=== PATIENT | female | born 1955 | race African-American/Black ===

== ENCOUNTER 2017-03-23 15:38 | Inpatient (IN) ==
[~2017-03-23 15:38] MED LIST: SODIUM CHLORIDE 0.9% 1,000 ML IV SCH
[2017-03-23] MEDS ORDERED: SODIUM CHLORIDE 0.9% 500 ML IV STA (16:34)
--- NOTE | 2017-03-23 16:43 | Emergency Department Note ---
IMartinez Brittany, am scribing for, and in the presence of, Alejandra Heath DO 16: 41. IKumar Debra, DO, personally performed the services described in this documentation, ascribed by Elizabeth Henriquez in my presence, and it is both accurate and complete [id number] . Arrival - Arrival Chief Complaint: Blood Pressure Stated Complaint: Hypotension ED Nursing Triage Note: Patient brought in per EMS with a complaint of weakness and diaphoresis. Started prior to lunch. Patient is a MWF dialysis patient. Went to dialysis yesterday. States that she got nauseated today. History of polycystic kidney disease. Mode of Arrival: Stretcher Limitations: No Limitations Source: Patient, Family Time Seen by Provider: 03/23/17 16:19 - History of Present Illness HPI Narrative: This is a 61 y/o black female,who presents to the ED with c/o decreased BP which started 1 hour [employer]LE [employer]. She states she had diarrhea yesterday. She reports 2 episodes of diarrhea. She denies any vomiting, fever, or chills, but notes nausea. She is a current dialysis pt, Dr. Contreras follows her. She reports her last dialysis Tx was yesterday and she felt normal after it. Pt has no other complaints/pain in the ED at this time. Pt has a PMHx of A-fib, SVT, thyroid disorder, Dialysis M-W-F, renal failure, polycystic kidney disease, diverticulosis, pancreatitis, arthritis, and sickle cell disease. Pt has had a bilateral nephrectomy, abdominal surgery, gastric bypass surgery, thyroid surgery, cholecystectomy, hysterectomy, and gynecological surgery. PT has a family medical Hx of HTN, diabetes, and heart disease. Pt denies a social Hx. Onset (ago): hour(s) (1 Hour [employer]) Consistency: constant Severity: moderate Date of Last Menstrual Period: Hysterectomy Allergies/Adverse Reactions: Allergies Allergy/AdvReac Type Severity Reaction Status Date / Time Penicillins Allergy Intermediate ANAPHYLAXIS Verified 12/27/15 19:40 Sulfa (Sulfonamide Allergy Intermediate ITCHING Verified 12/27/15 19:40 Antibiotics) codeine AdvReac Intermediate Abdominal Verified 12/27/15 19:40 Pain phenytoin [From Dilantin] AdvReac Intermediate Migraine Verified 12/27/15 19:40 propoxyphene [From Darvon] AdvReac Intermediate Migraine Verified 12/27/15 19:40 Home Medications: Home Medications Medication Instructions Recorded Confirmed Type Promethazine HCl 25 mg PO Q6H 02/18/15 03/23/17 History Midodrine HCl 10 mg PO TID 02/20/16 03/23/17 History Cyanocobalamin (Vitamin B-12) 2,000 mcg PO DAILY 07/20/16 03/23/17 History [Vitamin B-12] Docusate Sodium Cap [Colace Cap] 100 mg PO BID 07/20/16 03/23/17 History Pantoprazole Sodium [Protonix] 40 mg PO QAM 07/20/16 03/23/17 History Aspirin EC Tab 81 mg PO DAILY 11/28/16 03/23/17 History Hydrocodone/Acetaminophen 1 tablet PO TID PRN 11/28/16 03/23/17 History [Hydrocodon-Acetaminophn 10-325] Omeprazole [Prilosec] 20 mg PO BID 12/14/16 03/23/17 History Calcium Acetate [Phoslo] 667 mg PO TID 03/23/17 03/23/17 History Review of System - Review of System 12 point system: reviewed and no additional remarkable complaints except as stated - Review of System Constitutional: Absent: chills, fever Gastrointestinal: Present: nausea, diarrhea. Absent: vomiting Endocrine: Present: other (Decreased BP) Medical,Surgical,& Family Hx - Medical History Cardio: History of: Cardiac Dysrhythmia (afib and SVT ), Valvular Heart Disease , Cardiovascular Problems No history of: Hypertension Neurology: History of: Migraine No history of: Seizures, TIA HEENT: History of: Eye Problem (GLASSES), HEENT Problems (allergies) Endocrine: History of: Thyroid Disorder (ELEVATED CALCIUM) Renal: History of: Dialysis (m-w-f), Renal Failure, Renal Problems (polycystic kidney disease) Gastrointestinal: History of: Diverticulitis/ Diverticulosis, Liver Problems ( polycystic disease), Pancreatitis, GI Problems Musculoskeletal: History of: Musculoskeletal Problems (arthritis) Hematology: History of: Anemia (Anemia of chronic disease), Sickle Cell Disease (Sickle cell trait) No history of: Blood Transfusion Reaction Reproductive: History of: Abnormal Pap Smear, Ovarian Cysts Other: No history of: Anesthesia Reactions - Surgical History Cardiac Surgeries: Patient Denies: Cardiac Catheterization (hx. ablation for svt.) Thoracic Surgeries: Surgical HX of;: Kidney (Renal Surgery) (Bilateral nephrectomy), Nephrectomy (Bilateral nephrectomy) Patient denies;: Organ Transplant, Lobectomy Neurologic Surgeries: Patient denies: Neurologic Surgery HEENT Surgeries: Surgical HX of: Thyroid Surgery (07/12/15, parathyroid removal) Patient denies: Eye Surgery, Tonsilectomy & Adenoidectomy Abdominal Surgeries: Surgical HX of: Abdominal Surgery, Cholecystectomy, Gastric Bypass Surgery Reproductive Surgeries: Surgical HX of;: Gynecologic Surgery, Hysterectomy ( With oophorectomy) - Family History Family History: Reports;: Family Diabetes, Family Heart Disease (PARENTS 2 BROTHERS), Family Hypertension (PARENTS SIBLINGS) - Social History Smoking Status: Never smoker Exam Vital Signs: Vital Signs Temperature 97.4 F L 03/23/17 15:47 Pulse Rate 74 03/23/17 15:52 Respiratory Rate 22 03/23/17 15:52 Blood Pressure 70/36 03/23/17 15:52 - General General appearance: alert, in no apparent distress - Head Head exam: Present: atraumatic, normocephalic, normal inspection - Eye Eye exam: Present: normal appearance, PERRL, EOMI. Absent: nystagmus, miosis, mydriasis - ENT ENT exam: Present: mucous membranes dry, TM's normal bilaterally, normal external ear exam - Neck Neck exam: Present: normal inspection, full ROM, trachea midline. Absent: tenderness, meningismus, lymphadenopathy, thyromegaly - Chest Chest inspection: Present: normal inspection, symmetric chest wall rise. Absent : tenderness, rash, abscess - Respiratory Respiratory exam: Present: normal lung sounds bilaterally. Absent: prolonged expiratory phase, rales, respiratory distress, rhonchi, stridor, wheezes - Cardiovascular Cardiovascular exam: Present: regular rate, normal rhythm, normal heart sounds. Absent: murmur, rubs, gallop, clicks, JVD - Abdominal Exam Abdominal exam: Present: soft, tenderness (Mild Diffuse Abdominial tenderness), normal bowel sounds. Absent: distention, guarding, rebound, rigidity - Rectal Exam Rectal exam: Present: deferred - Extremities Exam Extremities exam: Present: normal inspection, full ROM, normal capillary refill. Absent: tenderness, pedal edema, joint swelling, calf tenderness - Back Exam Back exam: Present: normal inspection, full ROM. Absent: tenderness, muscle spasm, rashes - Neurological Exam Neurological exam: Present: alert, oriented X3, CN II-XII intact. Absent: motor sensory deficit - Psychiatric Psychiatric exam: Present: normal affect, normal mood. Absent: depressed, agitated, anxious, manic - Skin Skin exam: Present: warm, dry, intact, normal color. Absent: rash, cyanosis, diaphoresis, erythema, pallor, mottled Course Course Narrative: spoke with hospitalist who will admit pt for hypotension. Results - Labs CBC & BMP: 03/23/17 17:12 03/23/17 17:12 Lab Results: I have reviewed the patients labs Labs: Laboratory Tests 07/20/16 07/20/16 03/23/17 05:58 05:58 17:12 WBC 7.9 RBC 3.28 L 3.51 L Hgb 10.4 L 10.6 L Hct 31.7 L 31.5 L MCV 89.7 MCH 30 MCHC 33.7 RDW 15.0 Plt Count 128 L MPV 11.7 Neut % (Auto) 80.4 H 67.4 Lymph % (Auto) 6.5 L 16.4 L Tripp % (Auto) 9.2 Eos % (Auto) 6.6 Baso % (Auto) 0.3 Neut # (Auto) 5.3 Lymph # (Auto) 0.6 L 1.3 L Tripp # (Auto) 0.9 H 0.7 Eos # (Auto) 0.5 Baso # (Auto) 0.0 Immature Gran % 0.1 Nucleated RBC % 0.0 Immature Gran # 0.01 Lymphocytes 9 L Nucleated RBCs # 0.00 Sodium Potassium 5.2 H Chloride Carbon Dioxide Anion Gap 17.2 H BUN 54 H Creatinine 10.80 H GFR Calculation BUN/Creatinine Ratio 5.00 L Glucose 115 H Calculated Osmolality Calcium Total Bilirubin AST ALT Alkaline Phosphatase Total Creatine Kinase Total Protein Albumin Globulin Albumin/Globulin Ratio 03/23/17 03/23/17 17:12 17:12 WBC RBC Hgb Hct MCV MCH MCHC RDW Plt Count MPV Neut % (Auto) Lymph % (Auto) Tripp % (Auto) Eos % (Auto) Baso % (Auto) Neut # (Auto) Lymph # (Auto) Tripp # (Auto) Eos # (Auto) Baso # (Auto) Immature Gran % Nucleated RBC % Immature Gran # Lymphocytes Nucleated RBCs # Sodium 138 Potassium 5.6 H Chloride 99 Carbon Dioxide 31 Anion Gap 13.6 BUN 60 H Creatinine 8.80 H GFR Calculation 6 BUN/Creatinine Ratio 6.00 Glucose 98 Calculated Osmolality 291.7 Calcium 8.2 L Total Bilirubin < 0.39 AST 16 ALT 14 Alkaline Phosphatase 124 H Total Creatine Kinase 148 Total Protein 6.4 Albumin 3.4 Globulin 3.0 Albumin/Globulin Ratio 1.1 - Diagnostic Findings Procedure: Chest x-ray: report reviewed by me (Chronic lung changes with bibasilar atelectasis and pulmonary hypoinflation, stable since December. No aute cardiopulmonary disease evident.) Disposition Clinical Impression: Hypotension Case discussed with: patient, patient's family Disposition: Still a Patient Time of Disposition: 18:49
--- NOTE | 2017-03-23 17:09 | XRay Report ---
XR chest 1V portable Indication: Abnormal breath sounds. Abnormal blood pressure. Chest one view: Comparison 12/14/2016. Innominate vein stent is again shown. Heart size remains normal. Coarsened interstitial markings of the lungs, pulmonary hypoinflation and bibasilar atelectasis versus scarring also stable. No new infiltrates. No significant pulmonary edema. Impression: Chronic lung changes with bibasilar atelectasis and pulmonary hypoinflation, stable since December. No acute cardiopulmonary disease evident. PROCEDURE INTERPRETED AT [facility] DEPARTMENT OF RADIOLOGY Final Report Signed by: Jaden Liu M.D.
[2017-03-23 17:26] LABS: Basophils % 0.3 % (0.0-0.8); Eosinophils # 0.5 10*3/uL (0.0-0.87); Eosinophils % 6.6 % (0.00-10.9); Hematocrit 31.5 VOL% (35.7-47.0); Hemoglobin 10.6 GM/DL (12.0-16.0); Immature Granulocytes % 0.1 %; Immature Granulocytes Absolute 0.01 #; Lymphocytes # 1.3 10*3/uL (1.4-4.0); Lymphocytes % 16.4 % (21.3-54.2); Mean Corpuscular HGB Conc 33.7 GM/DL (32-36); Mean Corpuscular Hemoglobin 30 PG (27-34); Mean Corpuscular Volume 89.7 FL (87-102); Mean Platelet Volume 11.7 FL (9.6-12.0); Monocytes # 0.7 10*3/uL (0.11-0.8); Monocytes % 9.2 % (1.7-12.7); Neutrophils # 5.3 10*3/uL (1.4-7.4); Neutrophils % 67.4 % (38.7-73.9); Platelet Count 128 T/CUMM (130-400); Red Blood Count 3.51 MC/CUMM (3.8-5.5); White Blood Count 7.9 T/CUMM (4-12)
[2017-03-23 17:41] LABS: Alanine Aminotransferase 14 U/L (13-56); Albumin 3.4 G/DL (3.4-5.0); Alkaline Phosphatase 124 U/L (45-117); Aspartate Amino Transferase 16 U/L (0-37); Bilirubin,Total < 0.39 MG/DL (0.2-1.0); Blood Urea Nitrogen 60 MG/DL (7-18); Calcium 8.2 MG/DL (8.5-10.1); Glucose 98 MG/DL (74-106); Osmolality,Calculated 291.7 MOS/KG (273-304); Potassium 5.6 MMOL/L (3.5-5.1); Sodium 138 MMOL/L (136-145); Total Protein 6.4 G/DL (6.4-8.3)
[2017-03-23 17:44] LABS: Troponin I Only < 0.015 NG/ML (0.00-0.045)
--- NOTE | 2017-03-23 19:03 | CT Report ---
CT abdomen pelvis wo con Indication: Abdominal pain. CT ABDOMEN AND PELVIS WITHOUT CONTRAST DLP: 394 mGy*cm. One or more of the following dose reduction techniques was used: Automated exposure control, adjustment of the mA and/or kV according the patient size, or use of iterative reconstruction techniques. Comparison: 07/20/2016. Technique: Axial noncontrast CT images of the abdomen and pelvis were obtained. Abdomen: Heart size remains normal. Scarring lung bases again shown, overall improved from the previous exam. 2 numerous to count liver cysts are stable overall. Kidneys are surgically absent. Spleen, pancreas and adrenal glands are within normal limits absent contrast. 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 No bowel obstruction. Calcified atheromatous disease is noted. Pelvis: Urinary bladder is completely contracted. Rectosigmoid colon is unremarkable. Uterus and adnexal structures are absent. Phleboliths distributed throughout the pelvis. Normal appendix without inflammation. No free fluid, free air or lymphadenopathy. No new bone lesions. Impression: 1. No acute intra-abdominal or pelvic pathology. 2. Multiple chronic findings are similar to numerous previous examinations, including liver cysts, bibasilar interstitial scarring of the lungs and surgical absence the kidneys. 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 PROCEDURE INTERPRETED AT [facility] DEPARTMENT OF RADIOLOGY Final Report Signed by: Jaden Liu M.D.
[2017-03-23] MEDS ORDERED: NOREPINEPHRINE 4 MG/4 ML VIAL IV ONE (19:12)
[2017-03-23] MEDS ORDERED: NOREPINEPHRINE 8 MG in SODIUM CHLORIDE 0.9% 242 ML IV SCH (20:00)
--- NOTE | 2017-03-23 20:04 | Hospitalist History & Physical ---
Assessment and Plan - Time spent with patient Time spent with patient: Greater than 30 minutes (1) Hypotension Status: Chronic Assessment and plan: I am uncertain exactly what etiology is whether is cardiogenic or secondary to infectious process. Start the patient on GI tailored antibiotics. Obtain stool studies. We will admit to the CCU. Will administer fluids as necessary. Will hold Levophed for now. Obtain serial troponins. We will also obtain an EKG if the patient developed chest pain. Current Visit: No (2) Chest pain Status: Acute Assessment and plan: Serial troponins. Consult cardiology. Obtain echocardiogram. Current Visit: No (3) Abdominal pain Problem details: Per surgery . Status: Acute Assessment and plan: CT the abdomen appears to show no acute process. Amylase lipase do not represents pancreatitis. CT shows numerous cysts in the liver which may be the cause of the patient's pain. Will obtain a right upper quadrant ultrasound. Current Visit: No Qualifiers: Abdominal location: right lower quadrant Qualified Code(s): R10.31 - Right lower quadrant pain (4) Hyperkalemia Status: Acute Assessment and plan: Administer kayexalate now. Will reevaluate tomorrow. Current Visit: No (5) End stage renal disease on dialysis Problem details: No acute indication for dialysis at this time. Status: Chronic Assessment and plan: Consult nephrology. Current Visit: No History of Present Illness Chief complaint: Weakness and diaphoresis History of present illness: Ms. Juanjose Scott is a 61 year old female with coronary artery disease, end-stage renal disease on hemodialysis Saturday, history of A. fib presents with weakness and diaphoresis. Patient states day prior to admission she developed sudden onset weakness while sitting and watching television. Around this time she had diarrhea and developed right upper quadrant pain. She also had low-grade nausea with no vomiting fever or chills. She denies any chest pain or shortness of breath. Denies any melena bright blood per rectum hematochezia or hematemesis. Patient denies any headache, syncope, neck pain, lower extremity pain. While in the ED patient's blood pressure was noted to be low at 60 systolics. She was initiated on Levophed and developed chest pain and the sensation of impending doom. EKG was obtained which was sinus and revealed no evidence of acute coronary syndrome. Levophed was discontinued. In the ER patient had a chest x-ray, CT of the abdomen which revealed no acute abnormal findings, basic blood work and a troponin which was negative. Home Medications Medication Instructions Recorded Confirmed Type Promethazine HCl 25 mg PO Q6H 02/18/15 03/23/17 History Midodrine HCl 10 mg PO TID 02/20/16 03/23/17 History Cyanocobalamin (Vitamin B-12) 2,000 mcg PO DAILY 07/20/16 03/23/17 History [Vitamin B-12] Docusate Sodium Cap [Colace Cap] 100 mg PO BID 07/20/16 03/23/17 History Pantoprazole Sodium [Protonix] 40 mg PO QAM 07/20/16 03/23/17 History Aspirin EC Tab 81 mg PO DAILY 11/28/16 03/23/17 History Hydrocodone/Acetaminophen 1 tablet PO TID PRN 11/28/16 03/23/17 History [Hydrocodon-Acetaminophn 10-325] Omeprazole [Prilosec] 20 mg PO BID 12/14/16 03/23/17 History Calcium Acetate [Phoslo] 667 mg PO TID 03/23/17 03/23/17 History Allergies Allergy/AdvReac Type Severity Reaction Status Date / Time Penicillins Allergy Intermediate ANAPHYLAXIS Verified 12/27/15 19:40 Sulfa (Sulfonamide Allergy Intermediate ITCHING Verified 12/27/15 19:40 Antibiotics) codeine AdvReac Intermediate Abdominal Verified 12/27/15 19:40 Pain phenytoin [From Dilantin] AdvReac Intermediate Migraine Verified 12/27/15 19:40 propoxyphene [From Darvon] AdvReac Intermediate Migraine Verified 12/27/15 19:40 Medical,Surgical,& Family Hx - Medical History Cardio: History of: Cardiac Dysrhythmia (afib and SVT ), Valvular Heart Disease , Cardiovascular Problems No history of: Hypertension Neurology: History of: Migraine No history of: Seizures, TIA HEENT: History of: Eye Problem (GLASSES), HEENT Problems (allergies) Endocrine: History of: Thyroid Disorder (ELEVATED CALCIUM) Renal: History of: Dialysis (m-w-f), Renal Failure, Renal Problems (polycystic kidney disease) Gastrointestinal: History of: Diverticulitis/ Diverticulosis, Liver Problems ( polycystic disease), Pancreatitis, GI Problems Musculoskeletal: History of: Musculoskeletal Problems (arthritis) Hematology: History of: Anemia (Anemia of chronic disease), Sickle Cell Disease (Sickle cell trait) No history of: Blood Transfusion Reaction Reproductive: History of: Abnormal Pap Smear, Ovarian Cysts Other: No history of: Anesthesia Reactions - Surgical History Cardiac Surgeries: Patient Denies: Cardiac Catheterization (hx. ablation for svt.) Thoracic Surgeries: Surgical HX of;: Kidney (Renal Surgery) (Bilateral nephrectomy), Nephrectomy (Bilateral nephrectomy) Patient denies;: Organ Transplant, Lobectomy Neurologic Surgeries: Patient denies: Neurologic Surgery HEENT Surgeries: Surgical HX of: Thyroid Surgery (07/12/15, parathyroid removal) Patient denies: Eye Surgery, Tonsilectomy & Adenoidectomy Abdominal Surgeries: Surgical HX of: Abdominal Surgery, Cholecystectomy, Gastric Bypass Surgery Reproductive Surgeries: Surgical HX of;: Gynecologic Surgery, Hysterectomy ( With oophorectomy) - Family History Family History: Reports;: Family Diabetes, Family Heart Disease (PARENTS 2 BROTHERS), Family Hypertension (PARENTS SIBLINGS) - Social History Smoking Status: Never smoker 12 point system: reviewed and no additional remarkable complaints except as stated Exam - Constitutional Vitals: Period Temp Pulse Resp BP Sys/Bond Pulse Ox Last 24 Hr 97.4 F-97.4 F 57-74 15-24 65-82/35-45 General appearance: no acute distress - Head Head exam: Present: normocephalic, atraumatic - Eye Eye exam: Present: EOMI Pupils: Present: DENISHA - ENT ENT exam: Present: normal exam - Neck Neck exam: Present: normal inspection - Respiratory Respiratory exam: Present: clear to auscultation bilaterally. Absent: rhonchi, wheezes - Cardiovascular Cardiovascular exam: Present: regular rate and rhythm. Absent: gallop, rubs, systolic murmur - GI/Abdominal GI/Abdominal exam: Present: normal bowel sounds, tenderness (RUQ pain), soft. Absent: distended, firm, guarding, rebound - Extremities Exam Extremities exam: Present: normal inspection. Absent: calf tenderness, edema Results - Labs CBC & BMP: 03/23/17 17:12 03/23/17 17:12 Lab Results: I have reviewed the past 24 hour labs
[2017-03-23] MEDS ORDERED: SODIUM POLYSTYRENE SULFATE 15 GM/60 ML BOTTLE PO ONE (20:23)
[2017-03-23] MEDS: ERTAPENEM 500 MG in SODIUM CHLORIDE 0.9% 100 ML IV SCH (21:00)
[2017-03-23] MEDS: ONDANSETRON 4 MG/2 ML VIAL IV PRN (21:30)
[2017-03-23] MEDS ORDERED: ONDANSETRON 4 MG/2 ML VIAL ONE (21:32)
[2017-03-23 21:34] LABS: Blood Urea Nitrogen 59 MG/DL (7-18); Calcium 8.4 MG/DL (8.5-10.1); Glucose 100 MG/DL (74-106); Magnesium 2.5 MG/DL (1.8-2.4); Osmolality,Calculated 291.7 MOS/KG (273-304); Sodium 138 MMOL/L (136-145); Troponin I Only < 0.015 NG/ML (0.00-0.045)
[2017-03-23 21:37] LABS: Potassium 6.5 MMOL/L (3.5-5.1)
[2017-03-23] MEDS: metroNIDAZOLE INJ 500 MG in PREMIX 1 EACH IV SCH (21:50)
[2017-03-23] MEDS ORDERED: CALCIUM CHLORIDE 1,000 MG/10 ML SYRINGE IV ONE ×2 (21:51→22:30)
[2017-03-23] MEDS ORDERED: SODIUM CHLORIDE 0.9% 1,000 ML IV SCH (22:30)
[2017-03-23] MEDS: PHENYLEPHRINE DRIP 40 MG/250 ML PREMIX IV SCH (23:31)
--- NOTE | 2017-03-23 23:34 | Nephrology Consult Note ---
History of Present Illness Chief complaint: Hypotension end-stage renal disease History of present illness: Ms. Juanjose Scott is a 61 year old female with history of end-stage renal disease due to polycystic kidney disease. The patient dialyzes on a Saturday schedule at the [place] dialysis unit. She has had a history of bilateral nephrectomy due to polycystic kidney disease does have cyst on her liver and a history of diverticulitis. Moreover, patient deals with hypotension and is on midodrine on a scheduled basis. According to the patient she dialyzes without difficulty on yesterday. Today she was noticed that she is having a bout of diverticulitis symptoms and became uncomfortable felt like she was short of breath and was at that time she knows that her blood pressure was very low and EMS was called. Systolics were noted to be in the 70s on evaluation. Moreover patient had follow-up labs that showed initially a potassium of 5. 6 repeat potassium at greater than 6 and the follow-up potassium was noted to be 4.8. The patient has been admitted to an ICU setting she has received IV fluids and getting maintenance fluids at this time normal saline at 50 cc an hour. She is starting Moy-Synephrine at this time. At present she states that she feels fine no shortness of breath or chest pain. She has no history of change in her medications. Typically this patient's potassium is below 4. Home Medications Medication Instructions Recorded Confirmed Type Promethazine HCl 25 mg PO Q6H 02/18/15 03/23/17 History Midodrine HCl 10 mg PO TID 02/20/16 03/23/17 History Cyanocobalamin (Vitamin B-12) 2,000 mcg PO DAILY 07/20/16 03/23/17 History [Vitamin B-12] Docusate Sodium Cap [Colace Cap] 100 mg PO BID 07/20/16 03/23/17 History Pantoprazole Sodium [Protonix] 40 mg PO QAM 07/20/16 03/23/17 History Aspirin EC Tab 81 mg PO DAILY 11/28/16 03/23/17 History Hydrocodone/Acetaminophen 1 tablet PO TID PRN 11/28/16 03/23/17 History [Hydrocodon-Acetaminophn 10-325] Omeprazole [Prilosec] 20 mg PO BID 12/14/16 03/23/17 History Calcium Acetate [Phoslo] 667 mg PO TID 03/23/17 03/23/17 History Allergies Allergy/AdvReac Type Severity Reaction Status Date / Time Penicillins Allergy Intermediate ANAPHYLAXIS Verified 12/27/15 19:40 Sulfa (Sulfonamide Allergy Intermediate ITCHING Verified 12/27/15 19:40 Antibiotics) codeine AdvReac Intermediate Abdominal Verified 12/27/15 19:40 Pain phenytoin [From Dilantin] AdvReac Intermediate Migraine Verified 12/27/15 19:40 propoxyphene [From Darvon] AdvReac Intermediate Migraine Verified 12/27/15 19:40 Medical,Surgical,& Family Hx - Medical History Cardio: History of: Cardiac Dysrhythmia (afib and SVT ), Valvular Heart Disease , Cardiovascular Problems No history of: Hypertension Neurology: History of: Migraine No history of: Seizures, TIA HEENT: History of: Eye Problem (GLASSES), HEENT Problems (allergies) Endocrine: History of: Thyroid Disorder (ELEVATED CALCIUM) Renal: History of: Dialysis (--), Renal Failure, Renal Problems (polycystic kidney disease) Gastrointestinal: History of: Diverticulitis/ Diverticulosis, Liver Problems ( polycystic disease), Pancreatitis, GI Problems Musculoskeletal: History of: Musculoskeletal Problems (arthritis) Hematology: History of: Anemia (Anemia of chronic disease), Sickle Cell Disease (Sickle cell trait) No history of: Blood Transfusion Reaction Reproductive: History of: Abnormal Pap Smear, Ovarian Cysts Other: No history of: Anesthesia Reactions - Surgical History Cardiac Surgeries: Patient Denies: Cardiac Catheterization (hx. ablation for svt.) Thoracic Surgeries: Surgical HX of;: Kidney (Renal Surgery) (Bilateral nephrectomy), Nephrectomy (Bilateral nephrectomy) Patient denies;: Organ Transplant, Lobectomy Neurologic Surgeries: Patient denies: Neurologic Surgery HEENT Surgeries: Surgical HX of: Thyroid Surgery (07/12/15, parathyroid removal) Patient denies: Eye Surgery, Tonsilectomy & Adenoidectomy Abdominal Surgeries: Surgical HX of: Abdominal Surgery, Cholecystectomy, Gastric Bypass Surgery Reproductive Surgeries: Surgical HX of;: Gynecologic Surgery, Hysterectomy ( With oophorectomy) - Family History Family History: Reports;: Family Diabetes, Family Heart Disease (PARENTS 2 BROTHERS), Family Hypertension (PARENTS SIBLINGS) - Social History Smoking Status: Never smoker Frequency of Alcohol Use: Rarely Type of Drug Use: None Review of Systems Constitutional: fatigue, malaise Cardiovascular: no diaphoresis Gastrointestinal: abdominal pain, diarrhea Musculoskeletal: back pain Exam - Vital Signs Vital signs: Period Temp Pulse Resp BP Sys/Bond Pulse Ox Last 24 Hr 97.4 F-97.4 F 57-74 15-24 65-116/35-60 100-100 - General Appearance General appearance: well-developed, well-nourished, fatigue EENT: ATNC Neck: supple Respiratory: clear Cardiology: regular rate, regular rhythm Gastrointestinal: normoactive bowel sounds Integumentary: no rash Neurologic: alert and oriented x3 Results - Labs CBC & BMP: 03/23/17 17:12 03/23/17 22:25 Assessment and Plan (1) End stage renal disease Problem details: No acute indication for PHYSIOTHERAPY AIDE at this time. Status: Chronic Current Visit: No (2) Polycystic kidney disease Status: Chronic Current Visit: No (3) Liver cyst Status: Chronic Current Visit: No (4) End stage renal disease on dialysis Problem details: No acute indication for dialysis at this time. Status: Chronic Current Visit: No (5) Nausea & vomiting Status: Acute Assessment and plan: Seems to improve patient has responded to Zofran. Current Visit: No (6) Hyperkalemia Status: Resolved Current Visit: Yes
[2017-03-24] MEDS ORDERED: CALCIUM CHLORIDE 1,000 MG in SODIUM CHLORIDE 0.9% 100 ML IV ONE
[2017-03-24 06:02] LABS: Basophils % 0.5 % (0.0-0.8); Eosinophils # 0.7 10*3/uL (0.0-0.87); Eosinophils % 8.6 % (0.00-10.9); Hematocrit 33.5 VOL% (35.7-47.0); Hemoglobin 11.1 GM/DL (12.0-16.0); Immature Granulocytes % 0.2 %; Immature Granulocytes Absolute 0.02 #; Lymphocytes # 2.3 10*3/uL (1.4-4.0); Lymphocytes % 28.5 % (21.3-54.2); Mean Corpuscular HGB Conc 33.1 GM/DL (32-36); Mean Corpuscular Hemoglobin 29 PG (27-34); Mean Corpuscular Volume 88.2 FL (87-102); Monocytes # 0.7 10*3/uL (0.11-0.8); Monocytes % 8.6 % (1.7-12.7); Neutrophils # 4.4 10*3/uL (1.4-7.4); Neutrophils % 53.6 % (38.7-73.9); Platelet Count 149 T/CUMM (130-400); White Blood Count 8.2 T/CUMM (4-12)
[2017-03-24] MEDS: metroNIDAZOLE INJ 500 MG in PREMIX 1 EACH IV SCH ×3 (06:30→21:53)
[2017-03-24 07:09] LABS: Calcium 8.9 MG/DL (8.5-10.1); Osmolality,Calculated 296.4 MOS/KG (273-304); Potassium 5.7 MMOL/L (3.5-5.1)
--- NOTE | 2017-03-24 08:14 | EKG Report ---
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
--- NOTE | 2017-03-24 08:46 | EKG Report ---
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
--- NOTE | 2017-03-24 08:51 | Nephrology Progress Note ---
Nephrology - PN: Subj Interval history: The patient is resting states she feels much better today. She remains on Moy- Synephrine blood pressures are better. She voices no other complaints requests to have something to eat. Will start clear liquid diet. Will titrate down IV fluids to 25 cc an hour. Exam (PN)-Nephrology - Vital Signs Vital signs: Period Temp Pulse Resp BP Sys/Bond Pulse Ox Last 24 Hr 97.4 F-98.1 F 53-74 10-24 65-137/35-82 100-100 - General Appearance General appearance: well-developed, well-nourished EENT: ATNC Neck: supple Respiratory: clear Cardiology: regular rate, regular rhythm Gastrointestinal: normoactive bowel sounds, no tenderness Musculoskeletal: no deformities, no clubbing Psychiatric: mood/affect appropriate, cooperative - Lab 03/24/17 05:29 03/24/17 05:29 Most recent lab results Calcium 8.9 MG/DL (8.5-10.1) 03/24/17 05:29 Magnesium 2.5 MG/DL (1.8-2.4) H 03/23/17 21:04 Assessment and Plan (1) End stage renal disease Problem details: No acute indication for TIRE SPOTTER at this time. Status: Chronic Current Visit: No (2) Polycystic kidney disease Status: Chronic Current Visit: No (3) Liver cyst Status: Chronic Current Visit: No (4) End stage renal disease on dialysis Problem details: No acute indication for dialysis at this time. Status: Chronic Current Visit: No (5) Nausea & vomiting Status: Acute Assessment and plan: Seems to improve patient has responded to Zofran. Current Visit: No (6) Hyperkalemia Status: Resolved Current Visit: Yes
--- NOTE | 2017-03-24 09:03 | Ultrasound Report ---
US right upper quadrant Indication: Right upper quadrant abdominal pain. ULTRASOUND ABDOMEN, limited Comparison: 08/03/2015 Findings: Liver: Normal size. Multiple cystic lesions distributed throughout the liver parenchyma, largest 26 mm diameter. In general, these appear unchanged from prior exam. Within the limits of the widespread distribution, no solid change identified in any of the cysts. Gallbladder: Surgically absent Common bile duct: 3 mm Pancreas: Unremarkable Right kidney: Surgically absent Impression: Multiple liver cysts, simple appearing and relatively unchanged. Status post cholecystectomy and bilateral nephrectomy. PROCEDURE INTERPRETED AT [facility] DEPARTMENT OF RADIOLOGY Final Report Signed by: Jaden Liu M.D.
[2017-03-24] MEDS: PHENYLEPHRINE DRIP 40 MG/250 ML PREMIX IV SCH ×2 (09:17→23:25)
[2017-03-24] MEDS: SODIUM CHLORIDE 0.9% 1,000 ML IV SCH ×2 (09:26→22:57)
[2017-03-24] MEDS ORDERED: SODIUM POLYSTYRENE SULFATE 15 GM/60 ML BOTTLE PO ONE (10:10)
--- NOTE | 2017-03-24 10:45 | Hospitalist Progress Note ---
Assessment and Plan (1) Hypotension Status: Acute Assessment and plan: 1)hyperkalemia- repeat kayexalate this morning. 2)hypotension- restart home midodrine, bolus with 500cc IVF, and wean Moy. 3)ESRD on HD- should dialyze tomorrow 4)H/o afib- NSR now. 5)diverticulitis with sepsis- on invanz and flagyl. CT scan without abscess or focal infection. diarrhea resolved. Continue volume resuscitation today and monitor. check lactic acid stat. may need central line if not weaned from moy. Get Bcx also. She is alert and tolerating diet. Current Visit: Yes (2) Polycystic kidney disease Status: Chronic Current Visit: No (3) Obesity Status: Chronic Current Visit: No (4) Liver cyst Status: Chronic Current Visit: No (5) End stage renal disease on dialysis Problem details: No acute indication for dialysis at this time. Status: Chronic Current Visit: No (6) Hypocalcemia Status: Chronic Current Visit: No (7) Hyperkalemia Status: Acute Current Visit: No Hospitalist: Subjective Interval history: Ms Juanjose Scott is feeling much better. She says the sweating without fever following a prolonged episode of diarrhea that brought her to the hospital yesterday has resolved. She is eating. She denies pain. She takes Midodrine at home and her usual SBP is 80-90, sometimes SBP 75, but when it is that low she has numbness in her lips. She is on Moy now at 65 with SBP 110s. No nausea no diarrhea and no pain. Exam - Constitutional Vitals: Period Temp Pulse Resp BP Sys/Bond Pulse Ox Last 24 Hr 96.8 F-98.1 F 53-75 10-24 65-137/35-82 91-100 General appearance: no acute distress, over weight - Head Head exam: Present: normocephalic, atraumatic - Eye Eye exam: Present: EOMI. Absent: scleral icterus Pupils: Present: DENISHA - Respiratory Respiratory exam: Present: clear to auscultation bilaterally - Cardiovascular Cardiovascular exam: Present: regular rate and rhythm - GI/Abdominal GI/Abdominal exam: Present: normal bowel sounds, soft. Absent: tenderness - Extremities Exam Extremities exam: Absent: edema Results - Labs CBC & BMP: 03/24/17 05:29 03/24/17 05:29 Lab Results: I have reviewed the past 24 hour labs
[2017-03-24] MEDS: MIDODRINE 5 MG TABLET PO SCH ×3 (11:37→20:33)
--- NOTE | 2017-03-24 13:34 | ECHO Report ---
Hortensia Franklin Exam Date: 03/24/2017 08:51 Referring Physician: Technologist: Rajni Daniels RDCS Age: 61 Ht (in): 64 Wt (lb): 175 Gender: F Exam Location: [facility] Echo Indications: Chest pain, unspecified, Weakness, Chronic fatigue, unspecified, Hypotension, hx Afib, Abdominal pain, Hyperkalemia, Polycystic kidney disease, End stage renal disease BP: 112 / 67 HR: 65 Rhythm: Sinus Technical Quality: IMPRESSIONS Normal chamber sizes Normal LV systolic function with ejection fraction estimated be 65% without segmental wall motion abnormality Aortic sclerosis without stenosis 1+ aortic regurgitation and tricuspid regurgitation with RVSP 34 mmHg plus RAP MEASUREMENTS (Male / Female) Normal Values 2D ECHO LV Diastolic Diameter PLAX 4.2 cm 4.2 - 5.9 / 3.9 - 5.3 cm LV Systolic Diameter PLAX 2.5 cm LV Fractional Shortening PLAX 41.2 % IVS Diastolic Thickness 0.9 cm 0.6 - 1.0 / 0.6 - 0.9 cm LVPW Diastolic Thickness 0.9 cm 0.6 - 1.0 / 0.6 - 0.9 cm RV Internal Dim ED PLAX 2.4 cm Aortic Root Diameter 3.0 cm LA Systolic Diameter LX 3.2 cm 3.0 - 4.0 / 2.7 - 3.8 cm DOPPLER TR Peak Velocity 291.0 cm/s TR Peak Gradient 33.9 mmHg FINDINGS Left Ventricle Normal left ventricular cavity size. Normal left ventricular wall thickness. Left ventricular ejection fraction is estimated at 60 %. Right Ventricle The right ventricle is normal in size and function. Right Atrium The right atrium is normal in size. Left Atrium The left atrium is mildly enlarged. Mitral Valve Mildly thickened mitral valve. Trace mitral valve regurgitation. Aortic Valve Morphologically normal aortic valve without significant sclerosis or stenosis. There is no aortic regurgitation. Tricuspid Valve Morphologically normal tricuspid valve. Trace tricuspid valve regurgitation. Tricuspid regurgitation velocities suggest a PAP of 44 mmHg. Pulmonic Valve Morphologically normal pulmonic valve. Trace pulmonary valve regurgitation. Pericardium Normal pericardium without effusion. Aorta Normal ascending aorta dimension. Minh Mcgrath (Electronically Signed) Final Date: 24 March 2017 13:34
[2017-03-24] MEDS: ONDANSETRON 4 MG/2 ML VIAL IV PRN ×2 (14:05→18:34)
--- NOTE | 2017-03-24 15:11 | EKG Report ---
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
--- NOTE | 2017-03-24 17:17 | Cardiology Consult Note ---
Assessment and Plan (1) Chest pain Status: Acute Assessment and plan: 1. 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 She presents with hypotension associated with dizziness and diaphoresis as well as abdominal pain and diarrhea consistent with sepsis from a GI source? 2. She had transient chest pain after Levophed was started, but resolved after was weaned. 3. EKG shows some T-wave peaking associated with her hyperkalemia which is being treated. 4. History of negative exercise myocardial scan from 01/2017 here in the hospital and she had normal LV function. 5. Do not suspect ACS, and cardiac panel is negative. Current Visit: No (2) Hyperkalemia Status: Acute Current Visit: No History of Present Illness - Consult Narrative History of present illness: Ms. Juanjose Scott is a 61 year [address] followed Dr. Montoya for SVT status post ablation by Dr. Gunn in 2015. There is reported remote atrial fibrillation but she appears to been in sinus for some time. She felt a little bit bad in general the day before admission. Yesterday afternoon at 1300 she felt sweaty and dizzy with standing without presyncope or syncope. She denies shortness of breath. She did not have any chest pain, although she did have some chest pain after she received Levophed before was weaned. She had hyperkalemia when she came in with T-wave peaking consistent with this. She has no chest pain or shortness of breath now. She did have some abdominal pain and diarrhea associated with the event and a history of diverticulitis by her report. CC: Meme Serra MD - Home Medications and Allergies Home Medications: Home Medications Medication Instructions Recorded Confirmed Type Promethazine HCl 25 mg PO Q6H 02/18/15 03/23/17 History Midodrine HCl 10 mg PO TID 02/20/16 03/23/17 History Cyanocobalamin (Vitamin B-12) 2,000 mcg PO DAILY 07/20/16 03/23/17 History [Vitamin B-12] Docusate Sodium Cap [Colace Cap] 100 mg PO BID 07/20/16 03/23/17 History Pantoprazole Sodium [Protonix] 40 mg PO QAM 07/20/16 03/23/17 History Aspirin EC Tab 81 mg PO DAILY 11/28/16 03/23/17 History Hydrocodone/Acetaminophen 1 tablet PO TID PRN 11/28/16 03/23/17 History [Hydrocodon-Acetaminophn 10-325] Omeprazole [Prilosec] 20 mg PO BID 12/14/16 03/23/17 History Calcium Acetate [Phoslo] 667 mg PO TID 03/23/17 03/23/17 History Allergies/Adverse Reactions: Allergies Allergy/AdvReac Type Severity Reaction Status Date / Time Penicillins Allergy Intermediate ANAPHYLAXIS Verified 12/27/15 19:40 Sulfa (Sulfonamide Allergy Intermediate ITCHING Verified 12/27/15 19:40 Antibiotics) codeine AdvReac Intermediate Abdominal Verified 12/27/15 19:40 Pain phenytoin [From Dilantin] AdvReac Intermediate Migraine Verified 12/27/15 19:40 propoxyphene [From Darvon] AdvReac Intermediate Migraine Verified 12/27/15 19:40 Medical,Surgical,& Family Hx - Medical History Cardio: History of: Cardiac Dysrhythmia (afib and SVT ), Valvular Heart Disease , Cardiovascular Problems No history of: Hypertension Neurology: History of: Migraine No history of: Seizures, TIA HEENT: History of: Eye Problem (GLASSES), HEENT Problems (allergies) Endocrine: History of: Thyroid Disorder (ELEVATED CALCIUM) Renal: History of: Dialysis (m-w-f), Renal Failure, Renal Problems (polycystic kidney disease) Gastrointestinal: History of: Diverticulitis/ Diverticulosis, Liver Problems ( polycystic disease), Pancreatitis, GI Problems Musculoskeletal: History of: Musculoskeletal Problems (arthritis) Hematology: History of: Anemia (Anemia of chronic disease), Sickle Cell Disease (Sickle cell trait) No history of: Blood Transfusion Reaction Reproductive: History of: Abnormal Pap Smear, Ovarian Cysts Other: No history of: Anesthesia Reactions - Surgical History Cardiac Surgeries: Patient Denies: Cardiac Catheterization (hx. ablation for svt.) Thoracic Surgeries: Surgical HX of;: Kidney (Renal Surgery) (Bilateral nephrectomy), Nephrectomy (Bilateral nephrectomy) Patient denies;: Organ Transplant, Lobectomy Neurologic Surgeries: Patient denies: Neurologic Surgery HEENT Surgeries: Surgical HX of: Thyroid Surgery (07/12/15, parathyroid removal) Patient denies: Eye Surgery, Tonsilectomy & Adenoidectomy Abdominal Surgeries: Surgical HX of: Abdominal Surgery, Cholecystectomy, Gastric Bypass Surgery Reproductive Surgeries: Surgical HX of;: Gynecologic Surgery, Hysterectomy ( With oophorectomy) - Family History Family History: Reports;: Family Diabetes, Family Heart Disease (PARENTS 2 BROTHERS), Family Hypertension (PARENTS SIBLINGS) - Social History Smoking Status: Never smoker Frequency of Alcohol Use: Rarely Type of Drug Use: None Physical Examination Vital Signs Temp Pulse Resp BP 97.4 F L 71 24 66/40 03/23/17 15:39 03/23/17 15:39 03/23/17 15:39 03/23/17 15:39 General: Present: Appears Well, No Apparent Distress Cardiac: Present: Reg Rate and Rhythm. Absent: Diastolic Murmur, Gallop Lungs: Present: No Wheeze, Rales, Rhonchi Abdomen: Present: Soft. Absent: Tender Extremities: Absent: Edema, Cold Result/EKG - Labs CBC & BMP: 03/24/17 05:29 03/24/17 05:29 Labs: Laboratory Results - last 24 hr 03/23/17 03/23/17 03/23/17 17:12 17:12 17:12 WBC 7.9 RBC 3.51 L Hgb 10.6 L Hct 31.5 L MCV 89.7 MCH 30 MCHC 33.7 RDW 15.0 Plt Count 128 L MPV 11.7 Neut % (Auto) 67.4 Lymph % (Auto) 16.4 L Bill[place] % (Auto) 9.2 Eos % (Auto) 6.6 Baso % (Auto) 0.3 Neut # (Auto) 5.3 Lymph # (Auto) 1.3 L [place] # (Auto) 0.7 Eos # (Auto) 0.5 Baso # (Auto) 0.0 Immature Gran % 0.1 Nucleated RBC % 0.0 Immature Gran # 0.01 Nucleated RBCs # 0.00 Sodium 138 Potassium 5.6 H Chloride 99 Carbon Dioxide 31 Anion Gap 13.6 BUN 60 H Creatinine 8.80 H GFR Calculation 6 BUN/Creatinine Ratio 6.00 Glucose 98 Calculated Osmolality 291.7 Lactic Acid Calcium 8.2 L Magnesium Total Bilirubin < 0.39 AST 16 ALT 14 Alkaline Phosphatase 124 H Total Creatine Kinase 148 CK-MB (CK-2) < 1.0 Troponin I < 0.015 Total Protein 6.4 Albumin 3.4 Globulin 3.0 Albumin/Globulin Ratio 1.1 Amylase Lipase 03/23/17 03/23/17 03/23/17 17:12 21:04 22:25 WBC RBC Hgb Hct MCV MCH MCHC RDW Plt Count MPV Neut % (Auto) Lymph % (Auto) [place] % (Auto) Eos % (Auto) Baso % (Auto) Neut # (Auto) Lymph # (Auto) [place] # (Auto) Eos # (Auto) Baso # (Auto) Immature Gran % Nucleated RBC % Immature Gran # Nucleated RBCs # Sodium 138 Potassium 6.5 H* 4.8 Chloride 103 Carbon Dioxide 26 Anion Gap 15.5 H BUN 59 H Creatinine 9.00 H GFR Calculation 6 BUN/Creatinine Ratio 6.00 Glucose 100 Calculated Osmolality 291.7 Lactic Acid Calcium 8.4 L Magnesium 2.5 H Total Bilirubin AST ALT Alkaline Phosphatase Total Creatine Kinase CK-MB (CK-2) Troponin I < 0.015 Total Protein Albumin Globulin Albumin/Globulin Ratio Amylase 269 H Lipase 368.0 03/24/17 03/24/17 03/24/17 05:29 05:29 05:29 WBC 8.2 RBC 3.80 Hgb 11.1 L Hct 33.5 L MCV 88.2 MCH 29 MCHC 33.1 RDW 15.0 Plt Count 149 MPV 12.0 Neut % (Auto) 53.6 Lymph % (Auto) 28.5 [place] % (Auto) 8.6 Eos % (Auto) 8.6 Baso % (Auto) 0.5 Neut # (Auto) 4.4 Lymph # (Auto) 2.3 Bill[place] # (Auto) 0.7 Eos # (Auto) 0.7 Baso # (Auto) 0.0 Immature Gran % 0.2 Nucleated RBC % 0.0 Immature Gran # 0.02 Nucleated RBCs # 0.00 Sodium 140 Potassium 5.7 H Chloride 103 Carbon Dioxide 26 Anion Gap 16.7 H BUN 62 H Creatinine 9.50 H GFR Calculation 5 BUN/Creatinine Ratio 6.00 Glucose 90 Calculated Osmolality 296.4 Lactic Acid Calcium 8.9 Magnesium Total Bilirubin AST ALT Alkaline Phosphatase Total Creatine Kinase CK-MB (CK-2) Troponin I < 0.015 Total Protein Albumin Globulin Albumin/Globulin Ratio Amylase Lipase 03/24/17 03/24/17 11:02 12:53 WBC RBC Hgb Hct MCV MCH MCHC RDW Plt Count MPV Neut % (Auto) Lymph % (Auto) [place] % (Auto) Eos % (Auto) Baso % (Auto) Neut # (Auto) Lymph # (Auto) [place] # (Auto) Eos # (Auto) Baso # (Auto) Immature Gran % Nucleated RBC % Immature Gran # Nucleated RBCs # Sodium Potassium Chloride Carbon Dioxide Anion Gap BUN Creatinine GFR Calculation BUN/Creatinine Ratio Glucose Calculated Osmolality Lactic Acid 1.2 Calcium Magnesium Total Bilirubin AST ALT Alkaline Phosphatase Total Creatine Kinase CK-MB (CK-2) Troponin I < 0.015 Total Protein Albumin Globulin Albumin/Globulin Ratio Amylase Lipase
[2017-03-24] MEDS ORDERED: ALUMINUM/MAGNES/SIMETH MAX STR 30 ML UDCUP PO PRN (19:31)
[2017-03-24] MEDS: ERTAPENEM 500 MG in SODIUM CHLORIDE 0.9% 100 ML IV SCH (20:39)
--- NOTE | 2017-03-25 03:36 | Nephrology Progress Note ---
Nephrology - PN: Subj Interval history: The patient is resting comfortably no acute changes. Remains on Moy- Synephrine. No shortness of breath or chest pain. No fevers or chills. Exam (PN)-Nephrology - Vital Signs Vital signs: Period Temp Pulse Resp BP Sys/Bond Pulse Ox Last 24 Hr 96.8 F-97.9 F 50-123 11-22 72-188/32-68 91-100 - General Appearance General appearance: well-developed, well-nourished EENT: ATNC Neck: supple Respiratory: clear Cardiology: no edema, regular rate, regular rhythm Gastrointestinal: normoactive bowel sounds, no tenderness Integumentary: no rash Neurologic: alert and oriented x3, CN 3-12 intact Musculoskeletal: no deformities Psychiatric: mood/affect appropriate - Lab 03/24/17 05:29 03/24/17 05:29 Most recent lab results Calcium 8.9 MG/DL (8.5-10.1) 03/24/17 05:29 Magnesium 2.5 MG/DL (1.8-2.4) H 03/23/17 21:04 Assessment and Plan (1) End stage renal disease Problem details: No acute indication for BODY DIE MAKER at this time. Status: Chronic Current Visit: No (2) Polycystic kidney disease Status: Chronic Current Visit: No (3) Liver cyst Status: Chronic Current Visit: No (4) End stage renal disease on dialysis Problem details: No acute indication for dialysis at this time. Status: Chronic Current Visit: No (5) Nausea & vomiting Status: Acute Assessment and plan: Seems to improve patient has responded to Zofran. Current Visit: No (6) Hyperkalemia Status: Resolved Current Visit: Yes
[2017-03-25] MEDS: metroNIDAZOLE INJ 500 MG in PREMIX 1 EACH IV SCH ×3 (05:38→22:15)
--- NOTE | 2017-03-25 08:05 | Cardiology Progress Note ---
Assessment and Plan - Time spent with patient Time spent with patient: Less than 30 minutes (1) Atypical chest pain Status: Acute Current Visit: No (2) Hypotension Status: Acute Current Visit: Yes (3) Hyperkalemia Status: Resolved Current Visit: Yes Cardiology - PN: Subj Interval history: Ms. Juanjose Scott 81-year-old female admitted with diarrhea and hypotension. She has a history of ablation for SVT that sounds like both atrial fibrillation and AV justyn reentrant tachycardia by Dr. Morin 12/2015. She also had a normal left heart catheterization 2013 I have reviewed those films. 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 She had no epicardial stenosis. She had chest pain shortly after initiation of progress source for her hypotension that resolved when they were stopped. She is currently on dialysis in the ICU is not having panic pain. Her manual cuff indicates that she remains to be mildly hypotensive. Her ejection fraction is normal with no regional wall motion abnormality she had a normal heart cath in 2013. Her cardiac biomarkers are negative. At this time I recommend no further cardiovascular workup or evaluation. Her ECG is remarkable only for some changes possibly related to her high potassium. Have nothing further to add and I will sign off. Please call if she has recurrent cardiovascular problems. Exam (Progress Note) - Constitutional Vitals: Period Temp Pulse Resp BP Sys/Bond Pulse Ox Last 24 Hr 97.8 F-98.6 F 50-123 11-22 72-188/32-70 93-100 General appearance: morbidly obese - Head Head exam: Present: normal inspection - Eye Eye exam: Present: conjunctival injection Pupils: Present: DENISHA - ENT ENT exam: Present: normal exam - Respiratory Respiratory exam: Present: clear to auscultation bilaterally - Cardiovascular Cardiovascular exam: Present: regular rate and rhythm (No gallop or rub) - GI/Abdominal GI/Abdominal exam: Present: normal bowel sounds (Pelvis sounds are slightly hyperactive) - Extremities Exam Extremities exam: Absent: edema - Back Exam Back exam: Present: normal inspection - Neurological Exam Neurological exam: Present: alert, oriented X3 - Psychiatric Psychiatric exam: Present: normal affect, normal mood - Skin Skin exam: Present: normal color, warm, dry Result/EKG - Labs CBC & BMP: 03/24/17 05:29 03/24/17 05:29 Labs: Laboratory Results - last 24 hr 03/24/17 03/24/17 03/24/17 11:02 12:53 17:30 Lactic Acid 1.2 0.9 Troponin I < 0.015 - Impressions Impressions: No ECG this morning but the patient had ECG yesterday that was normal. - EKG EKG results: interpreted by me, WNL
[2017-03-25] MEDS: MIDODRINE 5 MG TABLET PO SCH ×3 (08:57→20:34)
[2017-03-25] MEDS: SODIUM CHLORIDE 0.9% 1,000 ML IV SCH (12:08)
--- NOTE | 2017-03-25 13:55 | Hospitalist Progress Note ---
Assessment and Plan (1) End stage renal disease Status: Acute Assessment and plan: on dialysis saturday, saturday and saturday Current Visit: No (2) Polycystic kidney disease Status: Chronic Current Visit: No (3) Anemia Status: Chronic Assessment and plan: stable Current Visit: No (4) Obesity Status: Chronic Assessment and plan: needs to lose weight Current Visit: No (5) Chest pain Status: Resolved Assessment and plan: serial troponins negative, noncardiac, normal heart cath in 2013. Cardiology has signed off Current Visit: No (6) Hypotension Status: Acute Assessment and plan: levophed, midodrine, check cortisol level in am Current Visit: Yes Hospitalist: Subjective Interval history: Patient receives dialysis on Saturday. They are having continued problems with hypotension during dialysis. She is currently on Midrin and normal saline but is still requiring Levophed. Etiology of hypotension unknown at this time. Will check a cortisol level Exam - Constitutional Vitals: Period Temp Pulse Resp BP Sys/Bond Pulse Ox Last 24 Hr 97.8 F-98.6 F 50-123 12-22 72-188/32-70 95-100 Exam: Heart Rate-[bradycardia ] Lungs-[CTAB] GI-[+bs soft, NT] Ext-[no edema] Neuro [Motor 5/5], [alert and oriented times 3] psych [normal mood and affect] General [no acute distress] Results - Labs CBC & BMP: 03/24/17 05:29 03/24/17 05:29 Lab Results: I have reviewed the past 24 hour labs Labs: blood cx negative, c. diff negative - Diagnostic Findings Procedure: Chest x-ray: report reviewed by me (chronic lung changes ), Ultrasound: report reviewed by me (multiple liver cysts)
[2017-03-25] MEDS: ONDANSETRON 4 MG/2 ML VIAL IV PRN (14:40)
[2017-03-25 15:06] LABS: Free T4 (Free Thyroxine) 0.89 NG/DL (0.76-1.46); Thyroid Stimulating Hormone 2.3 uIU/ml (0.358-3.74)
[2017-03-25] MEDS: ERTAPENEM 500 MG in SODIUM CHLORIDE 0.9% 100 ML IV SCH (20:34)
[2017-03-25] MEDS: PHENYLEPHRINE DRIP 40 MG/250 ML PREMIX IV SCH (22:53)
[2017-03-26] MEDS: SODIUM CHLORIDE 0.9% 1,000 ML IV SCH (03:00)
[2017-03-26] MEDS: ONDANSETRON 4 MG/2 ML VIAL IV PRN ×2 (03:58→14:51)
[2017-03-26 04:50] LABS: Basophils % 0.2 % (0.0-0.8); Eosinophils # 0.5 10*3/uL (0.0-0.87); Eosinophils % 8.6 % (0.00-10.9); Hematocrit 30.7 VOL% (35.7-47.0); Hemoglobin 10.2 GM/DL (12.0-16.0); Immature Granulocytes % 0.2 %; Immature Granulocytes Absolute 0.01 #; Lymphocytes # 1.6 10*3/uL (1.4-4.0); Lymphocytes % 29.5 % (21.3-54.2); Mean Corpuscular HGB Conc 33.2 GM/DL (32-36); Mean Corpuscular Hemoglobin 30 PG (27-34); Mean Corpuscular Volume 90.8 FL (87-102); Mean Platelet Volume 11.7 FL (9.6-12.0); Monocytes # 0.4 10*3/uL (0.11-0.8); Monocytes % 7.9 % (1.7-12.7); Neutrophils # 2.9 10*3/uL (1.4-7.4); Neutrophils % 53.6 % (38.7-73.9); Platelet Count 133 T/CUMM (130-400); Red Blood Count 3.38 MC/CUMM (3.8-5.5); White Blood Count 5.5 T/CUMM (4-12)
[2017-03-26 05:19] LABS: Magnesium 2.4 MG/DL (1.8-2.4); Osmolality,Calculated 285.5 MOS/KG (273-304); Potassium 5.7 MMOL/L (3.5-5.1)
[2017-03-26] MEDS: metroNIDAZOLE INJ 500 MG in PREMIX 1 EACH IV SCH ×3 (05:55→22:14)
[2017-03-26] MEDS: MIDODRINE 5 MG TABLET PO SCH ×3 (08:10→20:15)
--- NOTE | 2017-03-26 11:44 | Nephrology Progress Note ---
Nephrology - PN: Subj Interval history: Ms. Martin is resting comfortably in a good mood she denies any complaints. No shortness of breath. Tolerated dialysis on yesterday however all volume was not able to be taken off at that time. Requesting to get an additional dialysis session today. Exam (PN)-Nephrology - Vital Signs Vital signs: Period Temp Pulse Resp BP Sys/Bond Pulse Ox Last 24 Hr 97.2 F-98.0 F 57-102 10-22 78-112/42-65 87-100 - General Appearance General appearance: well-developed, well-nourished EENT: ATNC Neck: supple Respiratory: clear Cardiology: regular rate, regular rhythm Gastrointestinal: normoactive bowel sounds, no tenderness Integumentary: no rash, warm and dry Neurologic: alert and oriented x3 Musculoskeletal: no clubbing Psychiatric: mood/affect appropriate - Lab 03/26/17 04:10 03/26/17 04:10 Most recent lab results Calcium 8.0 MG/DL (8.5-10.1) L 03/26/17 04:10 Magnesium 2.4 MG/DL (1.8-2.4) 03/26/17 04:10 Assessment and Plan (1) End stage renal disease Problem details: No acute indication for PROTECTIVE SIGNAL SUPERINTENDENT at this time. Status: Chronic Current Visit: No (2) Polycystic kidney disease Status: Chronic Current Visit: No (3) Liver cyst Status: Chronic Current Visit: No (4) End stage renal disease on dialysis Problem details: No acute indication for dialysis at this time. Status: Chronic Current Visit: No (5) Nausea & vomiting Status: Resolved Assessment and plan: Seems to improve patient has responded to Zofran. Current Visit: No (6) Hyperkalemia Status: Resolved Current Visit: Yes
--- NOTE | 2017-03-26 13:38 | Hospitalist Progress Note ---
Assessment and Plan (1) End stage renal disease Status: Acute Assessment and plan: Dialysis saturday, saturday and saturday Current Visit: No (2) Polycystic kidney disease Status: Chronic Current Visit: No (3) Anemia Status: Chronic Assessment and plan: Hgb stable Current Visit: No (4) Obesity Status: Chronic Assessment and plan: needs to lose weight Current Visit: No (5) Chest pain Status: Resolved Assessment and plan: serial troponins negative, noncardiac, normal heart cath in 2013. Cardiology has signed off Current Visit: No (6) Hypotension Status: Acute Assessment and plan: cont midodrine, normal cortisol Current Visit: Yes Hospitalist: Subjective Interval history: Blood pressures stable off pressors. move to floor, cont midodrine. cortisol adequate response. Exam - Constitutional Vitals: Period Temp Pulse Resp BP Sys/Bond Pulse Ox Last 24 Hr 97.2 F-98.0 F 58-102 10-22 78-111/42-65 87-100 Exam: Heart Rate-[RRR] Lungs-[CTAB] GI-[+bs soft, NT] Ext-[no edema] Neuro [Motor 5/5], [alert and oriented times 3] psych [normal mood and affect] General [no acute distress] Results - Labs CBC & BMP: 03/26/17 04:10 03/26/17 04:10 Lab Results: I have reviewed the past 24 hour labs Labs: Cortisol and TSH normal
[2017-03-26] MEDS ORDERED: LORazepam 2 MG/1 ML VIAL IV PRN (13:50)
[2017-03-26] MEDS ORDERED: CALCIUM ACETATE 667 MG CAPSULE ONE (13:52)
[2017-03-26] MEDS ORDERED: THIAMINE 200 MG/2 ML VIAL IV SCH (14:00)
[2017-03-26] MEDS ORDERED: FOLIC ACID 5 MG/1 ML VIAL IV SCH (14:00)
[2017-03-26] MEDS: CALCIUM ACETATE 667 MG CAPSULE PO SCH ×2 (14:02→20:15)
[2017-03-26] MEDS: DOCUSATE SODIUM 100 MG CAPSULE PO SCH (20:15)
[2017-03-26] MEDS: ERTAPENEM 500 MG in SODIUM CHLORIDE 0.9% 100 ML IV SCH (21:05)
[2017-03-27] MEDS: ONDANSETRON 4 MG/2 ML VIAL IV PRN (01:22)
[2017-03-27] MEDS: metroNIDAZOLE INJ 500 MG in PREMIX 1 EACH IV SCH ×2 (05:15→14:40)
[2017-03-27] MEDS: MIDODRINE 5 MG TABLET PO SCH ×2 (08:32→14:40)
[2017-03-27] MEDS: DOCUSATE SODIUM 100 MG CAPSULE PO SCH (08:32)
[2017-03-27] MEDS: CALCIUM ACETATE 667 MG CAPSULE PO SCH ×2 (08:32→14:40)
[2017-03-27] MEDS ORDERED: ASPIRIN EC 81 MG TABLET PO SCH (09:00)
[2017-03-27] MEDS ORDERED: CYANOCOBALAMIN 500 MCG TABLET PO SCH (09:00)
[2017-03-27 10:05] VITALS: BP 97/58
--- NOTE | 2017-03-27 10:51 | Hospitalist Progress Note ---
Assessment and Plan (1) End stage renal disease Problem details: No acute indication for [employer] at this time. Status: Chronic Assessment and plan: Continue HD mondays, wednesdays and fridays Current Visit: No (2) Polycystic kidney disease Status: Chronic Assessment and plan: now on HD Current Visit: No (3) Hypotension Status: Chronic Assessment and plan: BC and SC- negative. Blood pressure is stable. plan continue to monitor.Continue cont midodrine, normal cortisol Current Visit: No (4) Obesity Status: Chronic Assessment and plan: will get a Dietitian consult Current Visit: No (5) Anemia Status: Chronic Assessment and plan: most likely of chronic disease.H/H-stable Current Visit: No (6) Chest pain Status: Resolved Assessment and plan: Resolved, hopefully dc in am. Current Visit: No (7) Hyperkalemia Status: Acute Assessment and plan: check again after dialysis Current Visit: Yes Hospitalist: Subjective Interval history: Patient is a 61yr old AAF with a history of ESRD on HD who was transferred to the floor from the unit yesterday after she was treated for hypotension with pressors. She was seen this am during dialysis and she said she was doing ok. Exam - Constitutional Vitals: Period Temp Pulse Resp BP Sys/Bond Pulse Ox Last 24 Hr 96.3 F-98.6 F 67-78 18-20 97-105/57-63 100-100 General appearance: no acute distress, other (on HD) - Head Head exam: Present: normal inspection - Respiratory Respiratory exam: Present: clear to auscultation bilaterally - Cardiovascular Cardiovascular exam: Present: regular rate and rhythm - GI/Abdominal GI/Abdominal exam: Present: normal bowel sounds - Extremities Exam Extremities exam: Present: other (right BKA) Results - Labs CBC & BMP: 03/26/17 04:10 03/26/17 04:10 Lab Results: I have reviewed the past 24 hour labs
--- NOTE | 2017-03-27 12:10 | Dialysis Note ---
Dialysis Note - Dialysis Note The patient is seen on dialysis. She is tolerating the procedure. Her blood pressure is stable. No other changes. She is eager to go home.
--- NOTE | 2017-03-27 15:06 | Discharge Summary ---
Hospital Course - Hospital Course Hospital Course: Patient is a 61yr old AAF with a history of coronary artery disease, end-stage renal disease on hemodialysis Saturday, history of A.Lisa who was amitted for weakness and diaphoresis. She was found to be hypotensive with systolic in the 60s.She was admitted to the unit, started on IVF, Levophed.She complained of abd pain and her CT of the abdomen showed no acute process, numerous cysts in the liver. Her H/H was stable throughout. Nephrology saw in consultation and dialysis was initiated.cardiology was also consulted,They said that because she has a history of negative exercise myocardial scan from 01/2017 here in the hospital and she had normal LV function, ACS was not suspected, more so that her cardiac panel was negative.She was commenced on midodrine,her BC, stool studies were unremarkable.Cortisol had an adequate response.Her pressor was subsequently weaned off, she was transferred to the floor and this am, she was requesting to go home after her dialysis. Her blood pressure has improved and stabilized. She will be going home today. - Time spent with patient Time with patient DS: Greater than 30 minutes (Time spent>35mins) Diagnosis - Discharge Diagnosis (1) End stage renal disease Status: Chronic (2) Polycystic kidney disease Status: Chronic (3) Hypotension Status: Chronic (4) Obesity Status: Chronic (5) Anemia Status: Chronic (6) Chest pain Status: Resolved (7) Hyperkalemia Status: Acute Discharge Plan - Discharge Data Disposition: Disch To Home/Self Care Condition at Discharge: Stable Discharge Diet: advance to your usual diet, other (renal diet) - Discharge Medications Continue Promethazine HCl 25 mg PO Q6H Midodrine HCl 10 mg PO TID Docusate Sodium Cap [Colace Cap] 100 mg PO BID Pantoprazole Sodium [Protonix] 40 mg PO QAM Cyanocobalamin (Vitamin B-12) [Vitamin B-12] 2,000 mcg PO DAILY Hydrocodone/Acetaminophen [Hydrocodon-Acetaminophn 10-325] 1 tablet PO TID PRN PRN Reason: Pain Calcium Acetate [Phoslo] 667 mg PO TID Aspirin EC Tab 81 mg PO DAILY Discontinued Omeprazole [Prilosec] 20 mg PO BID - Follow Up or Referral - Forms/Instructions Exam - Constitutional Vitals: Period Temp Pulse Resp BP Sys/Bond Pulse Ox Last 24 Hr 96.3 F-98.6 F 67-78 18-20 97-105/57-63 100-100 General appearance: no acute distress - Head Head exam: Present: normal inspection - Eye Eye exam: Present: EOMI - Respiratory Respiratory exam: Present: clear to auscultation bilaterally - Cardiovascular Cardiovascular exam: Present: regular rate and rhythm - GI/Abdominal GI/Abdominal exam: Present: normal bowel sounds - Extremities Exam Extremities exam: Present: normal inspection Discharge Results Procedures and tests throughout hospitalization: Pending Orders 03/24/17 12:53 Blood Culture Stat 03/28/17 04:00 Basic Metabolic Panel IN AM Comp Blood Count Auto Diff IN AM Labs on day of discharge: Preliminary micro results at discharge 03/24/17 12:53 Blood Culture - Preliminary Blood No growth at 3 days 03/24/17 12:53 Blood Culture - Preliminary Blood No growth at 3 days DS: Provider Date of admission: 03/23/17 18:43 Primary care physician: . No PCP Attending physician on admission: Kenn Strong MD Consults: 03/23/17 19:35 Consult to Physician [CONS] Routine Comment: ESRD Consulting Provider: Clem Contreras Jr. Consulting Provider Notified: Yes Consult to Specialist Group: Nephrology When should Consulting Provider be notified: Now Person Notified: Clem Contreras Date Notified: 03/23/17 Time Notified: 21:44 03/23/17 19:36 Consult to Case Mgmt/Social Srvs [CONS] Routine Reason for Case Mgmt/Social Srvs: Rehab Consult to Occupational Therapy [CONS] Routine Reason for Occupational Therapy: Weakness Consult to Physical Therapy [CONS] Routine Reason for Physical Therapy: Weakness 03/23/17 20:11 Consult to Physician [CONS] Routine Comment: chest pain Consulting Provider: Minh Mcgrath Consult to Specialist Group: Cardiology When should Consulting Provider be notified: Now Person Notified: Brit at [facility] Date Notified: 03/24/17 Time Notified: 08:15 Consult Notification Comment: Spoke with Brit at answering service for [facility]. 03/23/17 20:49 Consult to Dietitian [CONS] Routine Reason for Dietitian: Dietary Consult 03/26/17 13:48 Consult to Physician [CONS] Routine Comment: ef 15% Consulting Provider: Feli Rogers When should Consulting Provider be notified: Now Person Notified: chip Date Notified: 03/26/17 Time Notified: 14:25 03/27/17 10:56 Consult to Dietitian [CONS] Routine Reason for Dietitian: Dietary Consult Discharging clinician: Ashley Galloway MD
== END 2017-03-27 15:50 | disposition home or self-care (01) | DRG 871 ==
LOC: EDUNIT# → EDBD → N.ED 15:38 → N.EDINP 18:43 → SUATTDRO 18:43 → N.CC 20:11 → N.5E 03-26 10:19
PROVIDERS: ADMIT Internal Medicine Infectious Disease; ATTEND Internal Medicine

== ENCOUNTER 2017-07-01 01:50 | Inpatient (IN) ==
[2017-07-01] MEDS ORDERED: ONDANSETRON 4 MG/2 ML VIAL IV STA (02:53)
[2017-07-01] MEDS ORDERED: SODIUM CHLORIDE 0.9% 500 ML IV STA (02:53)
[2017-07-01] MEDS ORDERED: fentaNYL 100 MCG/2 ML VIAL IV STA (02:54)
[2017-07-01] MEDS ORDERED: ONDANSETRON 4 MG/2 ML VIAL ONE ×2 (03:20→03:21)
[2017-07-01] MEDS ORDERED: fentaNYL 100 MCG/2 ML VIAL ONE (03:21)
[2017-07-01 03:26] LABS: Basophils % 0.2 % (0.0-0.8); Eosinophils # 0.3 10*3/uL (0.0-0.87); Eosinophils % 3.7 % (0.00-10.9); Hematocrit 28.2 VOL% (35.7-47.0); Hemoglobin 9.7 GM/DL (12.0-16.0); Immature Granulocytes % 0.3 %; Immature Granulocytes Absolute 0.03 #; Lymphocytes % 11.6 % (21.3-54.2); Mean Corpuscular HGB Conc 34.4 GM/DL (32-36); Mean Corpuscular Hemoglobin 31 PG (27-34); Mean Platelet Volume 10.4 FL (9.6-12.0); Monocytes # 0.7 10*3/uL (0.11-0.8); Neutrophils # 6.6 10*3/uL (1.4-7.4); Neutrophils % 76.2 % (38.7-73.9); Platelet Count 293 T/CUMM (130-400); Red Blood Count 3.17 MC/CUMM (3.8-5.5); Red Cell Distribution Width 15.9 % (9.3-17.3); White Blood Count 8.6 T/CUMM (4-12)
[2017-07-01 03:45] LABS: Bilirubin,Total 0.4 MG/DL (0.2-1.0); Calcium 8.1 MG/DL (8.5-10.1); Osmolality,Calculated 283.4 MOS/KG (273-304); Total Protein 6.6 G/DL (6.4-8.3)
--- NOTE | 2017-07-01 04:43 | Emergency Department Note ---
IMartinez Brittany, am scribing for, and in the presence of, Keegan Trejo MD 02:48. Maya Reese Kevin Lee, MD, personally performed the services described in this documentation, ascribed by Elizabeth Henriquez in my presence, and it is both accurate and complete 443 . Arrival - Arrival Chief Complaint: Abdominal / Flank Pain Stated Complaint: stomach pain ED Nursing Triage Note: pt in triage w c/o stomach pain. pt states she has diverticulitis. pt reports nausea, but denies vomitting Mode of Arrival: Ambulatory Limitations: No Limitations Source: Patient - History of Present Illness HPI Narrative: This is 61 y/o female,who presents to the ED with c/o abdominal pain which started. She has a known Hx of diverticulitis. She localizes the pain to the upper left quadrant. She reports she has had nauseas, but denies any vomiting. Pt has no other complaints/pain in the ED at this time. Pt has a PMHx of a-fib, migraines, thyroid disorder, renal failure, renal problems, dialysis M-W-, diverticulitis, pancreatitis, GI problems, arthritis, anemia, sickle cell disease, and ovarian cysts. Pt has had a renal surgery, abdominal surgery, cholecystectomy, gastric bypass, hysterectomy, gynecological surgery,thyroid surgery, and bilateral nephrectomy. Pt has a family medical Hx of heart disease , HTN, and diabetes. Pt is a former smoker. Consistency: constant Severity: moderate, similar to previous episodes Allergies/Adverse Reactions: Allergies Allergy/AdvReac Type Severity Reaction Status Date / Time Penicillins Allergy Intermediate ANAPHYLAXIS Verified 07/01/17 01:58 Sulfa (Sulfonamide Allergy Intermediate ITCHING Verified 07/01/17 01:58 Antibiotics) codeine AdvReac Intermediate Abdominal Verified 07/01/17 01:58 Pain phenytoin [From Dilantin] AdvReac Intermediate Migraine Verified 07/01/17 01:58 propoxyphene [From Darvon] AdvReac Intermediate Migraine Verified 07/01/17 01:58 Home Medications: Home Medications Medication Instructions Recorded Confirmed Type Promethazine HCl 25 mg PO Q6H 02/18/15 07/01/17 History Midodrine HCl 10 mg PO TID 02/20/16 07/01/17 History Cyanocobalamin (Vitamin B-12) 2,000 mcg PO DAILY 07/20/16 07/01/17 History [Vitamin B-12] Docusate Sodium Cap [Colace Cap] 100 mg PO BID 07/20/16 07/01/17 History Pantoprazole Sodium [Protonix] 40 mg PO QAM 07/20/16 07/01/17 History Aspirin EC Tab 81 mg PO DAILY 11/28/16 07/01/17 History Hydrocodone/Acetaminophen 1 tablet PO TID PRN 11/28/16 07/01/17 History [Hydrocodon-Acetaminophn 10-325] Review of System - Review of System 12 point system: reviewed and no additional remarkable complaints except as stated - Review of System Gastrointestinal: Present: abdominal pain, nausea. Absent: vomiting Medical,Surgical,& Family Hx - Medical History Cardio: History of: Cardiac Dysrhythmia (afib and SVT ), Valvular Heart Disease , Cardiovascular Problems No history of: Hypertension Neurology: History of: Migraine No history of: Seizures, TIA HEENT: History of: Eye Problem (GLASSES), HEENT Problems (allergies) Endocrine: History of: Thyroid Disorder (ELEVATED CALCIUM) Renal: History of: Dialysis (m-w-), Renal Failure, Renal Problems (polycystic kidney disease) Gastrointestinal: History of: Diverticulitis/ Diverticulosis, Liver Problems ( polycystic disease), Pancreatitis, GI Problems Musculoskeletal: History of: Musculoskeletal Problems (arthritis) Hematology: History of: Anemia (Anemia of chronic disease), Sickle Cell Disease (Sickle cell trait) No history of: Blood Transfusion Reaction Reproductive: History of: Abnormal Pap Smear, Ovarian Cysts Other: No history of: Anesthesia Reactions - Surgical History Cardiac Surgeries: Comment Only: Cardiac Catheterization (hx. ablation for svt.) Thoracic Surgeries: Surgical HX of;: Kidney (Renal Surgery) (Bilateral nephrectomy), Nephrectomy (Bilateral nephrectomy) Patient denies;: Organ Transplant, Lobectomy Neurologic Surgeries: Patient denies: Neurologic Surgery HEENT Surgeries: Surgical HX of: Thyroid Surgery (07/12/15, parathyroid removal) Patient denies: Eye Surgery, Tonsilectomy & Adenoidectomy Abdominal Surgeries: Surgical HX of: Abdominal Surgery, Cholecystectomy, Gastric Bypass Surgery Reproductive Surgeries: Surgical HX of;: Gynecologic Surgery, Hysterectomy ( With oophorectomy) - Family History Family History: Reports;: Family Diabetes, Family Heart Disease (PARENTS 2 BROTHERS), Family Hypertension (PARENTS SIBLINGS) - Social History Smoking Status: Former smoker Frequency of Alcohol Use: None Type of Drug Use: None Exam Vital Signs: Vital Signs Temperature 98.9 F 07/01/17 01:53 Pulse Rate 105 H 07/01/17 01:53 Respiratory Rate 12 07/01/17 01:53 Blood Pressure 88/54 07/01/17 01:53 O2 Sat by Pulse Oximetry 99 07/01/17 01:53 - General General appearance: alert, in no apparent distress - Head Head exam: Present: normal inspection - Eye Eye exam: Present: PERRL, EOMI. Absent: nystagmus - ENT ENT exam: Present: mucous membranes moist - Neck Neck exam: Present: full ROM, trachea midline. Absent: tenderness - Chest Chest inspection: Present: symmetric chest wall rise. Absent: tenderness - Respiratory Respiratory exam: Present: normal lung sounds bilaterally. Absent: prolonged expiratory phase - Cardiovascular Cardiovascular exam: Present: regular rate, normal rhythm, normal heart sounds. Absent: murmur, rubs, gallop, clicks, JVD - Abdominal Exam Abdominal exam: Present: soft, tenderness (LUQ tendnerness), normal bowel sounds. Absent: distention, guarding, rebound, rigidity - Rectal Exam Rectal exam: Present: deferred - Extremities Exam Extremities exam: Present: full ROM, normal capillary refill. Absent: tenderness - Back Exam Back exam: Present: full ROM. Absent: tenderness, muscle spasm, rashes - Neurological Exam Neurological exam: Present: alert, oriented X3, CN II-XII intact. Absent: motor sensory deficit - Psychiatric Psychiatric exam: Present: normal affect, normal mood. Absent: depressed, agitated, anxious, flat affect, manic - Skin Skin exam: Present: warm, dry, intact, normal color. Absent: rash, cyanosis, diaphoresis Course Course Narrative: CT concerning for Liver mets by Vrad read. Will admit for possible dedicated liver imaging and dialysis today along with hemeonc consult if needed. Results - Labs CBC & BMP: 07/01/17 02:30 07/01/17 02:30 Lab Results: I have reviewed the patients labs - Diagnostic Findings Procedure: CT Abdomen and Pelvis: report reviewed by me (CT abdomen and pelvis without IV Contrast: 1. There are numerous hypodensities in the liver, with complete replacement of the normal parenchyma of the left lobe of the liver by the hypodensities, suspicous for liver metastases. 2. Ther is wall thickening of the distal stomach and proximal duodenum, which could be an artifact due to the incomplet distention, inflammation/infection, or tumor ivasion. 3. There is a small amout of pneumobilia. 4. There is more than usual amout of stool in the colon. 5. There is a 3.7x 1.5 x 2.5 cm nodular density in the anterior right pericardial fat, suggesting a lymph node or tumor invasion. ) Disposition Clinical Impression: Abdominal pain, ESRD (end stage renal disease) Case discussed with: patient Disposition: Still a Patient Condition: Stable
[2017-07-01] MEDS ORDERED: DOCUSATE SODIUM 100 MG CAPSULE PO PRN (05:49)
[2017-07-01] MEDS ORDERED: ONDANSETRON 4 MG/2 ML VIAL IV PRN (05:49)
--- NOTE | 2017-07-01 06:00 | Hospitalist History & Physical ---
Assessment and Plan - Time spent with patient Time spent with patient: Less than 30 minutes (1) Epigastric pain Status: Acute Assessment and plan: Epigastric pain that started Saturday Pending final read of CT report of abdomen/pelvis Pending lipase, bilirubin, H pylori, GGT LFTs negative Pain and nausea medicines as needed Consult oncology Current Visit: Yes (2) Constipation Status: Acute Assessment and plan: We will give docusate sodium p.o. twice daily for results Current Visit: Yes (3) Anemia Status: Chronic Assessment and plan: Slight anemia compared to patient's baseline We will redraw H&H Current Visit: No (4) End stage renal disease Status: Chronic Assessment and plan: We will consult nephrology for dialysis Patient schedule is Saturday Current Visit: No (5) Hx of hypotension Status: Acute Current Visit: Yes History of Present Illness Chief complaint: epigastric pain History of present illness: Called to the ER for Ms. Juanjose Scott who is a 61 year old female that presents to the emergency room tonight complaining of epigastric pain that started Saturday. Patient describes pain as throbbing with no alleviating or aggravating factors. She admits to some nausea and dry heaving but denies fevers, diarrhea, shortness of breath, chest pain, and coughing. She has a history of diverticulitis and liver cyst. A CT scan of her abdomen was performed which showed numerous hypodensities in the liver, thickening of the distal stomach and proximal duodenum, small amount of pneumobilia, and a nodular density in the anterior right pericardial fat. A previous CT scan of her abdomen in March 2017 showed no acute intra-abdominal pelvic pathology but with chronic liver cyst, interstitial scarring in the lungs, surgical absence of the kidneys, and prior [id number]-Y. Patient's blood work revealed slight anemia compared to previous labs. Patient has a history of anemia requiring multiple blood transfusions. Additional lab work included sodium of 133, BUN 59, creatinine 12.40. Patient is a chronic kidney disease but BUN and creatinine are elevated compared to patient's baseline. Additional history for patient includes hypotension where she has been admitted and started on Midodrine. Patient felt it was due to the multiple grafts in her arms for dialysis. On exam blood pressure in right arm was 80/40. Blood pressure cuff was made to left leg with a reading of 120/60. Other history includes migraines, SVT with surgical ablation, cholecystectomy, bilateral nephrectomies due to polycystic kidney disease, ovarian cyst with oophorectomy, hysterectomy, arthritis, sickle cell trait, parathyroidectomy due to hypercalcemia, and herniated disc in the L4 and L5. Home Medications Medication Instructions Recorded Confirmed Type Promethazine HCl 25 mg PO Q6H 02/18/15 07/01/17 History Midodrine HCl 10 mg PO TID 02/20/16 07/01/17 History Cyanocobalamin (Vitamin B-12) 2,000 mcg PO DAILY 07/20/16 07/01/17 History [Vitamin B-12] Docusate Sodium Cap [Colace Cap] 100 mg PO BID 07/20/16 07/01/17 History Pantoprazole Sodium [Protonix] 40 mg PO QAM 07/20/16 07/01/17 History Aspirin EC Tab 81 mg PO DAILY 11/28/16 07/01/17 History Hydrocodone/Acetaminophen 1 tablet PO TID PRN 11/28/16 07/01/17 History [Hydrocodon-Acetaminophn 10-325] Allergies Allergy/AdvReac Type Severity Reaction Status Date / Time Penicillins Allergy Intermediate ANAPHYLAXIS Verified 07/01/17 01:58 Sulfa (Sulfonamide Allergy Intermediate ITCHING Verified 07/01/17 01:58 Antibiotics) codeine AdvReac Intermediate Abdominal Verified 07/01/17 01:58 Pain phenytoin [From Dilantin] AdvReac Intermediate Migraine Verified 07/01/17 01:58 propoxyphene [From Darvon] AdvReac Intermediate Migraine Verified 07/01/17 01:58 Medical,Surgical,& Family Hx - Medical History Cardio: History of: Cardiac Dysrhythmia (afib and SVT ), Valvular Heart Disease , Cardiovascular Problems No history of: Hypertension Neurology: History of: Migraine No history of: Seizures, TIA HEENT: History of: Eye Problem (GLASSES), HEENT Problems (allergies) Endocrine: History of: Thyroid Disorder (ELEVATED CALCIUM) Renal: History of: Dialysis (m-w-f), Renal Failure, Renal Problems (polycystic kidney disease) Gastrointestinal: History of: Diverticulitis/ Diverticulosis, Liver Problems ( polycystic disease), Pancreatitis, GI Problems Musculoskeletal: History of: Musculoskeletal Problems (arthritis) Hematology: History of: Anemia (Anemia of chronic disease), Sickle Cell Disease (Sickle cell trait) No history of: Blood Transfusion Reaction Reproductive: History of: Abnormal Pap Smear, Ovarian Cysts Other: No history of: Anesthesia Reactions - Surgical History Cardiac Surgeries: Comment Only: Cardiac Catheterization (hx. ablation for svt.) Thoracic Surgeries: Surgical HX of;: Kidney (Renal Surgery) (Bilateral nephrectomy), Nephrectomy (Bilateral nephrectomy) Patient denies;: Organ Transplant, Lobectomy Neurologic Surgeries: Patient denies: Neurologic Surgery HEENT Surgeries: Surgical HX of: Thyroid Surgery (07/12/15, parathyroid removal) Patient denies: Eye Surgery, Tonsilectomy & Adenoidectomy Abdominal Surgeries: Surgical HX of: Abdominal Surgery, Cholecystectomy, Gastric Bypass Surgery Reproductive Surgeries: Surgical HX of;: Gynecologic Surgery (oophorectomy d\t ovarian cysts), Hysterectomy (With oophorectomy) - Family History Family History: Reports;: Family Diabetes, Family Heart Disease (PARENTS 2 BROTHERS), Family Hypertension (PARENTS SIBLINGS), Additional Family History ( polycystic kidney disease; multiple family members) - Social History Smoking Status: Former smoker Have you smoked in the last 12 months: No Frequency of Alcohol Use: None Type of Drug Use: None Marital Status: Lives With:: Spouse Functional capacity: independent ambulation - Constitutional Constitutional: Absent: anorexia, chills, fatigue, weight gain, weight loss - EENT Nose, mouth and throat: Absent: dysphagia - Respiratory Respiratory: Absent: cough, dyspnea, hemoptysis, dyspnea on exertion - Gastrointestinal Gastrointestinal: Present: constipation, nausea, other (epigastric pain). Absent: abdominal pain, diarrhea, dyspepsia, hematemesis, loose stools, vomiting , jaundice Exam - Constitutional Vitals: Period Temp Pulse Resp BP Sys/Bond Pulse Ox Last 24 Hr 98.9 F-98.9 F 105-105 12-12 88-88/54-54 99 General appearance: normal weight, no acute distress - Head Head exam: Present: normal inspection, normocephalic - Eye Eye exam: Present: EOMI Pupils: Present: DENISHA, normal accommodation - ENT ENT exam: Present: normal exam - Neck Neck exam: Present: normal inspection - Respiratory Respiratory exam: Present: clear to auscultation bilaterally (Respirations even and nonlabored. Symmetrical rise and fall of chest.). Absent: accessory muscle use - Cardiovascular Cardiovascular exam: Present: regular rate and rhythm. Absent: diastolic murmur , systolic murmur - GI/Abdominal GI/Abdominal exam: Present: hypoactive bowel sounds, tenderness (2 epigastric area), soft. Absent: distended, firm - Extremities Exam Extremities exam: Present: normal inspection, normal capillary refill, other ( Dialysis fistula to left upper arm with palpable thrill) - Back Exam Back exam: Present: normal inspection - Neurological Exam Neurological exam: Present: alert, oriented X3 (Makes good eye contact. Able to answer questions appropriately.) - Psychiatric Psychiatric exam: Present: normal affect, normal mood - Skin Skin exam: Present: normal color, warm, dry, intact Results - Labs CBC & BMP: 07/01/17 02:30 07/01/17 02:30 Lab Results: I have reviewed the past 24 hour labs - Diagnostic Findings Procedure: CT Abdomen and Pelvis: report reviewed by me (Numerous hypodensities in liver; suspicious for liver mets; pneumobilia. Constipation. Nodular density in the right pericardial fat; thickening distal stomach and duodenum)
[2017-07-01] MEDS: HYDROmorphone 2 MG/1 ML VIAL IV PRN ×3 (06:33→21:48)
--- NOTE | 2017-07-01 07:08 | CT Report ---
History: Left upper quadrant abdominal pain. History of previous surgery Date: 07/01/2017 Study: CT abdomen and pelvis without contrast Comparison exam: Numerous previous remote CT abdomen studies, including the most recent exam from March 23, 2017 and a remote exam from January 26, 2012 The study was also reviewed by Al. Technique: Spiral CT sections were obtained from the lung bases to the pubic symphysis without IV or oral contrast CT abdomen: There is some platelike subsegmental atelectasis or scarring in the lower lobes, right more than left. There is no evidence of pneumoperitoneum. There is a 10.5 mm short axis diameter nodular density in the right cardiophrenic angle fat suggesting mild nonspecific lymphadenopathy. Surgical sutures from previous gastric bypass surgery noted. The spleen, pancreas, adrenal glands are unremarkable. There has been previous bilateral nephrectomy. There is mild pneumobilia suggesting incompetence of the sphincter of Lui. Numerous rounded low densities are scattered throughout the liver, more so on the left lobe. Chronic hepatic cyst formation is favored, compared to previous studies, though evaluation is limited without IV contrast. The gallbladder is surgically absent. There is no aortic aneurysm. There is incomplete distention of the distal stomach, limiting evaluation for wall thickening. There is tiny periumbilical hernia containing only fat. There is diverticulosis without tara diverticulitis. CT pelvis: No pelvic mass or abnormal pelvic fluid collection is seen. Phleboliths noted in the pelvis. The uterus is surgically absent. Impression: Nonspecific mild right cardiophrenic angle lymphadenopathy Numerous rounded low densities are scattered throughout the liver, more so involving the left lobe. This is a chronic finding dating back to 2011; these are predominantly felt to represent hepatic cyst formation. Small underlying solid mass in the left lobe of the liver would be difficult to exclude given the extensive parenchymal replacement in this lobe, more so involving the lateral segment. Consider further evaluation with hepatic sonography No definite acute abdominal process otherwise. Diverticulosis without tara diverticulitis Mild platelike atelectasis or scarring in the lower lobes Previous cholecystectomy, bilateral nephrectomy, and hysterectomy The CT exam was performed using one or more of the following dose reduction techniques: Automated exposure control, adjustment of the mA and/or kV according to patient size, or use of iterative reconstruction technique. PROCEDURE INTERPRETED AT [facility] DEPARTMENT OF RADIOLOGY Final Report Signed by: Dr. Ambar Barbosa
--- NOTE | 2017-07-01 08:40 | Oncology Progress Note ---
Oncology Subjective PN Interval history: This lady was admitted with abdominal pain and has a CT scan that demonstrates what appears to be metastatic disease to the liver. She has undergone Katherin-en- Y in the past as gastric bypass for weight loss. She did not have any previous GI malignancy. She has undergone total abdominal hysterectomy with bilateral salpingo-oophorectomy. She is on hemodialysis for end-stage renal disease. Workup is in progress. I will dictate a consultation note after we have further information. She needs a liver biopsy. Interventional radiology consulted. Patient: Hortensia Franklin MR#: [id number] : 1955 Age/Sex: 61 / F ADM Date: 07/01/17 Loc: N.4E / 418-1 ADM Status: ADM IN Attending Dr: Ashley Galloway MD Ordering Physician: Keegan Trejo Date of Service: 07/01/17 Procedure(s): CT abdomen pelvis wo con Accession Number(s): [id number] cc: Keegan Trejo MD~ History: Left upper quadrant abdominal pain. History of previous surgery Date: 07/01/2017 Study: CT abdomen and pelvis without contrast Comparison exam: Numerous previous remote CT abdomen studies, including the most recent exam from March 23, 2017 and a remote exam from January 26, 2012 The study was also reviewed by Al. Technique: Spiral CT sections were obtained from the lung bases to the pubic symphysis without IV or oral contrast CT abdomen: There is some platelike subsegmental atelectasis or scarring in the lower lobes, right more than left. There is no evidence of pneumoperitoneum. There is a 10.5 mm short axis diameter nodular density in the right cardiophrenic angle fat suggesting mild nonspecific lymphadenopathy. Surgical sutures from previous gastric bypass surgery noted. The spleen, pancreas, adrenal glands are unremarkable. There has been previous bilateral nephrectomy. There is mild pneumobilia suggesting incompetence of the sphincter of Lui. Numerous rounded low densities are scattered throughout the liver, more so on the left lobe. Chronic hepatic cyst formation is favored, compared to previous studies, though evaluation is limited without IV contrast. The gallbladder is surgically absent. There is no aortic aneurysm. There is incomplete distention of the distal stomach, limiting evaluation for wall thickening. There is tiny periumbilical hernia containing only fat. There is diverticulosis without tara diverticulitis. CT pelvis: No pelvic mass or abnormal pelvic fluid collection is seen. Phleboliths noted in the pelvis. The uterus is surgically absent. Impression: Nonspecific mild right cardiophrenic angle lymphadenopathy Numerous rounded low densities are scattered throughout the liver, more so involving the left lobe. This is a chronic finding dating back to 2011; these are predominantly felt to represent hepatic cyst formation. Small underlying solid mass in the left lobe of the liver would be difficult to exclude given the extensive parenchymal replacement in this lobe, more so involving the lateral segment. Consider further evaluation with hepatic sonography No definite acute abdominal process otherwise. Diverticulosis without tara diverticulitis Mild platelike atelectasis or scarring in the lower lobes Previous cholecystectomy, bilateral nephrectomy, and hysterectomy The CT exam was performed using one or more of the following dose reduction techniques: Automated exposure control, adjustment of the mA and/or kV according to patient size, or use of iterative reconstruction technique. PROCEDURE INTERPRETED AT [facility] DEPARTMENT OF RADIOLOGY Final Report Signed by: Dr. Ambar Barbosa Dictated By: Ambar Barbosa MD 07/01/17 0658 Signed By: Ambar Barbosa MD 07/01/17 0705 Her past medical history is positive for multiple operations including a Katherin-en -Y for gastric bypass. It was not done for pancreatitis or any other GI disorder or malignancy. She has had a total abdominal hysterectomy with BSO. Physical examination: General: The patient appears surprisingly well-developed, well-nourished and in no acute distress. Eyes: Normal lids and conjunctivae. ENT: Her hearing is normal. Her oral mucosa and pharynx are normal. Her teeth are in fair repair. The lungs: Breath sounds are normal throughout without rubs, rales or rhonchi. There is symmetrical unlabored chest motion with respiration. Cardiovascular: Her heart rhythm is regular without murmur, gallop or rub. There is no jugular venous distention, clubbing or cyanosis. Abdomen: She is tender in the upper portion. I palpate no abdominal masses organomegaly and no ascites. Musculoskeletal: There is no focal muscle atrophy or bone or joint deformity. Neurologic: Cranial nerves II through XII are intact. There are no focal neurologic deficits. Nodes: There is no submandibular, cervical, supraclavicular or axillary adenopathy. Consult placed to interventional radiology. Also I have ordered tumor markers including a CEA, CA-19-9, alpha-fetoprotein level and CA 125. Exam - Constitutional Vitals: Period Temp Pulse Resp BP Sys/Bond Pulse Ox Last 24 Hr 98.9 F-98.9 F 80-105 12-20 86-121/52-62 96-100 Results - Labs CBC & BMP: 07/01/17 02:30 07/01/17 02:30
[2017-07-01 08:58] LABS: Hematocrit 30.1 VOL% (35.7-47.0); Hemoglobin 10.3 GM/DL (12.0-16.0)
--- NOTE | 2017-07-01 09:02 | EKG Report ---
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
[2017-07-01] MEDS: MIDODRINE 5 MG TABLET PO SCH ×3 (09:13→21:02)
[2017-07-01] MEDS: DOCUSATE SODIUM 100 MG CAPSULE PO SCH ×2 (09:13→21:02)
[2017-07-01] MEDS: ASPIRIN EC 81 MG TABLET PO SCH (09:13)
[2017-07-01] MEDS: PANTOPRAZOLE 40 MG TABLET PO SCH (09:13)
[2017-07-01 09:39] LABS: AFP Tumor 1.7 NG/ML (0-8); Carcinoembryonic Antigen 1.1 NG/ML (0.0-5.0)
[2017-07-01 10:07] LABS: Cancer Antigen 19-9 35.6 U/ML (0-37)
[2017-07-01] MEDS: ENOXAPARIN 30 MG/0.3 ML SYRINGE SUBCUT SCH (11:25)
--- NOTE | 2017-07-01 12:31 | Ultrasound Report ---
Exam: US liver Date:07/01/2017 6:30 AM Comparison:None Indication: Liver cysts. Abnormal CT scan Real-time ultrasound images are captured and archived. The liver is normal in size. There are innumerable cysts scattered throughout the liver, most numerous in the lateral segment of the left lobe the liver. There is no focal solid hepatic mass. There is hepatopedal flow in the portal vein. The largest hepatic cyst measures 2.7 cm in the lateral segment of the left lobe of the liver. Most of the cysts are simple or have some partial thin internal septation. There is no abnormal biliary dilatation. The common bile duct measures 4.5 mm diameter. The right kidney is surgically absent. The gallbladder is surgically absent. The pancreas appears normal Impression: Numerous benign-appearing cysts, simple or only minimally complex, are scattered throughout the liver. No focal solid hepatic mass is seen. Previous cholecystectomy and right nephrectomy PROCEDURE INTERPRETED AT [facility] DEPARTMENT OF RADIOLOGY Final Report Signed by: Dr. Ambar Barbosa
--- NOTE | 2017-07-01 13:01 | Nephrology Consult Note ---
History of Present Illness Chief complaint: Abdominal pain and nausea in a patient on dialysis History of present illness: Ms. Juanjose Scott is a 61 year old female who dialyzes on a Saturday basis in [facility]. The patient's last dialysis was this past Saturday. The patient presented to the emergency room this morning with abdominal pain. She states she was visiting her grandbaby over the weekend when she began to have some abdominal pain and nausea. She did not have any vomiting. She has not taken in very much. The patient states she does not think it is associated with p.o. intake. The patient has a history of pancreatitis and had to have some kind of surgical procedure done to release a muscle that was stricturing her pancreatic duct. Since that time the patient has done well from this standpoint. The patient has also had problems with enlarged cysts and associated with abdominal pain and went to [place] to have a special cyst drainage procedure done. She is been doing quite well from that standpoint to for some time. The patient's pain today is located on the left upper quadrant region just underneath her rib cage. A CT scan of the abdomen showed cystic changes to the liver especially the left lobe. The patient also had a hepatic ultrasound done that confirmed cysts some of which were complex. The patient states she had some fever about 2 days prior to her admission. The patient has a normal white count however she does have a left shift with about 78% neutrophils. ROS: Head - denies headaches ENT - denies sore throat Lymphatics - denies lymphadenopathy Hematology - denies bleeding problems Heart - denies chest pain Lungs - denies shortness of breath Abdomen -positive abdominal pain Musculoskeletal -positive arthritis, she is followed by Dr. Levy with total pain care Skin - denies rash Neurology - denies stroke General -positive fever PE: General: in no acute distress Eyes: Pupils are round and reactive, conjunctivae are clear ENT: Nose is clear, O/P is benign Neck: Supple, no thyromegaly Lymphatics: No cervical, supraclavicular or axillary adenopathy Heart: Regular rate and rhythm, no edema Lungs: Clear to auscultation anteriorly, chest expansion symmetric Abdomen: Soft, normoactive bowel sounds, no hepatomegaly, she has some mild to moderate tenderness to palpation in her left upper quadrant Musculoskeletal: No joint erythema or effusions or joint asymmetry Skin: Normal turgor, normal hydration, no rash Neuro/Psych: Alert and cooperative with fair insight Home Medications Medication Instructions Recorded Confirmed Type Promethazine HCl 25 mg PO Q6H 02/18/15 07/01/17 History Midodrine HCl 10 mg PO TID 02/20/16 07/01/17 History Cyanocobalamin (Vitamin B-12) 2,000 mcg PO DAILY 07/20/16 07/01/17 History [Vitamin B-12] Docusate Sodium Cap [Colace Cap] 100 mg PO BID 07/20/16 07/01/17 History Pantoprazole Sodium [Protonix] 40 mg PO QAM 07/20/16 07/01/17 History Aspirin EC Tab 81 mg PO DAILY 11/28/16 07/01/17 History Hydrocodone/Acetaminophen 1 tablet PO TID PRN 11/28/16 07/01/17 History [Hydrocodon-Acetaminophn 10-325] Allergies Allergy/AdvReac Type Severity Reaction Status Date / Time Penicillins Allergy Intermediate ANAPHYLAXIS Verified 07/01/17 01:58 Sulfa (Sulfonamide Allergy Intermediate ITCHING Verified 07/01/17 01:58 Antibiotics) codeine AdvReac Intermediate Abdominal Verified 07/01/17 01:58 Pain phenytoin [From Dilantin] AdvReac Intermediate Migraine Verified 07/01/17 01:58 propoxyphene [From Darvon] AdvReac Intermediate Migraine Verified 07/01/17 01:58 Medical,Surgical,& Family Hx - Medical History Cardio: History of: Cardiac Dysrhythmia (afib and SVT ), Valvular Heart Disease , Cardiovascular Problems No history of: Hypertension Neurology: History of: Migraine No history of: Seizures, TIA HEENT: History of: Eye Problem (GLASSES), HEENT Problems (allergies) Endocrine: History of: Thyroid Disorder (ELEVATED CALCIUM) Respiratory: History of: Bronchitis Renal: History of: Dialysis (-w-), Renal Failure, Renal Problems (polycystic kidney disease) Gastrointestinal: History of: Diverticulitis/ Diverticulosis, Liver Problems ( polycystic disease), Pancreatitis, GI Problems Musculoskeletal: History of: Musculoskeletal Problems (arthritis) Hematology: History of: Anemia (Anemia of chronic disease), Sickle Cell Disease (Sickle cell trait) No history of: Blood Transfusion Reaction Reproductive: History of: Abnormal Pap Smear, Ovarian Cysts Other: No history of: Anesthesia Reactions - Surgical History Cardiac Surgeries: Comment Only: Cardiac Catheterization (hx. ablation for svt.) Thoracic Surgeries: Surgical HX of;: Kidney (Renal Surgery) (Bilateral nephrectomy), Nephrectomy (Bilateral nephrectomy) Patient denies;: Organ Transplant, Lobectomy Neurologic Surgeries: Patient denies: Neurologic Surgery HEENT Surgeries: Surgical HX of: Thyroid Surgery (07/12/15, parathyroid removal) Patient denies: Eye Surgery, Tonsilectomy & Adenoidectomy Abdominal Surgeries: Surgical HX of: Abdominal Surgery, Cholecystectomy, Gastric Bypass Surgery, Hernia Repair Reproductive Surgeries: Surgical HX of;: Gynecologic Surgery (oophorectomy d\t ovarian cysts), Hysterectomy (With oophorectomy) Orthopedic Surgeries: Surgical HX of;: Total Knee Replacement - Family History Family History: Reports;: Family Diabetes, Family Heart Disease (PARENTS 2 BROTHERS), Family Hypertension (PARENTS SIBLINGS), Additional Family History ( polycystic kidney disease; multiple family members) Denies;: Family Cancer - Social History Smoking Status: Former smoker Frequency of Alcohol Use: None Type of Drug Use: None Exam - Vital Signs Vital signs: Period Temp Pulse Resp BP Sys/Bond Pulse Ox Last 24 Hr 98.2 F-98.9 F 79-105 12-20 86-130/52-71 96-100 Results - Labs CBC & BMP: 07/01/17 08:50 07/01/17 02:30 Assessment and Plan (1) Abdominal pain Status: Acute Assessment and plan: This patient has a history of polycystic liver disease she has had problems with enlarging cyst and abdominal pain in the past. Her CT scan seems to reveal stable cyst disease, however she states she had a fever a few days ago I would wonder if she may have a cyst infection or some bleeding into 1 of her cysts. If her pain does not improve over the next few days we may want to give her trial of antibiotics. Current Visit: Yes (2) ESRD (end stage renal disease) Status: Acute Assessment and plan: We will plan on hemodialysis today Current Visit: Yes (3) Chronic pain Status: Acute Current Visit: No (4) Polycystic liver disease Status: Acute Current Visit: No (5) Hx of hypotension Status: Acute Current Visit: Yes
--- NOTE | 2017-07-01 13:56 | Event Note ---
Asked to see patient for possible liver biopsy. Patient is well known to me from multiple prior interactions regarding dialysis access. She had bilateral nephrectomies performed years ago for polycystic kidney disease. Since 2012, she has also had numerous CT scans of the abdomen and pelvis that show cystic changes throughout the liver. There is nothing particularly different about most recent CT when compared to previous examinations, although the report suggested that "a mass cannot be excluded" on the report. Additionally, an ultrasound performed this morning failed to demonstrate a mass for biopsy. Tumor markers are negative. At this point, no lesion is present warranting biopsy, and my belief is an underlying neoplastic process is unlikely. Please call with questions. I spent 10 minutes [id number] discussion with the patient and her regarding this.
--- NOTE | 2017-07-01 14:00 | Nephrology Progress Note ---
Nephrology - PN: Subj Interval history: Patient was seen on hemodialysis she is tolerating this well will continue her treatment unchanged. Exam (PN)-Nephrology - Vital Signs Vital signs: Period Temp Pulse Resp BP Sys/Bond Pulse Ox Last 24 Hr 98.2 F-98.9 F 79-105 12-20 86-130/52-71 96-100 - Lab 07/01/17 08:50 07/01/17 02:30 Most recent lab results Calcium 8.1 MG/DL (8.5-10.1) L 07/01/17 02:30 Assessment and Plan (1) Abdominal pain Status: Acute Assessment and plan: This patient has a history of polycystic liver disease she has had problems with enlarging cyst and abdominal pain in the past. Her CT scan seems to reveal stable cyst disease, however she states she had a fever a few days ago I would wonder if she may have a cyst infection or some bleeding into 1 of her cysts. If her pain does not improve over the next few days we may want to give her trial of antibiotics. Current Visit: Yes (2) ESRD (end stage renal disease) Status: Acute Assessment and plan: We will plan on hemodialysis today Current Visit: Yes (3) Chronic pain Status: Acute Current Visit: No (4) Polycystic liver disease Status: Acute Current Visit: No (5) Hx of hypotension Status: Acute Current Visit: Yes
[2017-07-02] MEDS: HYDROmorphone 2 MG/1 ML VIAL IV PRN ×3 (00:57→19:53)
--- NOTE | 2017-07-02 07:16 | Nephrology Progress Note ---
Nephrology - PN: Subj Interval history: Patient continues to complain of left upper quadrant pain. She states the pain is no better. Review of systems pulmonary she denies shortness of breath, GI- patient states her abdominal pain started slowly Saturday and then intensified through the day, the pain seemed to start on the left side and radiates medially to her ribs Physical exam general patient is in no acute distress Assessment/plan 1. Abdominal pain-CT of the abdomen as well as liver ultrasound does not show an explanation for her pain, I am having difficulty knowing whether this is a GI source of her pain versus some musculoskeletal type pain are considered starting her on a scheduled dose of nonsteroidals this morning however I am going to check her stool for blood prior to starting this. Patient wondered about a course of antibiotics to see if that would help. I told her it did not look like an infectious process furthermore review of her CT scans does not show any liver cyst in the area of her pain. 2. End-stage renal disease-we will continue hemodialysis support 3. Chronic pain Exam (PN)-Nephrology - Vital Signs Vital signs: Period Temp Pulse Resp BP Sys/Bond Pulse Ox Last 24 Hr 97.5 F-98.6 F 79-101 18-20 87-135/44-75 96-100 - Lab 07/01/17 08:50 07/01/17 02:30 Most recent lab results Calcium 8.1 MG/DL (8.5-10.1) L 07/01/17 02:30 Assessment and Plan (1) Abdominal pain Status: Acute Assessment and plan: This patient has a history of polycystic liver disease she has had problems with enlarging cyst and abdominal pain in the past. Her CT scan seems to reveal stable cyst disease, however she states she had a fever a few days ago I would wonder if she may have a cyst infection or some bleeding into 1 of her cysts. If her pain does not improve over the next few days we may want to give her trial of antibiotics. Current Visit: Yes (2) ESRD (end stage renal disease) Status: Acute Assessment and plan: We will plan on hemodialysis today Current Visit: Yes (3) Chronic pain Status: Acute Current Visit: No (4) Polycystic liver disease Status: Acute Current Visit: No (5) Hx of hypotension Status: Acute Current Visit: Yes
--- NOTE | 2017-07-02 07:19 | Oncology Progress Note ---
Oncology Subjective PN Interval history: Patient with chronic renal failure on hemodialysis. She actually has not had a liver biopsy and Dr. Liu posted a note this morning saying that there was nothing to biopsy. I will sign off. Exam - Constitutional Vitals: Period Temp Pulse Resp BP Sys/Bond Pulse Ox Last 24 Hr 97.5 F-98.6 F 79-101 18-20 87-135/44-75 96-100 Results - Labs CBC & BMP: 07/01/17 08:50 07/01/17 02:30
[2017-07-02] MEDS: ASPIRIN EC 81 MG TABLET PO SCH (08:26)
[2017-07-02] MEDS: DOCUSATE SODIUM 100 MG CAPSULE PO SCH ×2 (08:26→19:59)
[2017-07-02] MEDS: ENOXAPARIN 30 MG/0.3 ML SYRINGE SUBCUT SCH (08:27)
[2017-07-02] MEDS: PANTOPRAZOLE 40 MG TABLET PO SCH (08:27)
[2017-07-02] MEDS: MIDODRINE 5 MG TABLET PO SCH ×3 (08:27→19:59)
--- NOTE | 2017-07-02 11:53 | Hospitalist Progress Note ---
Assessment and Plan (1) Abdominal pain Problem details: Per surgery . Status: Acute Assessment and plan: most likely due to her multiple Liver cysts.She actually states she felt a cyst popped in her stomach this am and this has relieved her pain.Her Tumour markers are unimpressive.Oncology has signed off, there is nothing to biopsy. Plan continue pain meds and Nephrology's recommendations Current Visit: No Qualifiers: Abdominal location: right lower quadrant Qualified Code(s): R10.31 - Right lower quadrant pain (2) End stage renal disease Problem details: No acute indication for [employer] at this time. Status: Chronic Assessment and plan: continue with HD Current Visit: No (3) Obesity Status: Chronic Assessment and plan: will get TSH,Lipids and HbA1c level Current Visit: No (4) Hypotension Status: Acute Assessment and plan: continue with Mildodrin Current Visit: No Hospitalist: Subjective Interval history: Patient seen, she states that she feels like something popped in her stomach that relieved her pain. Exam - Constitutional Vitals: Period Temp Pulse Resp BP Sys/Bond Pulse Ox Last 24 Hr 97.5 F-98.5 F 79-101 18-20 87-135/44-75 96-100 General appearance: no acute distress - Head Head exam: Present: normal inspection - Respiratory Respiratory exam: Present: clear to auscultation bilaterally - Cardiovascular Cardiovascular exam: Present: regular rate and rhythm - GI/Abdominal GI/Abdominal exam: Present: normal bowel sounds, tenderness - Extremities Exam Extremities exam: Present: normal inspection - Neurological Exam Neurological exam: Present: alert, oriented X3 Results - Labs CBC & BMP: 07/01/17 08:50 07/01/17 02:30 Lab Results: I have reviewed the past 24 hour labs
[2017-07-02 13:10] LABS: Free T4 (Free Thyroxine) 0.95 NG/DL (0.76-1.46); Risk Ratio 4.69; Thyroid Stimulating Hormone 1.52 uIU/ml (0.358-3.74); VLDL CHOLESTEROL 33.6 MG/DL
[2017-07-03] MEDS: HYDROmorphone 2 MG/1 ML VIAL IV PRN ×2 (01:40→12:45)
[2017-07-03 05:15] LABS: Basophils % 0.1 % (0.0-0.8); Eosinophils # 0.4 10*3/uL (0.0-0.87); Eosinophils % 5.2 % (0.00-10.9); Hematocrit 27.8 VOL% (35.7-47.0); Hemoglobin 9.5 GM/DL (12.0-16.0); Immature Granulocytes % 0.4 %; Immature Granulocytes Absolute 0.03 #; Lymphocytes # 1.4 10*3/uL (1.4-4.0); Lymphocytes % 17.4 % (21.3-54.2); Mean Corpuscular HGB Conc 34.2 GM/DL (32-36); Mean Corpuscular Hemoglobin 30 PG (27-34); Mean Corpuscular Volume 89.1 FL (87-102); Mean Platelet Volume 10.2 FL (9.6-12.0); Monocytes # 0.6 10*3/uL (0.11-0.8); Monocytes % 7.9 % (1.7-12.7); Neutrophils # 5.4 10*3/uL (1.4-7.4); Platelet Count 353 T/CUMM (130-400); Red Blood Count 3.12 MC/CUMM (3.8-5.5); Red Cell Distribution Width 16.2 % (9.3-17.3); White Blood Count 7.8 T/CUMM (4-12)
[2017-07-03 06:01] LABS: Osmolality,Calculated 285.8 MOS/KG (273-304); Potassium 5.6 MMOL/L (3.5-5.1)
--- NOTE | 2017-07-03 07:57 | Nephrology Progress Note ---
Nephrology - PN: Subj Interval history: Patient's pain is much improved. She feels like a liver cyst ruptured yesterday morning and has had improved pain control since then. She feels like she can handle this at home at this point. Physical exam general the patient is in no acute distress she is in a good mood Assessment/plan 1. End-stage renal disease-we will plan on hemodialysis today 2. Polycystic liver disease 3. Abdominal pain-this is improved Patient is okay for discharge from my standpoint we will try and arrange hemodialysis here today per the patient's request. Exam (PN)-Nephrology - Vital Signs Vital signs: Period Temp Pulse Resp BP Sys/Bond Pulse Ox Last 24 Hr 96.8 F-98.7 F 80-90 15-20 98-109/47-60 95-97 - Lab 07/03/17 04:06 07/03/17 04:06 Most recent lab results Calcium 8.0 MG/DL (8.5-10.1) L 07/03/17 04:06 Assessment and Plan (1) Abdominal pain Status: Acute Assessment and plan: This patient has a history of polycystic liver disease she has had problems with enlarging cyst and abdominal pain in the past. Her CT scan seems to reveal stable cyst disease, however she states she had a fever a few days ago I would wonder if she may have a cyst infection or some bleeding into 1 of her cysts. If her pain does not improve over the next few days we may want to give her trial of antibiotics. Current Visit: Yes (2) ESRD (end stage renal disease) Status: Acute Assessment and plan: We will plan on hemodialysis today Current Visit: Yes (3) Chronic pain Status: Acute Current Visit: No (4) Polycystic liver disease Status: Acute Current Visit: No (5) Hx of hypotension Status: Acute Current Visit: Yes
[2017-07-03] MEDS: ENOXAPARIN 30 MG/0.3 ML SYRINGE SUBCUT SCH (08:20)
[2017-07-03] MEDS: PANTOPRAZOLE 40 MG TABLET PO SCH (08:20)
[2017-07-03] MEDS: MIDODRINE 5 MG TABLET PO SCH (08:20)
[2017-07-03] MEDS: DOCUSATE SODIUM 100 MG CAPSULE PO SCH (08:20)
[2017-07-03] MEDS: ASPIRIN EC 81 MG TABLET PO SCH (08:20)
--- NOTE | 2017-07-03 08:48 | Discharge Summary ---
Hospital Course - Hospital Course Hospital Course: Ms. Juanjose Scott who is a 61 year old female with a history of ESRD on HD, who presents to the emergency room tonight complaining of epigastric pain. She has a history of diverticulitis and liver cyst. A CT scan of her abdomen was performed which showed numerous hypodensities in the liver, thickening of the distal stomach and proximal duodenum, small amount of pneumobilia, and a nodular density in the anterior right pericardial fat. A previous CT scan of her abdomen in March 2017 showed no acute intra-abdominal pelvic pathology but with chronic liver cyst, interstitial scarring in the lungs, surgical absence of the kidneys, and prior [id number]-[id number]. She was admitted started on pain and nausea medicines.Patient has had problems with enlarged cysts and associated with abdominal pain and went to [place] to have a special cyst drainage procedure done. Oncology was initially consulted because we initially thought CT scan that demonstrates what appears to be metastatic disease to the liver. But Nephrology stated that patient also had a hepatic ultrasound done that confirmed cysts some of which were complex. Oncology consult was discontinued. Patient's symptoms progressively improved.She felt like something popped in her stomach yesterday that relieved her pain.Her vitals remained stable. She feels great this am and abdominal pain has subsided. She will go home after dialysis today and follow with her Nephrology and PCP as outpatient. - Time spent with patient Time with patient DS: Greater than 30 minutes (time spent greater than 35mins) Diagnosis - Discharge Diagnosis (1) Abdominal pain Status: Acute (2) End stage renal disease Status: Chronic (3) Obesity Status: Chronic (4) Hypotension Status: Acute Discharge Plan - Discharge Data Disposition: Disch To Home/Self Care Condition at Discharge: Stable Discharge Diet: advance to your usual diet Activity: resume usual activities as tolerated - Discharge Medications New Pantoprazole Tab [Protonix Tab] 40 mg PO DAILY #30 tablet HYDROcodone/ACETAMIN 5-325 [Roggen 5-325] 1 tablet PO Q4H PRN #20 tablet PRN Reason: Pain Moderate (4-7) Continue Midodrine HCl 10 mg PO TID Docusate Sodium Cap [Colace Cap] 100 mg PO BID Cyanocobalamin (Vitamin B-12) [Vitamin B-12] 2,000 mcg PO DAILY Promethazine HCl 25 mg PO Q6H #20 Aspirin EC Tab 81 mg PO DAILY Discontinued Pantoprazole Sodium [Protonix] 40 mg PO QAM Hydrocodone/Acetaminophen [Hydrocodon-Acetaminophn 10-325] 1 tablet PO TID PRN PRN Reason: Pain - Follow Up or Referral - Forms/Instructions Additional Discharge Instructions: Follow with PCP in 1week, follow with Nephrology as scheduled Exam - Constitutional Vitals: Period Temp Pulse Resp BP Sys/Bond Pulse Ox Last 24 Hr 96.8 F-98.7 F 80-90 15-20 90-109/47-57 95-97 General appearance: no acute distress - Head Head exam: Present: normal inspection - Respiratory Respiratory exam: Present: clear to auscultation bilaterally - Cardiovascular Cardiovascular exam: Present: regular rate and rhythm - GI/Abdominal GI/Abdominal exam: Present: normal bowel sounds - Extremities Exam Extremities exam: Present: normal inspection Discharge Results Procedures and tests throughout hospitalization: Pending Orders 07/01/17 08:50 Cancer Antigen 125 Routine 07/02/17 07:16 Occult Blood, Stool Routine Labs on day of discharge: Labs from last 24 hours 07/03/17 07/03/17 07/02/17 04:06 04:06 12:22 WBC 7.8 RBC 3.12 L Hgb 9.5 L Hct 27.8 L MCV 89.1 MCH 30 MCHC 34.2 RDW 16.2 Plt Count 353 D MPV 10.2 Neut % (Auto) 69.0 Lymph % (Auto) 17.4 L Long % (Auto) 7.9 Eos % (Auto) 5.2 Baso % (Auto) 0.1 Neut # (Auto) 5.4 Lymph # (Auto) 1.4 Long # (Auto) 0.6 Eos # (Auto) 0.4 Baso # (Auto) 0.0 Immature Gran % 0.4 Nucleated RBC % 0.0 Immature Gran # 0.03 Nucleated RBCs # 0.00 Immature Plt Fraction 0.0 Sodium 137 Potassium 5.6 H Chloride 101 Carbon Dioxide 26 Anion Gap 15.6 H BUN 50 H Creatinine 11.10 H GFR Calculation 4 BUN/Creatinine Ratio 4.00 L Glucose 93 Hemoglobin A1c 4.6 Calculated Osmolality 285.8 Calcium 8.0 L Triglycerides Cholesterol LDL Cholesterol VLDL Cholesterol HDL Cholesterol Heart Disease Risk Ratio Free T4 TSH 3rd Generation 07/02/17 12:22 WBC RBC Hgb Hct MCV MCH MCHC RDW Plt Count MPV Neut % (Auto) Lymph % (Auto) Long % (Auto) Eos % (Auto) Baso % (Auto) Neut # (Auto) Lymph # (Auto) Long # (Auto) Eos # (Auto) Baso # (Auto) Immature Gran % Nucleated RBC % Immature Gran # Nucleated RBCs # Immature Plt Fraction Sodium Potassium Chloride Carbon Dioxide Anion Gap BUN Creatinine GFR Calculation BUN/Creatinine Ratio Glucose Hemoglobin A1c Calculated Osmolality Calcium Triglycerides 168 H Cholesterol 150 LDL Cholesterol 85.0 VLDL Cholesterol 33.6 HDL Cholesterol 32 L Heart Disease Risk Ratio 4.69 Free T4 0.95 TSH 3rd Generation 1.520 DS: Provider Date of admission: 07/01/17 04:52 Primary care physician: Justice Boyle DO Attending physician on admission: Jaden Keller MD Consults: 07/01/17 05:49 Consult to Physician [CONS] Routine Comment: MWF needs dialysis Consulting Provider: Jaden Mack Consulting Provider Notified: Yes When should Consulting Provider be notified: Now Consult to Specialist Group: Nephrology When should Consulting Provider be notified: In am Person Notified: DALLIN Date Notified: 07/01/17 Time Notified: 08:44 Consult to Physician [CONS] Routine Comment: suspicious liver mets; hx liver cysts Consulting Provider: Jaden Hernandez Discharging clinician: Ashley Galloway MD
--- NOTE | 2017-07-03 09:20 | Dialysis Note ---
Dialysis Note - Dialysis Note Patient seen on dialysis she is tolerating the procedure. She voices no complaints. Blood pressure is 90/54. Cardiovascular regular rate. Lungs clear to auscultation. Abdomen is soft.
[2017-07-03 12:58] VITALS: BP 85/50
== END 2017-07-03 13:27 | disposition home or self-care (01) | DRG 441 ==
LOC: N.ED 01:50 → N.EDINP 04:52 → SUATTDRO 04:52 → N.4E 05:36
PROVIDERS: ADMIT Internal Medicine; ATTEND Internal Medicine

== ENCOUNTER 2017-07-18 13:40 | Inpatient (IN) ==
[2017-07-18] MEDS ORDERED: ONDANSETRON 4 MG/2 ML VIAL IV STA (14:10)
[2017-07-18] MEDS ORDERED: PANTOPRAZOLE 40 MG VIAL IV STA (14:10)
[2017-07-18] MEDS ORDERED: METOCLOPRAMIDE 10 MG/2 ML VIAL IV STA (14:10)
[2017-07-18] MEDS ORDERED: SODIUM CHLORIDE 0.9% 500 ML IV STA (14:10)
[2017-07-18 15:31] LABS: Basophils % 0.2 % (0.0-0.8); Eosinophils # 0.1 10*3/uL (0.0-0.87); Eosinophils % 0.9 % (0.00-10.9); Hematocrit 26.4 VOL% (35.7-47.0); Immature Granulocytes % 0.4 %; Immature Granulocytes Absolute 0.05 #; Lymphocytes # 0.3 10*3/uL (1.4-4.0); Lymphocytes % 2.7 % (21.3-54.2); Mean Corpuscular HGB Conc 34.1 GM/DL (32-36); Mean Corpuscular Hemoglobin 29 PG (27-34); Mean Platelet Volume 9.7 FL (9.6-12.0); Monocytes # 0.2 10*3/uL (0.11-0.8); Monocytes % 1.3 % (1.7-12.7); Neutrophils # 10.7 10*3/uL (1.4-7.4); Neutrophils % 94.5 % (38.7-73.9); Platelet Count 334 T/CUMM (130-400); Red Blood Count 3.07 MC/CUMM (3.8-5.5); Red Cell Distribution Width 16.6 % (9.3-17.3); White Blood Count 11.4 T/CUMM (4-12)
[2017-07-18 16:09] LABS: Alanine Aminotransferase 9 U/L (13-56); Albumin 2.9 G/DL (3.4-5.0); Alkaline Phosphatase 78 U/L (45-117); Amylase 156 U/L (25-115); Aspartate Amino Transferase 10 U/L (0-37); Blood Urea Nitrogen 33 MG/DL (7-18); Calcium 8.6 MG/DL (8.5-10.1); Glucose 121 MG/DL (74-106); Osmolality,Calculated 273.4 MOS/KG (273-304); Potassium 4.9 MMOL/L (3.5-5.1); Sodium 133 MMOL/L (136-145); Total Protein 6.7 G/DL (6.4-8.3); Troponin I Only < 0.015 NG/ML (0.00-0.045)
[2017-07-18] MEDS ORDERED: AMPICILLIN/SULBACTAM 3,000 MG in SODIUM CHLORIDE 0.9% 100 ML IV STA (16:41)
[2017-07-18] MEDS ORDERED: METOCLOPRAMIDE 10 MG/2 ML VIAL ONE (16:45)
[2017-07-18] MEDS ORDERED: HYDROmorphone 2 MG/1 ML VIAL ONE (16:45)
[2017-07-18] MEDS ORDERED: ONDANSETRON 4 MG/2 ML VIAL ONE (16:45)
[2017-07-18] MEDS ORDERED: HYDROmorphone 2 MG/1 ML VIAL IV STA (17:09)
[2017-07-18] MEDS ORDERED: AMPICILLIN/SULBACTAM 3,000 MG VIAL ONE (17:14)
[2017-07-18] MEDS ORDERED: PANTOPRAZOLE 40 MG VIAL IV ONE (18:11)
[2017-07-18 18:34] LABS: Band Neutrophils 5 % (0-10); Hypochromasia Slight; Lymphocytes 1 % (20-55); Platelet Estimate Normal; Segmented Neutrophils 93 % (50-85); Total Cells Counted 100
[2017-07-18] MEDS ORDERED: ACETAMINOPHEN 325 MG TABLET PO PRN (20:46)
[2017-07-18] MEDS ORDERED: DEXTROSE 50% 25 GM/50 ML VIAL IV PRN (20:46)
[2017-07-18] MEDS ORDERED: GLUCAGON 1 MG VIAL IM PRN (20:46)
[2017-07-18] MEDS ORDERED: ZALEPLON 5 MG CAPSULE PO PRN (20:46)
[2017-07-18] MEDS ORDERED: SODIUM CHLORIDE 0.9% 1,000 ML IV ONE (20:46)
[2017-07-18] MEDS: ONDANSETRON 4 MG/2 ML VIAL IV PRN (20:50)
[2017-07-18] MEDS ORDERED: NOREPINEPHRINE 8 MG in SODIUM CHLORIDE 0.9% 242 ML IV SCH (21:30)
[2017-07-18] MEDS ORDERED: VANCOMYCIN INJ 1,250 MG in SODIUM CHLORIDE 0.9% 250 ML IV ONE (21:30)
[2017-07-18 21:48] LABS: Lactic Acid 1.3 MMOL/L (0.4-2.0)
[2017-07-18 21:56] LABS: Magnesium 2.1 MG/DL (1.8-2.4)
[2017-07-18] MEDS ORDERED: GENTAMICIN INJ 100 MG in SODIUM CHLORIDE 0.9% 100 ML IV ONE (22:30)
[2017-07-18] MEDS: INSULIN LISPRO 100 UNIT/ML SUBCUT SCH (22:56)
[2017-07-18] MEDS: DOCUSATE SODIUM 100 MG CAPSULE PO SCH (23:11)
[2017-07-18] MEDS: GABAPENTIN 100 MG CAPSULE PO SCH (23:11)
[2017-07-18] MEDS: ENOXAPARIN 30 MG/0.3 ML SYRINGE SUBCUT SCH (23:11)
[2017-07-19] MEDS: ONDANSETRON 4 MG/2 ML VIAL IV PRN ×4 (01:15→17:46)
[2017-07-19 06:19] LABS: Osmolality,Calculated 279.1 MOS/KG (273-304); Potassium 5.6 MMOL/L (3.5-5.1)
[2017-07-19 07:17] LABS: Basophils % 0.2 % (0.0-0.8); Eosinophils # 0.2 10*3/uL (0.0-0.87); Eosinophils % 1.8 % (0.00-10.9); Hematocrit 31.6 VOL% (35.7-47.0); Hemoglobin 10.3 GM/DL (12.0-16.0); Immature Granulocytes % 0.5 %; Immature Granulocytes Absolute 0.07 #; Lymphocytes # 1.1 10*3/uL (1.4-4.0); Lymphocytes % 8.4 % (21.3-54.2); Mean Corpuscular HGB Conc 32.6 GM/DL (32-36); Mean Corpuscular Hemoglobin 29 PG (27-34); Mean Corpuscular Volume 89.3 FL (87-102); Mean Platelet Volume 10.4 FL (9.6-12.0); Monocytes # 1.1 10*3/uL (0.11-0.8); Monocytes % 8.2 % (1.7-12.7); Neutrophils # 10.9 10*3/uL (1.4-7.4); Neutrophils % 80.9 % (38.7-73.9); Platelet Count 329 T/CUMM (130-400); Red Blood Count 3.54 MC/CUMM (3.8-5.5); Red Cell Distribution Width 16.7 % (9.3-17.3); White Blood Count 13.5 T/CUMM (4-12)
[2017-07-19] MEDS: CALCIUM ACETATE 667 MG CAPSULE PO SCH ×3 (08:39→17:46)
[2017-07-19] MEDS: ASPIRIN EC 81 MG TABLET PO SCH (08:40)
[2017-07-19] MEDS: CYANOCOBALAMIN 500 MCG TABLET PO SCH (08:40)
[2017-07-19] MEDS: PANTOPRAZOLE 40 MG TABLET PO SCH (08:41)
[2017-07-19] MEDS: GABAPENTIN 100 MG CAPSULE PO SCH ×2 (08:41→21:02)
[2017-07-19] MEDS: DOCUSATE SODIUM 100 MG CAPSULE PO SCH ×2 (08:41→21:03)
[2017-07-19] MEDS ORDERED: VANCOMYCIN INJ 600 MG in SODIUM CHLORIDE 0.9% 250 ML IV PRN (08:59)
[2017-07-19] MEDS ORDERED: GENTAMICIN INJ 120 MG in PREMIX 1 EACH IV PRN (09:00)
[2017-07-19] MEDS ORDERED: NON-FORMULARY MEDICATION (Biotin [Biotin] 1 MG) PO SCH (09:00)
[2017-07-19] MEDS: INSULIN LISPRO 100 UNIT/ML SUBCUT SCH ×4 (09:52→21:03)
[2017-07-19] MEDS: LACTULOSE 20 GM/30 ML UDCUP PO SCH ×3 (11:49→23:55)
[2017-07-19] MEDS ORDERED: GENTAMICIN INJ 120 MG in PREMIX 1 EACH IV ONE (16:00)
[2017-07-19] MEDS ORDERED: VANCOMYCIN INJ 600 MG in SODIUM CHLORIDE 0.9% 250 ML IV ONE (17:00)
[2017-07-19] MEDS ORDERED: SODIUM CHLORIDE 0.9% 500 ML IV ONE (17:26)
[2017-07-19] MEDS ORDERED: MORPHINE 2 MG/1 ML SYRINGE IV ONE (17:27)
[2017-07-19] MEDS ORDERED: CALCIUM ACETATE 667 MG CAPSULE PO SCH (20:11)
[2017-07-19] MEDS: MIDODRINE 5 MG TABLET PO SCH ×2 (21:03→22:15)
[2017-07-19] MEDS: ENOXAPARIN 30 MG/0.3 ML SYRINGE SUBCUT SCH (21:04)
[2017-07-20 04:01] LABS: Basophils % 0.2 % (0.0-0.8); Eosinophils # 0.3 10*3/uL (0.0-0.87); Eosinophils % 2.7 % (0.00-10.9); Hematocrit 25.9 VOL% (35.7-47.0); Hemoglobin 8.5 GM/DL (12.0-16.0); Immature Granulocytes % 0.5 %; Immature Granulocytes Absolute 0.06 #; Lymphocytes # 0.9 10*3/uL (1.4-4.0); Lymphocytes % 7.2 % (21.3-54.2); Mean Corpuscular HGB Conc 32.8 GM/DL (32-36); Mean Corpuscular Hemoglobin 29 PG (27-34); Mean Corpuscular Volume 87.5 FL (87-102); Mean Platelet Volume 10.2 FL (9.6-12.0); Monocytes # 1.4 10*3/uL (0.11-0.8); Neutrophils # 9.9 10*3/uL (1.4-7.4); Neutrophils % 78.4 % (38.7-73.9); Platelet Count 344 T/CUMM (130-400); Red Blood Count 2.96 MC/CUMM (3.8-5.5); Red Cell Distribution Width 16.7 % (9.3-17.3); White Blood Count 12.6 T/CUMM (4-12)
[2017-07-20 04:25] LABS: Calcium 8.2 MG/DL (8.5-10.1); Osmolality,Calculated 279.8 MOS/KG (273-304); Potassium 4.7 MMOL/L (3.5-5.1)
[2017-07-20] MEDS: LACTULOSE 20 GM/30 ML UDCUP PO SCH ×4 (05:05→23:49)
[2017-07-20] MEDS: INSULIN LISPRO 100 UNIT/ML SUBCUT SCH (08:55)
[2017-07-20] MEDS: CYANOCOBALAMIN 500 MCG TABLET PO SCH (09:15)
[2017-07-20] MEDS: MIDODRINE 5 MG TABLET PO SCH ×3 (09:16→20:07)
[2017-07-20] MEDS: ASPIRIN EC 81 MG TABLET PO SCH (09:16)
[2017-07-20] MEDS: MULTIVITAMIN (BEROCCA) TABLET PO SCH (09:16)
[2017-07-20] MEDS: DOCUSATE SODIUM 100 MG CAPSULE PO SCH ×2 (09:17→20:07)
[2017-07-20] MEDS: CALCIUM ACETATE 667 MG CAPSULE PO SCH ×3 (09:18→17:37)
[2017-07-20] MEDS: PANTOPRAZOLE 40 MG TABLET PO SCH (09:18)
[2017-07-20] MEDS: GABAPENTIN 100 MG CAPSULE PO SCH ×2 (09:19→20:07)
[2017-07-20] MEDS ORDERED: MORPHINE 2 MG/1 ML SYRINGE IV PRN (10:42)
[2017-07-20] MEDS: ONDANSETRON 4 MG/2 ML VIAL IV PRN (12:02)
[2017-07-20] MEDS ORDERED: SODIUM CHLORIDE 0.9% 1,000 ML IV SCH (14:30)
[2017-07-20] MEDS ORDERED: HYDROmorphone 2 MG/1 ML VIAL IV PRN (14:31)
[2017-07-20] MEDS: SUCRALFATE 1 GM/10 ML UDCUP PO SCH ×2 (17:38→20:07)
[2017-07-20] MEDS: ENOXAPARIN 30 MG/0.3 ML SYRINGE SUBCUT SCH (20:07)
[2017-07-20] MEDS: HYDROmorphone 2 MG/1 ML VIAL IM PRN (23:51)
[2017-07-21] MEDS: LACTULOSE 20 GM/30 ML UDCUP PO SCH ×4 (06:20→23:02)
[2017-07-21] MEDS: CYANOCOBALAMIN 500 MCG TABLET PO SCH (08:43)
[2017-07-21] MEDS: MIDODRINE 5 MG TABLET PO SCH ×3 (08:43→20:33)
[2017-07-21] MEDS: PANTOPRAZOLE 40 MG TABLET PO SCH ×2 (08:44→20:33)
[2017-07-21] MEDS: DOCUSATE SODIUM 100 MG CAPSULE PO SCH ×2 (08:44→20:33)
[2017-07-21] MEDS: ASPIRIN EC 81 MG TABLET PO SCH (08:44)
[2017-07-21] MEDS: CALCIUM ACETATE 667 MG CAPSULE PO SCH ×3 (08:45→17:20)
[2017-07-21] MEDS: MULTIVITAMIN (BEROCCA) TABLET PO SCH (08:45)
[2017-07-21] MEDS: SUCRALFATE 1 GM/10 ML UDCUP PO SCH ×4 (08:46→20:36)
[2017-07-21] MEDS: GABAPENTIN 100 MG CAPSULE PO SCH ×2 (08:49→20:34)
[2017-07-21] MEDS: HYDROmorphone 2 MG/1 ML VIAL IM PRN ×3 (09:09→20:36)
[2017-07-21 13:50] LABS: Apearance,Urine CLOUDY (Clear); Bacteria,Urine Occasional /HPF (Few); Bilirubin,Urine Negative (Negative); Blood, Urine Large mg/dL (Negative); Glucose,Urine (UA) Negative (Negative); Ketones,Urine Negative (Negative); Nitrite,Urine Negative (Negative); Protein,Urine Negative; RBC,Urine 75 /HPF (0-4); Squamous Epithelial Cell,Urine Occasional /HPF (0-10); Urine Color Yellow (Yellow); Urine Specific Gravity 1.003 (1.001-1.035); Urine Urobilinogen < 2.0 EU/DL (0.2-1.0); WBC,Urine 11 /HPF (0-6)
[2017-07-21] MEDS ORDERED: PROMETHAZINE 25 MG/1 ML VIAL IM PRN (18:21)
[2017-07-22] MEDS: HYDROmorphone 2 MG/1 ML VIAL IM PRN ×3 (03:57→20:19)
[2017-07-22] MEDS: LACTULOSE 20 GM/30 ML UDCUP PO SCH ×4 (04:57→22:50)
[2017-07-22] MEDS: SUCRALFATE 1 GM/10 ML UDCUP PO SCH ×4 (08:19→20:19)
[2017-07-22] MEDS: CALCIUM ACETATE 667 MG CAPSULE PO SCH ×3 (08:19→16:47)
[2017-07-22] MEDS ORDERED: PROPOFOL 200 MG/20 ML VIAL IV ONE (08:28)
[2017-07-22] MEDS ORDERED: LIDOCAINE 100 MG/5 ML SYRINGE ONE (08:28)
[2017-07-22] MEDS: CYANOCOBALAMIN 500 MCG TABLET PO SCH (08:54)
[2017-07-22] MEDS: MULTIVITAMIN (BEROCCA) TABLET PO SCH (08:54)
[2017-07-22] MEDS: DOCUSATE SODIUM 100 MG CAPSULE PO SCH ×2 (08:54→20:19)
[2017-07-22] MEDS: PANTOPRAZOLE 40 MG TABLET PO SCH ×2 (08:54→20:19)
[2017-07-22] MEDS: MIDODRINE 5 MG TABLET PO SCH ×3 (08:54→20:19)
[2017-07-22] MEDS: GABAPENTIN 100 MG CAPSULE PO SCH ×2 (08:54→20:19)
[2017-07-22] MEDS ORDERED: PANTOPRAZOLE 40 MG TABLET PO SCH (09:00)
[2017-07-22] MEDS ORDERED: GENTAMICIN INJ 120 MG in PREMIX 1 EACH IV ONE (16:00)
[2017-07-23] MEDS: HYDROmorphone 2 MG/1 ML VIAL IM PRN ×5 (00:24→21:04)
[2017-07-23] MEDS: LACTULOSE 20 GM/30 ML UDCUP PO SCH ×4 (05:02→23:57)
[2017-07-23] MEDS: CALCIUM ACETATE 667 MG CAPSULE PO SCH ×3 (07:51→17:21)
[2017-07-23] MEDS: SUCRALFATE 1 GM/10 ML UDCUP PO SCH ×4 (07:51→21:05)
[2017-07-23] MEDS: GABAPENTIN 100 MG CAPSULE PO SCH ×2 (08:16→21:05)
[2017-07-23] MEDS: MULTIVITAMIN (BEROCCA) TABLET PO SCH (08:16)
[2017-07-23] MEDS: DOCUSATE SODIUM 100 MG CAPSULE PO SCH ×2 (08:16→21:05)
[2017-07-23] MEDS: MIDODRINE 5 MG TABLET PO SCH ×3 (08:18→21:05)
[2017-07-23] MEDS: PANTOPRAZOLE 40 MG TABLET PO SCH ×2 (08:19→21:05)
[2017-07-23] MEDS: CYANOCOBALAMIN 500 MCG TABLET PO SCH (08:19)
[2017-07-23] MEDS: LIDOCAINE 5% PATCH TRANSDERM SCH (17:33)
[2017-07-24] MEDS: HYDROmorphone 2 MG/1 ML VIAL IM PRN ×2 (01:36→06:31)
[2017-07-24] MEDS: LACTULOSE 20 GM/30 ML UDCUP PO SCH ×4 (05:16→23:17)
[2017-07-24] MEDS: ONDANSETRON 4 MG/2 ML VIAL IV PRN ×2 (05:27→20:28)
[2017-07-24] MEDS: CYANOCOBALAMIN 500 MCG TABLET PO SCH (08:12)
[2017-07-24] MEDS: MIDODRINE 5 MG TABLET PO SCH ×3 (08:12→20:30)
[2017-07-24] MEDS: SUCRALFATE 1 GM/10 ML UDCUP PO SCH ×4 (08:13→20:30)
[2017-07-24] MEDS: CALCIUM ACETATE 667 MG CAPSULE PO SCH ×3 (08:13→16:44)
[2017-07-24] MEDS: DOCUSATE SODIUM 100 MG CAPSULE PO SCH ×2 (08:14→20:30)
[2017-07-24] MEDS: GABAPENTIN 100 MG CAPSULE PO SCH ×2 (08:14→20:30)
[2017-07-24] MEDS: MULTIVITAMIN (BEROCCA) TABLET PO SCH (08:15)
[2017-07-24] MEDS: LIDOCAINE 5% PATCH TRANSDERM SCH (08:15)
[2017-07-24] MEDS: PANTOPRAZOLE 40 MG TABLET PO SCH ×2 (08:15→20:30)
[2017-07-24] MEDS ORDERED: GENTAMICIN INJ 100 MG in SODIUM CHLORIDE 0.9% 100 ML IV PRN (10:30)
[2017-07-24] MEDS ORDERED: traMADol 50 MG TABLET PO PRN (10:48)
[2017-07-24] MEDS: HYDROmorphone 2 MG/1 ML VIAL IV PRN ×3 (13:31→23:08)
[2017-07-25] MEDS: HYDROmorphone 2 MG/1 ML VIAL IV PRN ×3 (05:04→19:09)
[2017-07-25] MEDS: ONDANSETRON 4 MG/2 ML VIAL IV PRN ×2 (05:05→14:21)
[2017-07-25] MEDS: LACTULOSE 20 GM/30 ML UDCUP PO SCH ×4 (05:30→23:30)
[2017-07-25] MEDS: SUCRALFATE 1 GM/10 ML UDCUP PO SCH ×4 (08:07→21:50)
[2017-07-25] MEDS: CALCIUM ACETATE 667 MG CAPSULE PO SCH ×3 (08:07→16:53)
[2017-07-25] MEDS: MULTIVITAMIN (BEROCCA) TABLET PO SCH (09:21)
[2017-07-25] MEDS: DOCUSATE SODIUM 100 MG CAPSULE PO SCH ×2 (09:21→21:50)
[2017-07-25] MEDS: CYANOCOBALAMIN 500 MCG TABLET PO SCH (09:21)
[2017-07-25] MEDS: GABAPENTIN 100 MG CAPSULE PO SCH ×2 (09:22→21:50)
[2017-07-25] MEDS: PANTOPRAZOLE 40 MG TABLET PO SCH ×2 (09:23→21:50)
[2017-07-25] MEDS: MIDODRINE 5 MG TABLET PO SCH ×3 (09:23→21:50)
[2017-07-25] MEDS: LIDOCAINE 5% PATCH TRANSDERM SCH (09:24)
[2017-07-26] MEDS: HYDROmorphone 2 MG/1 ML VIAL IV PRN ×2 (03:17→13:16)
[2017-07-26 05:04] LABS: Basophils % 0.3 % (0.0-0.8); Eosinophils # 0.8 10*3/uL (0.0-0.87); Eosinophils % 8.7 % (0.00-10.9); Hematocrit 26.5 VOL% (35.7-47.0); Hemoglobin 8.6 GM/DL (12.0-16.0); Immature Granulocytes % 3.5 %; Immature Granulocytes Absolute 0.31 #; Lymphocytes # 1.6 10*3/uL (1.4-4.0); Lymphocytes % 17.9 % (21.3-54.2); Mean Corpuscular HGB Conc 32.5 GM/DL (32-36); Mean Corpuscular Hemoglobin 28 PG (27-34); Mean Corpuscular Volume 87.5 FL (87-102); Mean Platelet Volume 9.7 FL (9.6-12.0); Monocytes # 0.6 10*3/uL (0.11-0.8); Neutrophils # 5.6 10*3/uL (1.4-7.4); Neutrophils % 62.6 % (38.7-73.9); Platelet Count 521 T/CUMM (130-400); Red Blood Count 3.03 MC/CUMM (3.8-5.5); Red Cell Distribution Width 17.2 % (9.3-17.3); White Blood Count 8.9 T/CUMM (4-12)
[2017-07-26 05:23] LABS: Alanine Aminotransferase < 9 U/L (13-56); Albumin 2.5 G/DL (3.4-5.0); Alkaline Phosphatase 92 U/L (45-117); Amylase 313 U/L (25-115); Aspartate Amino Transferase 12 U/L (0-37); Blood Urea Nitrogen 33 MG/DL (7-18); Calcium 8.5 MG/DL (8.5-10.1); Glucose 104 MG/DL (74-106); Sodium 136 MMOL/L (136-145); Total Protein 6.7 G/DL (6.4-8.3)
[2017-07-26 07:42] VITALS: BP 124/86
[2017-07-26] MEDS: DOCUSATE SODIUM 100 MG CAPSULE PO SCH (08:09)
[2017-07-26] MEDS: CYANOCOBALAMIN 500 MCG TABLET PO SCH (08:09)
[2017-07-26] MEDS: GABAPENTIN 100 MG CAPSULE PO SCH (08:09)
[2017-07-26] MEDS: MIDODRINE 5 MG TABLET PO SCH ×2 (08:09→14:17)
[2017-07-26] MEDS: SUCRALFATE 1 GM/10 ML UDCUP PO SCH ×2 (08:09→10:37)
[2017-07-26] MEDS: CALCIUM ACETATE 667 MG CAPSULE PO SCH ×2 (08:09→11:12)
[2017-07-26] MEDS: MULTIVITAMIN (BEROCCA) TABLET PO SCH (08:09)
[2017-07-26] MEDS: PANTOPRAZOLE 40 MG TABLET PO SCH (08:09)
[2017-07-26] MEDS: LIDOCAINE 5% PATCH TRANSDERM SCH (08:10)
== END 2017-07-26 15:45 | disposition home or self-care (01) | DRG 871 ==
LOC: EDUNIT# → EDBD → N.ED 13:40 → SUATTDRO 18:23 → N.EDINP 18:23 → N.CC 19:12 → N.3E 07-19 19:59
PROVIDERS: ADMIT Internal Medicine; ATTEND Internal Medicine Geriatric Medicine

== ENCOUNTER 2017-08-01 14:32 | Inpatient (IN) ==
[2017-08-01] MEDS ORDERED: ONDANSETRON 4 MG/2 ML VIAL IV PRN (17:12)
[2017-08-01] MEDS ORDERED: SODIUM CHLORIDE 0.9% 1,000 ML IV SCH (17:30)
[2017-08-01] MEDS ORDERED: CALCIUM ACETATE 667 MG CAPSULE PO SCH (17:30)
[2017-08-01] MEDS ORDERED: HYDROmorphone 2 MG/1 ML VIAL IV PRN (18:54)
[2017-08-01 19:35] LABS: Basophils % 0.5 % (0.0-0.8); Eosinophils # 0.7 10*3/uL (0.0-0.87); Hematocrit 28.7 VOL% (35.7-47.0); Hemoglobin 9.4 GM/DL (12.0-16.0); Immature Granulocytes % 0.9 %; Immature Granulocytes Absolute 0.08 #; Lymphocytes # 1.4 10*3/uL (1.4-4.0); Lymphocytes % 16.9 % (21.3-54.2); Mean Corpuscular HGB Conc 32.8 GM/DL (32-36); Mean Corpuscular Hemoglobin 28 PG (27-34); Mean Corpuscular Volume 85.4 FL (87-102); Mean Platelet Volume 9.6 FL (9.6-12.0); Monocytes # 0.4 10*3/uL (0.11-0.8); Monocytes % 4.7 % (1.7-12.7); Neutrophils # 5.9 10*3/uL (1.4-7.4); Platelet Count 485 T/CUMM (130-400); Red Blood Count 3.36 MC/CUMM (3.8-5.5); Red Cell Distribution Width 17.5 % (9.3-17.3); White Blood Count 8.5 T/CUMM (4-12)
[2017-08-01 20:12] LABS: Calcium 8.3 MG/DL (8.5-10.1); Magnesium 2.5 MG/DL (1.8-2.4); Potassium 4.3 MMOL/L (3.5-5.1)
[2017-08-01] MEDS: DOCUSATE SODIUM 100 MG CAPSULE PO SCH (20:19)
[2017-08-01] MEDS: MIDODRINE 5 MG TABLET PO SCH (20:19)
[2017-08-01] MEDS: ACETAMINOPHEN 325 MG TABLET PO PRN (20:19)
[2017-08-01] MEDS: GABAPENTIN 100 MG CAPSULE PO SCH (20:19)
[2017-08-01] MEDS: NON-FORMULARY MEDICATION (Biotin [Biotin] 1 MG) PO SCH (20:20)
[2017-08-01] MEDS: ONDANSETRON 4 MG TABLET PO PRN (23:18)
[2017-08-02] MEDS: ACETAMINOPHEN 325 MG TABLET PO PRN (02:40)
[2017-08-02 05:56] LABS: Basophils # 0.1 10*3/uL (0.0-0.2); Basophils % 0.6 % (0.0-0.8); Eosinophils # 0.8 10*3/uL (0.0-0.87); Eosinophils % 9.5 % (0.00-10.9); Hematocrit 29.1 VOL% (35.7-47.0); Hemoglobin 9.5 GM/DL (12.0-16.0); Immature Granulocytes % 0.9 %; Immature Granulocytes Absolute 0.07 #; Lymphocytes # 1.3 10*3/uL (1.4-4.0); Lymphocytes % 16.3 % (21.3-54.2); Mean Corpuscular HGB Conc 32.6 GM/DL (32-36); Mean Corpuscular Hemoglobin 28 PG (27-34); Mean Corpuscular Volume 84.6 FL (87-102); Mean Platelet Volume 9.9 FL (9.6-12.0); Monocytes # 0.6 10*3/uL (0.11-0.8); Monocytes % 6.8 % (1.7-12.7); Neutrophils # 5.3 10*3/uL (1.4-7.4); Neutrophils % 65.9 % (38.7-73.9); Platelet Count 445 T/CUMM (130-400); Red Blood Count 3.44 MC/CUMM (3.8-5.5); Red Cell Distribution Width 17.4 % (9.3-17.3)
[2017-08-02 06:23] LABS: Calcium 8.6 MG/DL (8.5-10.1); Magnesium 2.4 MG/DL (1.8-2.4); Osmolality,Calculated 276.1 MOS/KG (273-304); Potassium 5.1 MMOL/L (3.5-5.1)
[2017-08-02] MEDS ORDERED: MORPHINE 2 MG/1 ML SYRINGE IV ONE (09:57)
[2017-08-02] MEDS ORDERED: MORPHINE 2 MG/1 ML SYRINGE IM ONE (09:57)
[2017-08-02] MEDS: CYANOCOBALAMIN 500 MCG TABLET PO SCH (10:18)
[2017-08-02] MEDS: MIDODRINE 5 MG TABLET PO SCH ×3 (10:18→20:41)
[2017-08-02] MEDS: DOCUSATE SODIUM 100 MG CAPSULE PO SCH ×2 (10:18→20:41)
[2017-08-02] MEDS: MULTIVITAMIN (BEROCCA) TABLET PO SCH (10:19)
[2017-08-02] MEDS: GABAPENTIN 100 MG CAPSULE PO SCH ×2 (10:19→20:41)
[2017-08-02] MEDS: PANTOPRAZOLE 40 MG TABLET PO SCH (10:19)
[2017-08-02] MEDS: PREGABALIN 25 MG CAPSULE PO SCH ×2 (10:20→20:41)
[2017-08-02] MEDS: CALCIUM ACETATE 667 MG CAPSULE PO SCH ×3 (10:20→18:24)
[2017-08-02] MEDS: ASPIRIN EC 81 MG TABLET PO SCH (10:24)
[2017-08-02] MEDS: ONDANSETRON 4 MG TABLET PO PRN (18:24)
[2017-08-02] MEDS: NON-FORMULARY MEDICATION (Biotin [Biotin] 1 MG) PO SCH (20:40)
[2017-08-03] MEDS ORDERED: METOPROLOL TARTRATE 25 MG TABLET PO ONE (01:10)
[2017-08-03] MEDS ORDERED: METOPROLOL TARTRATE 25 MG TABLET ONE (01:15)
[2017-08-03] MEDS: CALCIUM ACETATE 667 MG CAPSULE PO SCH ×2 (08:21→11:54)
[2017-08-03] MEDS: CYANOCOBALAMIN 500 MCG TABLET PO SCH (08:23)
[2017-08-03] MEDS: DOCUSATE SODIUM 100 MG CAPSULE PO SCH (08:23)
[2017-08-03] MEDS: MIDODRINE 5 MG TABLET PO SCH ×2 (08:23→15:16)
[2017-08-03] MEDS: PREGABALIN 25 MG CAPSULE PO SCH (08:24)
[2017-08-03] MEDS: PANTOPRAZOLE 40 MG TABLET PO SCH (08:24)
[2017-08-03] MEDS: MULTIVITAMIN (BEROCCA) TABLET PO SCH (08:24)
[2017-08-03] MEDS: ASPIRIN EC 81 MG TABLET PO SCH (08:25)
[2017-08-03] MEDS: GABAPENTIN 100 MG CAPSULE PO SCH (09:31)
[2017-08-03] MEDS: ONDANSETRON 4 MG TABLET PO PRN (12:22)
[2017-08-03 16:36] VITALS: BP 120/86
== END 2017-08-03 17:30 | disposition home or self-care (01) | DRG 391 ==
LOC: N.TELEN 15:33
PROVIDERS: ADMIT Internal Medicine; ATTEND Internal Medicine

== ENCOUNTER 2017-10-09 15:35 | Inpatient (IN) ==
[2017-10-09 17:11] LABS: Basophils % 0.2 % (0.0-0.8); Eosinophils # 0.2 10*3/uL (0.0-0.87); Eosinophils % 2.2 % (0.00-10.9); Hematocrit 34.9 VOL% (35.7-47.0); Hemoglobin 11.4 GM/DL (12.0-16.0); Immature Granulocytes % 0.3 %; Immature Granulocytes Absolute 0.03 #; Lymphocytes # 0.7 10*3/uL (1.4-4.0); Lymphocytes % 7.2 % (21.3-54.2); Mean Corpuscular HGB Conc 32.7 GM/DL (32-36); Mean Corpuscular Hemoglobin 27 PG (27-34); Mean Corpuscular Volume 82.7 FL (87-102); Mean Platelet Volume 11.7 FL (9.6-12.0); Monocytes # 0.3 10*3/uL (0.11-0.8); Monocytes % 3.5 % (1.7-12.7); Neutrophils # 7.9 10*3/uL (1.4-7.4); Neutrophils % 86.6 % (38.7-73.9); Platelet Count 154 T/CUMM (130-400); Red Blood Count 4.22 MC/CUMM (3.8-5.5); Red Cell Distribution Width 18.4 % (9.3-17.3); White Blood Count 9.1 T/CUMM (4-12)
[2017-10-09 17:19] LABS: PT Patient Result 10.3 SECS; Partial Thromboplastin Time 31.3 SECS (0-40)
[2017-10-09] MEDS ORDERED: ONDANSETRON 4 MG/2 ML VIAL ONE (17:30)
[2017-10-09] MEDS ORDERED: KETOROLAC 30 MG/1 ML VIAL ONE (17:30)
[2017-10-09] MEDS ORDERED: HYDROmorphone 2 MG/1 ML VIAL ONE (17:30)
[2017-10-09 17:36] LABS: Albumin 3.7 G/DL (3.4-5.0); Bilirubin,Total 0.8 MG/DL (0.2-1.0); Calcium 8.3 MG/DL (8.5-10.1); Potassium 5.2 MMOL/L (3.5-5.1); Total Protein 7.8 G/DL (6.4-8.3)
[2017-10-09] MEDS ORDERED: HYDROmorphone 2 MG/1 ML VIAL IV STA (17:37)
[2017-10-09] MEDS ORDERED: ONDANSETRON 4 MG/2 ML VIAL IV STA (17:38)
[2017-10-09] MEDS ORDERED: KETOROLAC 30 MG/1 ML VIAL IV STA (17:38)
[2017-10-09] MEDS ORDERED: ALBUTEROL/IPRATROPIUM 3 ML NEB RESP TX PRN (17:55)
[2017-10-09] MEDS ORDERED: LEVOFLOXACIN INJ 100 ML IV ONE (20:05)
[2017-10-09] MEDS ORDERED: ENOXAPARIN 30 MG/0.3 ML SYRINGE ONE (20:05)
[2017-10-09] MEDS: LEVOFLOXACIN INJ 500 MG in PREMIX 1 EACH IV SCH (20:09)
[2017-10-09] MEDS: ENOXAPARIN 30 MG/0.3 ML SYRINGE SUBCUT SCH (20:11)
[2017-10-09] MEDS ORDERED: ACETAMINOPHEN 325 MG TABLET ONE (21:14)
[2017-10-09] MEDS: ACETAMINOPHEN 325 MG TABLET PO PRN (21:14)
[2017-10-10] MEDS: ACETAMINOPHEN 325 MG TABLET PO PRN (00:52)
[2017-10-10 05:42] LABS: Basophils % 0.1 % (0.0-0.8); Eosinophils # 0.1 10*3/uL (0.0-0.87); Eosinophils % 1.4 % (0.00-10.9); Hematocrit 32.6 VOL% (35.7-47.0); Hemoglobin 10.5 GM/DL (12.0-16.0); Immature Granulocytes % 0.5 %; Immature Granulocytes Absolute 0.05 #; Lymphocytes # 0.8 10*3/uL (1.4-4.0); Lymphocytes % 8.7 % (21.3-54.2); Mean Corpuscular HGB Conc 32.2 GM/DL (32-36); Mean Corpuscular Hemoglobin 27 PG (27-34); Mean Corpuscular Volume 83.2 FL (87-102); Mean Platelet Volume 11.8 FL (9.6-12.0); Monocytes # 0.7 10*3/uL (0.11-0.8); Neutrophils # 7.7 10*3/uL (1.4-7.4); Neutrophils % 82.3 % (38.7-73.9); Platelet Count 140 T/CUMM (130-400); Red Blood Count 3.92 MC/CUMM (3.8-5.5); Red Cell Distribution Width 18.2 % (9.3-17.3); White Blood Count 9.4 T/CUMM (4-12)
[2017-10-10 06:19] LABS: Calcium 7.4 MG/DL (8.5-10.1); Osmolality,Calculated 284.8 MOS/KG (273-304); Potassium 5.7 MMOL/L (3.5-5.1)
[2017-10-10] MEDS: MIDODRINE 5 MG TABLET PO SCH ×3 (08:55→21:52)
[2017-10-10] MEDS: MULTIVITAMIN (BEROCCA) TABLET PO SCH (08:55)
[2017-10-10] MEDS: CALCIUM ACETATE 667 MG CAPSULE PO SCH ×3 (08:55→17:57)
[2017-10-10] MEDS: ASPIRIN EC 81 MG TABLET PO SCH (08:56)
[2017-10-10] MEDS: CYANOCOBALAMIN 500 MCG TABLET PO SCH (08:56)
[2017-10-10] MEDS: GABAPENTIN 100 MG CAPSULE PO SCH ×2 (08:57→21:53)
[2017-10-10] MEDS: DOCUSATE SODIUM 100 MG CAPSULE PO SCH (08:57)
[2017-10-10] MEDS: PANTOPRAZOLE 40 MG TABLET PO SCH (08:58)
[2017-10-10] MEDS ORDERED: CALCIUM ACETATE 667 MG CAPSULE PO PRN (09:00)
[2017-10-10] MEDS ORDERED: CYANOCOBALAMIN 500 MCG TABLET PO SCH (09:00)
[2017-10-10] MEDS ORDERED: AZITHROMYCIN INJ 500 MG in SODIUM CHLORIDE 0.9% 250 ML IV SCH (09:30)
[2017-10-10] MEDS: ENOXAPARIN 30 MG/0.3 ML SYRINGE SUBCUT SCH (17:57)
[2017-10-10] MEDS ORDERED: NON-FORMULARY MEDICATION (Biotin [Biotin] 1 MG) PO SCH (21:00)
[2017-10-11] MEDS: CALCIUM ACETATE 667 MG CAPSULE PO SCH ×3 (08:34→16:35)
[2017-10-11] MEDS: GABAPENTIN 100 MG CAPSULE PO SCH ×2 (08:34→20:39)
[2017-10-11] MEDS: CYANOCOBALAMIN 500 MCG TABLET PO SCH (08:34)
[2017-10-11] MEDS: MIDODRINE 5 MG TABLET PO SCH ×3 (08:34→20:39)
[2017-10-11] MEDS: ASPIRIN EC 81 MG TABLET PO SCH (08:35)
[2017-10-11] MEDS: PANTOPRAZOLE 40 MG TABLET PO SCH (08:35)
[2017-10-11] MEDS: DOCUSATE SODIUM 100 MG CAPSULE PO SCH (08:35)
[2017-10-11] MEDS: MULTIVITAMIN (BEROCCA) TABLET PO SCH (10:10)
[2017-10-11] MEDS ORDERED: TOBRAMYCIN INJ 160 MG in SODIUM CHLORIDE 0.9% 100 ML IV ONE (15:00)
[2017-10-11] MEDS: ENOXAPARIN 30 MG/0.3 ML SYRINGE SUBCUT SCH (17:25)
[2017-10-11] MEDS: ONDANSETRON 4 MG/2 ML VIAL IV PRN (17:30)
[2017-10-11] MEDS: LEVOFLOXACIN INJ 500 MG in PREMIX 1 EACH IV SCH (17:31)
[2017-10-12] MEDS: ONDANSETRON 4 MG/2 ML VIAL IV PRN ×2 (00:03→08:03)
[2017-10-12] MEDS: ACETAMINOPHEN 325 MG TABLET PO PRN (00:03)
[2017-10-12 06:45] LABS: Basophils % 0.2 % (0.0-0.8); Eosinophils # 0.8 10*3/uL (0.0-0.87); Eosinophils % 8.3 % (0.00-10.9); Hematocrit 32.3 VOL% (35.7-47.0); Hemoglobin 10.4 GM/DL (12.0-16.0); Immature Granulocytes % 0.7 %; Immature Granulocytes Absolute 0.06 #; Lymphocytes # 1.2 10*3/uL (1.4-4.0); Lymphocytes % 12.6 % (21.3-54.2); Mean Corpuscular HGB Conc 32.2 GM/DL (32-36); Mean Corpuscular Hemoglobin 27 PG (27-34); Mean Platelet Volume 12.1 FL (9.6-12.0); Monocytes # 0.7 10*3/uL (0.11-0.8); Monocytes % 7.2 % (1.7-12.7); Neutrophils # 6.5 10*3/uL (1.4-7.4); Platelet Count 156 T/CUMM (130-400); Red Cell Distribution Width 18.1 % (9.3-17.3); White Blood Count 9.1 T/CUMM (4-12)
[2017-10-12 07:26] LABS: Calcium 8.1 MG/DL (8.5-10.1); Potassium 5.4 MMOL/L (3.5-5.1)
[2017-10-12] MEDS: CALCIUM ACETATE 667 MG CAPSULE PO SCH ×4 (08:05→16:33)
[2017-10-12] MEDS: MULTIVITAMIN (BEROCCA) TABLET PO SCH (08:06)
[2017-10-12] MEDS: ASPIRIN EC 81 MG TABLET PO SCH (08:06)
[2017-10-12] MEDS: PANTOPRAZOLE 40 MG TABLET PO SCH (08:06)
[2017-10-12] MEDS: GABAPENTIN 100 MG CAPSULE PO SCH ×2 (08:06→21:01)
[2017-10-12] MEDS: MIDODRINE 5 MG TABLET PO SCH ×3 (08:06→21:00)
[2017-10-12] MEDS: DOCUSATE SODIUM 100 MG CAPSULE PO SCH (08:06)
[2017-10-12] MEDS: CYANOCOBALAMIN 500 MCG TABLET PO SCH (08:06)
[2017-10-12] MEDS: ENOXAPARIN 30 MG/0.3 ML SYRINGE SUBCUT SCH (17:59)
[2017-10-13 07:07] LABS: Basophils % 0.2 % (0.0-0.8); Eosinophils # 0.8 10*3/uL (0.0-0.87); Eosinophils % 9.3 % (0.00-10.9); Hematocrit 30.9 VOL% (35.7-47.0); Immature Granulocytes % 0.9 %; Immature Granulocytes Absolute 0.07 #; Lymphocytes # 1.4 10*3/uL (1.4-4.0); Lymphocytes % 16.8 % (21.3-54.2); Mean Corpuscular HGB Conc 32.4 GM/DL (32-36); Mean Corpuscular Hemoglobin 27 PG (27-34); Mean Corpuscular Volume 84.4 FL (87-102); Mean Platelet Volume 11.6 FL (9.6-12.0); Monocytes # 0.8 10*3/uL (0.11-0.8); Monocytes % 9.3 % (1.7-12.7); Neutrophils # 5.2 10*3/uL (1.4-7.4); Neutrophils % 63.5 % (38.7-73.9); Platelet Count 190 T/CUMM (130-400); Red Blood Count 3.66 MC/CUMM (3.8-5.5); Red Cell Distribution Width 18.1 % (9.3-17.3); White Blood Count 8.2 T/CUMM (4-12)
[2017-10-13 07:32] LABS: Calcium 8.1 MG/DL (8.5-10.1); Osmolality,Calculated 286.1 MOS/KG (273-304)
[2017-10-13 07:38] LABS: Potassium 6.1 MMOL/L (3.5-5.1)
[2017-10-13] MEDS: GABAPENTIN 100 MG CAPSULE PO SCH ×2 (09:15→20:34)
[2017-10-13] MEDS: CALCIUM ACETATE 667 MG CAPSULE PO SCH ×3 (09:15→17:05)
[2017-10-13] MEDS: DOCUSATE SODIUM 100 MG CAPSULE PO SCH (09:16)
[2017-10-13] MEDS: MIDODRINE 5 MG TABLET PO SCH ×3 (09:16→20:34)
[2017-10-13] MEDS: PANTOPRAZOLE 40 MG TABLET PO SCH (09:16)
[2017-10-13] MEDS: ASPIRIN EC 81 MG TABLET PO SCH (09:16)
[2017-10-13] MEDS: MULTIVITAMIN (BEROCCA) TABLET PO SCH (09:16)
[2017-10-13] MEDS: CYANOCOBALAMIN 500 MCG TABLET PO SCH (09:16)
[2017-10-13] MEDS: ONDANSETRON 4 MG/2 ML VIAL IV PRN (11:21)
[2017-10-13] MEDS: ENOXAPARIN 30 MG/0.3 ML SYRINGE SUBCUT SCH (17:05)
[2017-10-13] MEDS: LEVOFLOXACIN INJ 500 MG in PREMIX 1 EACH IV SCH (18:07)
[2017-10-14] MEDS: ONDANSETRON 4 MG/2 ML VIAL IV PRN (00:34)
[2017-10-14 05:39] LABS: Basophils % 0.5 % (0.0-0.8); Eosinophils # 0.7 10*3/uL (0.0-0.87); Eosinophils % 8.9 % (0.00-10.9); Hematocrit 30.7 VOL% (35.7-47.0); Immature Granulocytes % 0.9 %; Immature Granulocytes Absolute 0.07 #; Lymphocytes # 1.3 10*3/uL (1.4-4.0); Lymphocytes % 17.6 % (21.3-54.2); Mean Corpuscular HGB Conc 32.6 GM/DL (32-36); Mean Corpuscular Hemoglobin 27 PG (27-34); Mean Corpuscular Volume 82.7 FL (87-102); Mean Platelet Volume 11.2 FL (9.6-12.0); Monocytes # 0.6 10*3/uL (0.11-0.8); Monocytes % 7.4 % (1.7-12.7); Neutrophils # 4.9 10*3/uL (1.4-7.4); Neutrophils % 64.7 % (38.7-73.9); Platelet Count 214 T/CUMM (130-400); Red Blood Count 3.71 MC/CUMM (3.8-5.5); Red Cell Distribution Width 18.1 % (9.3-17.3); White Blood Count 7.6 T/CUMM (4-12)
[2017-10-14 06:06] LABS: Calcium 8.3 MG/DL (8.5-10.1)
[2017-10-14 06:11] LABS: Potassium 6.4 MMOL/L (3.5-5.1)
[2017-10-14] MEDS: CALCIUM ACETATE 667 MG CAPSULE PO SCH ×3 (08:09→17:24)
[2017-10-14] MEDS ORDERED: IRON SUCROSE 100 MG/5 ML VIAL IV PRN (10:23)
[2017-10-14] MEDS: MIDODRINE 5 MG TABLET PO SCH ×3 (14:03→19:59)
[2017-10-14] MEDS: MULTIVITAMIN (BEROCCA) TABLET PO SCH (14:12)
[2017-10-14] MEDS: GABAPENTIN 100 MG CAPSULE PO SCH ×2 (14:12→19:59)
[2017-10-14] MEDS: ASPIRIN EC 81 MG TABLET PO SCH (14:13)
[2017-10-14] MEDS: CYANOCOBALAMIN 500 MCG TABLET PO SCH (14:13)
[2017-10-14] MEDS: DOCUSATE SODIUM 100 MG CAPSULE PO SCH (14:14)
[2017-10-14] MEDS: PANTOPRAZOLE 40 MG TABLET PO SCH (14:18)
[2017-10-14] MEDS ORDERED: TOBRAMYCIN INJ 160 MG in SODIUM CHLORIDE 0.9% 100 ML IV PRN (15:00)
[2017-10-14] MEDS: ENOXAPARIN 30 MG/0.3 ML SYRINGE SUBCUT SCH (17:22)
[2017-10-15] MEDS: CALCIUM ACETATE 667 MG CAPSULE PO SCH ×3 (08:36→17:12)
[2017-10-15] MEDS: MIDODRINE 5 MG TABLET PO SCH ×3 (08:36→21:30)
[2017-10-15] MEDS: MULTIVITAMIN (BEROCCA) TABLET PO SCH (08:36)
[2017-10-15] MEDS: ASPIRIN EC 81 MG TABLET PO SCH (08:36)
[2017-10-15] MEDS: CYANOCOBALAMIN 500 MCG TABLET PO SCH (08:36)
[2017-10-15] MEDS: DOCUSATE SODIUM 100 MG CAPSULE PO SCH (08:36)
[2017-10-15] MEDS: PANTOPRAZOLE 40 MG TABLET PO SCH (08:37)
[2017-10-15] MEDS: GABAPENTIN 100 MG CAPSULE PO SCH ×2 (08:37→21:30)
[2017-10-15] MEDS ORDERED: TOBRAMYCIN INJ 160 MG in SODIUM CHLORIDE 0.9% 100 ML IV ONE (09:30)
[2017-10-15] MEDS: ENOXAPARIN 30 MG/0.3 ML SYRINGE SUBCUT SCH (17:12)
[2017-10-15] MEDS: LEVOFLOXACIN INJ 500 MG in PREMIX 1 EACH IV SCH (19:31)
[2017-10-16 07:07] VITALS: BP 105/64
[2017-10-16] MEDS: CALCIUM ACETATE 667 MG CAPSULE PO SCH ×2 (13:10→13:15)
[2017-10-16] MEDS: GABAPENTIN 100 MG CAPSULE PO SCH (13:10)
[2017-10-16] MEDS: MULTIVITAMIN (BEROCCA) TABLET PO SCH (13:10)
[2017-10-16] MEDS: MIDODRINE 5 MG TABLET PO SCH (13:11)
[2017-10-16] MEDS: CYANOCOBALAMIN 500 MCG TABLET PO SCH (13:11)
[2017-10-16] MEDS: ASPIRIN EC 81 MG TABLET PO SCH (13:11)
[2017-10-16] MEDS: PANTOPRAZOLE 40 MG TABLET PO SCH (13:12)
[2017-10-16] MEDS: ONDANSETRON 4 MG/2 ML VIAL IV PRN (13:14)
[2017-10-16] MEDS: DOCUSATE SODIUM 100 MG CAPSULE PO SCH (13:14)
[2017-10-16] MEDS ORDERED: TOBRAMYCIN INJ 160 MG in SODIUM CHLORIDE 0.9% 100 ML IV ONE (15:00)
== END 2017-10-16 14:40 | disposition home or self-care (01) | DRG 193 ==
LOC: N.ED 15:35 → N.EDINP 17:55 → N.5E 23:21

== ENCOUNTER 2018-07-03 04:26 | Inpatient (IN) ==
[2018-07-03] MEDS ORDERED: ACETAMINOPHEN 500 MG TABLET PO STA (04:42)
[2018-07-03] MEDS ORDERED: ACETAMINOPHEN 500 MG TABLET ONE (04:43)
[2018-07-03] MEDS ORDERED: CEFEPIME 2,000 MG in SODIUM CHLORIDE 0.9% 100 ML IV STA (05:11)
[2018-07-03] MEDS ORDERED: VANCOMYCIN INJ 1,000 MG in SODIUM CHLORIDE 0.9% 250 ML IV STA (05:12)
[2018-07-03] MEDS ORDERED: KETOROLAC 30 MG/1 ML VIAL IV STA (05:13)
[2018-07-03 06:13] LABS: Basophils % 0.1 % (0.0-0.8); Eosinophils # 0.1 10*3/uL (0.0-0.87); Eosinophils % 0.8 % (0.00-10.9); Hematocrit 29.9 VOL% (35.7-47.0); Hemoglobin 10.1 GM/DL (12.0-16.0); Immature Granulocytes % 0.4 %; Immature Granulocytes Absolute 0.04 #; Lymphocytes # 0.5 10*3/uL (1.4-4.0); Lymphocytes % 4.6 % (21.3-54.2); Mean Corpuscular HGB Conc 33.8 GM/DL (32-36); Mean Corpuscular Hemoglobin 31 PG (27-34); Mean Corpuscular Volume 90.3 FL (87-102); Mean Platelet Volume 10.7 FL (9.6-12.0); Monocytes # 0.9 10*3/uL (0.11-0.8); Monocytes % 8.3 % (1.7-12.7); Neutrophils # 9.1 10*3/uL (1.4-7.4); Neutrophils % 85.8 % (38.7-73.9); Platelet Count 254 T/CUMM (130-400); Red Blood Count 3.31 MC/CUMM (3.8-5.5); Red Cell Distribution Width 16.1 % (9.3-17.3); White Blood Count 10.6 T/CUMM (4-12)
[2018-07-03 06:31] LABS: Band Neutrophils 1 % (0-10); Hypochromasia 1+; Lymphocytes 7 % (20-55); Microcytosis 1+; Segmented Neutrophils 81 % (50-85); Tear Drop Cells Slight; Total Cells Counted 100
[2018-07-03 06:32] LABS: Platelet Estimate Normal
[2018-07-03 06:37] LABS: Bilirubin,Total 0.8 MG/DL (0.2-1.0); Calcium 7.6 MG/DL (8.5-10.1); Osmolality,Calculated 278.1 MOS/KG (273-304); Potassium 4.5 MMOL/L (3.5-5.1); Total Protein 7.4 G/DL (6.4-8.3)
[2018-07-03] MEDS ORDERED: DOCUSATE SODIUM 100 MG CAPSULE PO PRN (09:53)
[2018-07-03] MEDS ORDERED: ACETAMINOPHEN 325 MG TABLET PO PRN (09:53)
[2018-07-03] MEDS ORDERED: ONDANSETRON 4 MG/2 ML VIAL IV PRN (09:53)
[2018-07-03] MEDS: ENOXAPARIN 30 MG/0.3 ML SYRINGE SUBCUT SCH (11:46)
[2018-07-03] MEDS: PANTOPRAZOLE 40 MG TABLET PO SCH (11:47)
[2018-07-03] MEDS ORDERED: LEVOFLOXACIN INJ 750 MG in PREMIX 1 EACH IV SCH (12:00)
[2018-07-03] MEDS ORDERED: VANCOMYCIN INJ 500 MG in SODIUM CHLORIDE 0.9% 100 ML IV ONE (13:00)
[2018-07-03] MEDS ORDERED: EPOETIN ALFA 10,000 UNIT/1 ML VIAL IV PRN (14:37)
[2018-07-03] MEDS ORDERED: DICYCLOMINE 20 MG TABLET PO PRN (15:42)
[2018-07-03] MEDS ORDERED: PROMETHAZINE 25 MG TABLET PO PRN (15:42)
[2018-07-03] MEDS ORDERED: CALCIUM ACETATE 667 MG CAPSULE PO SCH (16:00)
[2018-07-03] MEDS ORDERED: DOCUSATE SODIUM 100 MG/10 ML UDCUP PO SCH (16:00)
[2018-07-03] MEDS: CALCIUM ACETATE 667 MG CAPSULE PO SCH (16:43)
[2018-07-03] MEDS: POLYETHYLENE GLYCOL POWDER 17 GM PACK PO SCH (16:43)
[2018-07-03] MEDS: CYANOCOBALAMIN 500 MCG TABLET PO SCH (16:44)
[2018-07-03] MEDS: GABAPENTIN 100 MG CAPSULE PO SCH (16:44)
[2018-07-03] MEDS: ChlordiazePOXIDE/CLIDINIUM 5-2.5 MG CAPSULE PO SCH (16:52)
[2018-07-03] MEDS: MIDODRINE 5 MG TABLET PO SCH (21:08)
[2018-07-03] MEDS: DOCUSATE SODIUM 100 MG CAPSULE PO SCH (21:09)
[2018-07-04] MEDS: ChlordiazePOXIDE/CLIDINIUM 5-2.5 MG CAPSULE PO SCH ×3 (00:24→17:14)
[2018-07-04] MEDS: CYANOCOBALAMIN 500 MCG TABLET PO SCH (08:38)
[2018-07-04] MEDS: MIDODRINE 5 MG TABLET PO SCH ×3 (08:38→21:09)
[2018-07-04] MEDS: DOCUSATE SODIUM 100 MG CAPSULE PO SCH ×2 (08:39→21:09)
[2018-07-04] MEDS: ASPIRIN EC 81 MG TABLET PO SCH (08:39)
[2018-07-04] MEDS: CALCIUM ACETATE 667 MG CAPSULE PO SCH ×3 (08:39→17:14)
[2018-07-04] MEDS: GABAPENTIN 100 MG CAPSULE PO SCH (08:39)
[2018-07-04] MEDS: POLYETHYLENE GLYCOL POWDER 17 GM PACK PO SCH (08:39)
[2018-07-04] MEDS: PANTOPRAZOLE 40 MG TABLET PO SCH (08:39)
[2018-07-04 09:21] LABS: Basophils % 0.2 % (0.0-0.8); Eosinophils # 0.4 10*3/uL (0.0-0.87); Eosinophils % 4.7 % (0.00-10.9); Hematocrit 29.9 VOL% (35.7-47.0); Hemoglobin 9.9 GM/DL (12.0-16.0); Immature Granulocytes % 0.4 %; Immature Granulocytes Absolute 0.04 #; Lymphocytes # 0.7 10*3/uL (1.4-4.0); Lymphocytes % 7.5 % (21.3-54.2); Mean Corpuscular HGB Conc 33.1 GM/DL (32-36); Mean Corpuscular Hemoglobin 30 PG (27-34); Mean Corpuscular Volume 90.6 FL (87-102); Mean Platelet Volume 10.7 FL (9.6-12.0); Monocytes # 0.9 10*3/uL (0.11-0.8); Monocytes % 10.2 % (1.7-12.7); Platelet Count 264 T/CUMM (130-400); Red Cell Distribution Width 16.2 % (9.3-17.3); White Blood Count 9.2 T/CUMM (4-12)
[2018-07-04 09:47] LABS: Albumin 2.8 G/DL (3.4-5.0); Bilirubin,Total 0.6 MG/DL (0.2-1.0); Calcium 7.6 MG/DL (8.5-10.1); Osmolality,Calculated 283.2 MOS/KG (273-304); Potassium 4.7 MMOL/L (3.5-5.1); Total Protein 7.4 G/DL (6.4-8.3)
[2018-07-04] MEDS: ENOXAPARIN 30 MG/0.3 ML SYRINGE SUBCUT SCH (11:40)
[2018-07-04] MEDS ORDERED: VANCOMYCIN INJ 750 MG in SODIUM CHLORIDE 0.9% 250 ML IV ONE (16:00)
[2018-07-05] MEDS: ChlordiazePOXIDE/CLIDINIUM 5-2.5 MG CAPSULE PO SCH ×3 (06:37→22:15)
[2018-07-05] MEDS: CYANOCOBALAMIN 500 MCG TABLET PO SCH (09:29)
[2018-07-05] MEDS: MIDODRINE 5 MG TABLET PO SCH ×3 (09:30→20:55)
[2018-07-05] MEDS: DOCUSATE SODIUM 100 MG CAPSULE PO SCH ×2 (09:31→20:56)
[2018-07-05] MEDS: PANTOPRAZOLE 40 MG TABLET PO SCH (09:31)
[2018-07-05] MEDS: CALCIUM ACETATE 667 MG CAPSULE PO SCH ×3 (09:31→17:05)
[2018-07-05] MEDS: GABAPENTIN 100 MG CAPSULE PO SCH (09:31)
[2018-07-05] MEDS: ASPIRIN EC 81 MG TABLET PO SCH (09:32)
[2018-07-05] MEDS: POLYETHYLENE GLYCOL POWDER 17 GM PACK PO SCH (09:32)
[2018-07-05] MEDS: LEVOFLOXACIN INJ 500 MG in PREMIX 1 EACH IV SCH (15:03)
[2018-07-05] MEDS: ENOXAPARIN 30 MG/0.3 ML SYRINGE SUBCUT SCH (15:03)
[2018-07-05] MEDS ORDERED: VANCOMYCIN INJ 750 MG in SODIUM CHLORIDE 0.9% 250 ML IV PRN (18:00)
[2018-07-06 05:13] LABS: Basophils % 0.3 % (0.0-0.8); Eosinophils # 0.4 10*3/uL (0.0-0.87); Eosinophils % 3.4 % (0.00-10.9); Hematocrit 25.8 VOL% (35.7-47.0); Hemoglobin 8.3 GM/DL (12.0-16.0); Immature Granulocytes % 1.2 %; Immature Granulocytes Absolute 0.14 #; Lymphocytes # 1.3 10*3/uL (1.4-4.0); Lymphocytes % 10.8 % (21.3-54.2); Mean Corpuscular HGB Conc 32.2 GM/DL (32-36); Mean Corpuscular Hemoglobin 29 PG (27-34); Mean Corpuscular Volume 89.9 FL (87-102); Mean Platelet Volume 10.5 FL (9.6-12.0); Monocytes # 1.2 10*3/uL (0.11-0.8); Monocytes % 9.9 % (1.7-12.7); Neutrophils # 8.6 10*3/uL (1.4-7.4); Neutrophils % 74.4 % (38.7-73.9); Platelet Count 291 T/CUMM (130-400); Red Blood Count 2.87 MC/CUMM (3.8-5.5); White Blood Count 11.6 T/CUMM (4-12)
[2018-07-06 05:37] LABS: Potassium 5.6 MMOL/L (3.5-5.1)
[2018-07-06] MEDS: ChlordiazePOXIDE/CLIDINIUM 5-2.5 MG CAPSULE PO SCH ×3 (07:20→21:07)
[2018-07-06] MEDS: CYANOCOBALAMIN 500 MCG TABLET PO SCH (08:32)
[2018-07-06] MEDS: CALCIUM ACETATE 667 MG CAPSULE PO SCH ×3 (08:33→16:20)
[2018-07-06] MEDS: MIDODRINE 5 MG TABLET PO SCH ×3 (08:33→20:42)
[2018-07-06] MEDS: PANTOPRAZOLE 40 MG TABLET PO SCH (08:33)
[2018-07-06] MEDS: ASPIRIN EC 81 MG TABLET PO SCH (08:34)
[2018-07-06] MEDS: DOCUSATE SODIUM 100 MG CAPSULE PO SCH ×2 (08:34→20:42)
[2018-07-06] MEDS: POLYETHYLENE GLYCOL POWDER 17 GM PACK PO SCH (08:34)
[2018-07-06] MEDS: GABAPENTIN 100 MG CAPSULE PO SCH (08:34)
[2018-07-06] MEDS: ENOXAPARIN 30 MG/0.3 ML SYRINGE SUBCUT SCH (12:29)
[2018-07-07] MEDS: ChlordiazePOXIDE/CLIDINIUM 5-2.5 MG CAPSULE PO SCH ×3 (06:20→21:42)
[2018-07-07 07:40] LABS: Basophils % 0.4 % (0.0-0.8); Eosinophils # 0.7 10*3/uL (0.0-0.87); Eosinophils % 6.7 % (0.00-10.9); Hematocrit 26.7 VOL% (35.7-47.0); Immature Granulocytes % 3.1 %; Immature Granulocytes Absolute 0.34 #; Lymphocytes # 1.3 10*3/uL (1.4-4.0); Lymphocytes % 12.3 % (21.3-54.2); Mean Corpuscular HGB Conc 33.7 GM/DL (32-36); Mean Corpuscular Hemoglobin 30 PG (27-34); Mean Corpuscular Volume 88.4 FL (87-102); Mean Platelet Volume 10.3 FL (9.6-12.0); Monocytes # 0.7 10*3/uL (0.11-0.8); Monocytes % 6.6 % (1.7-12.7); Neutrophils # 7.7 10*3/uL (1.4-7.4); Neutrophils % 70.9 % (38.7-73.9); Platelet Count 355 T/CUMM (130-400); Red Blood Count 3.02 MC/CUMM (3.8-5.5); Red Cell Distribution Width 16.2 % (9.3-17.3); White Blood Count 10.8 T/CUMM (4-12)
[2018-07-07] MEDS: CALCIUM ACETATE 667 MG CAPSULE PO SCH ×3 (08:32→16:10)
[2018-07-07] MEDS: MIDODRINE 5 MG TABLET PO SCH ×3 (08:33→21:42)
[2018-07-07] MEDS: GABAPENTIN 100 MG CAPSULE PO SCH (08:33)
[2018-07-07] MEDS: DOCUSATE SODIUM 100 MG CAPSULE PO SCH ×2 (08:33→21:42)
[2018-07-07] MEDS: PANTOPRAZOLE 40 MG TABLET PO SCH (08:33)
[2018-07-07] MEDS: CYANOCOBALAMIN 500 MCG TABLET PO SCH (08:33)
[2018-07-07] MEDS: ASPIRIN EC 81 MG TABLET PO SCH (08:34)
[2018-07-07] MEDS: POLYETHYLENE GLYCOL POWDER 17 GM PACK PO SCH (08:34)
[2018-07-07] MEDS ORDERED: INFLUENZA VIRUS VACCINE 0.5 ML SYRINGE IM ONE (11:30)
[2018-07-07] MEDS: ENOXAPARIN 30 MG/0.3 ML SYRINGE SUBCUT SCH (13:39)
[2018-07-07] MEDS: LEVOFLOXACIN INJ 500 MG in PREMIX 1 EACH IV SCH (13:46)
[2018-07-08] MEDS: ChlordiazePOXIDE/CLIDINIUM 5-2.5 MG CAPSULE PO SCH (05:41)
[2018-07-08 07:29] VITALS: BP 118/67
[2018-07-08] MEDS: CALCIUM ACETATE 667 MG CAPSULE PO SCH (08:56)
[2018-07-08] MEDS: CYANOCOBALAMIN 500 MCG TABLET PO SCH (09:31)
[2018-07-08] MEDS: ASPIRIN EC 81 MG TABLET PO SCH (09:32)
[2018-07-08] MEDS: POLYETHYLENE GLYCOL POWDER 17 GM PACK PO SCH (09:32)
[2018-07-08] MEDS: GABAPENTIN 100 MG CAPSULE PO SCH (09:32)
[2018-07-08] MEDS: DOCUSATE SODIUM 100 MG CAPSULE PO SCH (09:32)
[2018-07-08] MEDS: PANTOPRAZOLE 40 MG TABLET PO SCH (09:32)
[2018-07-08] MEDS: MIDODRINE 5 MG TABLET PO SCH (09:32)
== END 2018-07-08 10:49 | disposition home or self-care (01) | DRG 441 ==
LOC: N.ED 04:26 → SUATTDRO 09:21 → N.EDINP 09:21 → N.2W 10:08 → N.2E 15:19
PROVIDERS: ADMIT Internal Medicine; ATTEND Internal Medicine Geriatric Medicine

== ENCOUNTER 2019-08-16 16:34 | Inpatient (IN) ==
[2019-08-16] MEDS ORDERED: METOCLOPRAMIDE 10 MG/2 ML VIAL IM STA (18:23)
[2019-08-16] MEDS ORDERED: DICYCLOMINE 20 MG/2 ML AMP IM ONE (18:23)
[2019-08-16 18:57] LABS: Basophils % 0.3 % (0.0-0.8); Eosinophils # 0.5 10*3/uL (0.0-0.87); Eosinophils % 5.4 % (0.00-10.9); Hematocrit 32.5 VOL% (35.7-47.0); Hemoglobin 10.6 GM/DL (12.0-16.0); Immature Granulocytes % 0.3 %; Immature Granulocytes Absolute 0.03 #; Lymphocytes # 1.2 10*3/uL (1.4-4.0); Lymphocytes % 13.4 % (21.3-54.2); Mean Corpuscular HGB Conc 32.6 GM/DL (32-36); Mean Corpuscular Volume 88.8 FL (87-102); Mean Platelet Volume 11.3 FL (9.6-12.0); Monocytes % 6.1 % (1.7-12.7); Neutrophils % 74.5 % (38.7-73.9); Platelet Count 127 T/CUMM (130-400); Red Blood Count 3.66 MC/CUMM (3.8-5.5); Red Cell Distribution Width 16.3 % (9.3-17.3); White Blood Count 8.6 T/CUMM (4-12)
[2019-08-16 19:19] LABS: Albumin 3.9 G/DL (3.4-5.0); Bilirubin,Total 0.5 MG/DL (0.2-1.0); Calcium 7.9 MG/DL (8.5-10.1); Osmolality,Calculated 298.7 MOS/KG (273-304); Total Protein 7.8 G/DL (6.4-8.3)
[2019-08-16] MEDS ORDERED: ALBUTEROL NEB SOLN 5 MG/ML 20 ML/BOTTLE CONT NEB STA (19:37)
[2019-08-16] MEDS ORDERED: CALCIUM CHLORIDE 1,000 MG/10 ML SYRINGE IV STA (19:37)
[2019-08-16] MEDS ORDERED: HYDROmorphone 2 MG/1 ML VIAL IV STA (19:40)
[2019-08-16] MEDS ORDERED: NICOTINE 21 MG/24 HR PATCH TRANSDERM PRN (20:29)
[2019-08-16] MEDS ORDERED: PROMETHAZINE 25 MG/1 ML VIAL IM PRN (20:29)
[2019-08-16] MEDS: ONDANSETRON 4 MG/2 ML VIAL IV PRN (20:55)
[2019-08-16 21:28] LABS: Risk Ratio 4.38; VLDL CHOLESTEROL 31.4 MG/DL
[2019-08-16] MEDS ORDERED: DOCUSATE SODIUM 100 MG CAPSULE PO SCH (21:28)
[2019-08-16] MEDS ORDERED: MIDODRINE 5 MG TABLET PO SCH (21:28)
[2019-08-16] MEDS ORDERED: PANTOPRAZOLE 40 MG TABLET PO SCH (21:28)
[2019-08-16] MEDS ORDERED: CALCIUM ACETATE 667 MG CAPSULE PO SCH (21:28)
[2019-08-16 21:44] LABS: Osmolality,Calculated 298.8 MOS/KG (273-304)
[2019-08-16] MEDS ORDERED: MORPHINE 4 MG/1 ML VIAL IV ONE (22:31)
[2019-08-17] MEDS ORDERED: DICYCLOMINE 20 MG/2 ML AMP IM ONE (01:07)
[2019-08-17] MEDS: ONDANSETRON 4 MG/2 ML VIAL IV PRN ×3 (02:18→17:40)
[2019-08-17] MEDS ORDERED: NALOXONE 0.4 MG/ML VIAL ONE (03:03)
[2019-08-17] MEDS ORDERED: LORazepam 2 MG/1 ML VIAL ONE ×3 (03:15→11:24)
[2019-08-17 03:38] LABS: Basophils % 0.2 % (0.0-0.8); Eosinophils % 0.2 % (0.00-10.9); Hematocrit 31.1 VOL% (35.7-47.0); Hemoglobin 10.1 GM/DL (12.0-16.0); Immature Granulocytes % 0.3 %; Immature Granulocytes Absolute 0.03 #; Lymphocytes # 0.5 10*3/uL (1.4-4.0); Lymphocytes % 5.5 % (21.3-54.2); Mean Corpuscular HGB Conc 32.5 GM/DL (32-36); Mean Corpuscular Volume 89.6 FL (87-102); Mean Platelet Volume 11.6 FL (9.6-12.0); Monocytes % 3.8 % (1.7-12.7); Platelet Count 134 T/CUMM (130-400); Red Blood Count 3.47 MC/CUMM (3.8-5.5); Red Cell Distribution Width 16.5 % (9.3-17.3); White Blood Count 9.7 T/CUMM (4-12)
[2019-08-17 03:59] LABS: Albumin 3.6 G/DL (3.4-5.0); Bilirubin,Total 0.4 MG/DL (0.2-1.0); Calcium 8.7 MG/DL (8.5-10.1); Osmolality,Calculated 302.7 MOS/KG (273-304); Total Protein 7.5 G/DL (6.4-8.3)
[2019-08-17] MEDS ORDERED: NALOXONE 0.4 MG/ML VIAL IV ONE (04:10)
[2019-08-17] MEDS ORDERED: LORazepam 2 MG/1 ML VIAL IV ONE (04:10)
[2019-08-17] MEDS ORDERED: SODIUM CHLORIDE 0.9% 250 ML IV ONE ×2 (04:17→22:22)
[2019-08-17] MEDS ORDERED: AZTREONAM 2,000 MG in SYRINGE 1 EACH IV ONE (05:00)
[2019-08-17] MEDS: metroNIDAZOLE INJ 500 MG in PREMIX 1 EACH IV SCH ×4 (05:50→21:31)
[2019-08-17] MEDS ORDERED: MORPHINE 4 MG/1 ML VIAL IV ONE (06:11)
[2019-08-17] MEDS ORDERED: CALCIUM ACETATE 667 MG CAPSULE PO SCH (08:00)
[2019-08-17] MEDS: HYDROmorphone 2 MG/1 ML VIAL IV PRN ×6 (08:19→22:12)
[2019-08-17] MEDS ORDERED: ASPIRIN EC 81 MG TABLET PO SCH (09:00)
[2019-08-17] MEDS: LORazepam 2 MG/1 ML VIAL IV PRN (11:27)
[2019-08-17] MEDS: AZTREONAM 500 MG in SYRINGE 1 EACH IV SCH ×2 (14:47→19:11)
[2019-08-18] MEDS ORDERED: SODIUM CHLORIDE 0.9% 250 ML IV ONE ×5 (00:45→08:47)
[2019-08-18] MEDS: AZTREONAM 500 MG in SYRINGE 1 EACH IV SCH ×5 (00:52→21:28)
[2019-08-18 00:58] LABS: Basophils % 0.2 % (0.0-0.8); Hemoglobin 11.3 GM/DL (12.0-16.0); Immature Granulocytes % 0.3 %; Immature Granulocytes Absolute 0.03 #; Lymphocytes # 0.7 10*3/uL (1.4-4.0); Lymphocytes % 5.7 % (21.3-54.2); Mean Corpuscular HGB Conc 33.2 GM/DL (32-36); Mean Platelet Volume 11.7 FL (9.6-12.0); Monocytes % 5.6 % (1.7-12.7); Neutrophils % 88.2 % (38.7-73.9); Platelet Count 154 T/CUMM (130-400); Red Blood Count 3.82 MC/CUMM (3.8-5.5); Red Cell Distribution Width 16.6 % (9.3-17.3); White Blood Count 11.6 T/CUMM (4-12)
[2019-08-18 01:00] LABS: Blood Urea Nitrogen 56 MG/DL (7-18); Calcium 7.9 MG/DL (8.5-10.1); Estimated Glom Filtration Rate 5 ML/MIN; Glucose 99 MG/DL (74-106); Osmolality,Calculated 285.1 MOS/KG (273-304)
[2019-08-18] MEDS ORDERED: SODIUM BICARBONATE 50 MEQ/50 ML VIAL IV ONE ×2 (01:23→01:33)
[2019-08-18] MEDS ORDERED: DEXTROSE 10% 250 ML IV ONE ×2 (01:36→04:27)
[2019-08-18] MEDS ORDERED: INSULIN REGULAR 100 UNIT/ML ONE (01:36)
[2019-08-18] MEDS: DEXTROSE 10% 250 ML BAG IV PRN ×2 (01:50→04:34)
[2019-08-18] MEDS: LORazepam 2 MG/1 ML VIAL IV PRN (02:04)
[2019-08-18] MEDS ORDERED: HYDROmorphone 2 MG/1 ML VIAL IV ONE (03:06)
[2019-08-18] MEDS ORDERED: INSULIN REGULAR 100 UNIT/ML IV ONE (03:30)
[2019-08-18 03:47] LABS: Basophils % 0.1 % (0.0-0.8); Eosinophils % 0.1 % (0.00-10.9); Hematocrit 35.4 VOL% (35.7-47.0); Hemoglobin 11.1 GM/DL (12.0-16.0); Immature Granulocytes % 0.3 %; Immature Granulocytes Absolute 0.03 #; Lymphocytes # 0.5 10*3/uL (1.4-4.0); Lymphocytes % 4.8 % (21.3-54.2); Mean Corpuscular HGB Conc 31.4 GM/DL (32-36); Mean Corpuscular Volume 93.9 FL (87-102); Mean Platelet Volume 11.3 FL (9.6-12.0); Neutrophils % 88.7 % (38.7-73.9); Platelet Count 124 T/CUMM (130-400); Red Blood Count 3.77 MC/CUMM (3.8-5.5); Red Cell Distribution Width 17.2 % (9.3-17.3); White Blood Count 10.7 T/CUMM (4-12)
[2019-08-18 04:31] LABS: Calcium 7.5 MG/DL (8.5-10.1); Osmolality,Calculated 297.1 MOS/KG (273-304)
[2019-08-18 04:33] LABS: Band Neutrophils 2 % (0-10); Lymphocytes 9 % (20-55); Segmented Neutrophils 88 % (50-85); Total Cells Counted 100
[2019-08-18 04:34] LABS: Anisocytosis 1+; Platelet Estimate Adequate; Tear Drop Cells Few
[2019-08-18] MEDS: metroNIDAZOLE INJ 500 MG in PREMIX 1 EACH IV SCH ×2 (05:29→16:32)
[2019-08-18] MEDS ORDERED: CLINDAMYCIN INJ 900 MG in PREMIX 1 EACH IV ONE ×2 (06:43→07:30)
[2019-08-18] MEDS ORDERED: BUPIVACAINE MPF 0.25% 30 ML VIAL ONE (07:02)
[2019-08-18] MEDS ORDERED: LIDOCAINE 1%/EPI INJ 20 ML VIAL ONE (07:02)
[2019-08-18] MEDS ORDERED: CLINDAMYCIN INJ 0 ML IV ONE (07:16)
[2019-08-18] MEDS ORDERED: NOREPINEPHRINE 4 MG/4 ML VIAL IV ONE (08:46)
[2019-08-18] MEDS ORDERED: LIDOCAINE 2% 5 ML VIAL ONE (08:46)
[2019-08-18] MEDS ORDERED: PROPOFOL 200 MG/20 ML VIAL IV ONE (08:46)
[2019-08-18] MEDS ORDERED: MIDAZOLAM 2 MG/2 ML VIAL ONE (08:46)
[2019-08-18] MEDS ORDERED: SEVOFLURANE 1 UNIT/15 MINUTE INH ONE (08:46)
[2019-08-18] MEDS ORDERED: fentaNYL 100 MCG/2 ML VIAL ONE (08:46)
[2019-08-18] MEDS ORDERED: HEPARIN/NACL 0.9% 2 UNITS/ML 500 ML IV ONE (08:46)
[2019-08-18] MEDS ORDERED: ETOMIDATE 40 MG/20 ML VIAL IV ONE (08:47)
[2019-08-18] MEDS ORDERED: ROCURONIUM 100 MG/10 ML VIAL IV ONE (08:47)
[2019-08-18 10:13] LABS: Basophils % 0.1 % (0.0-0.8); Hematocrit 28.6 VOL% (35.7-47.0); Hemoglobin 9.4 GM/DL (12.0-16.0); Immature Granulocytes % 0.4 %; Immature Granulocytes Absolute 0.05 #; Lymphocytes # 0.7 10*3/uL (1.4-4.0); Lymphocytes % 6.3 % (21.3-54.2); Mean Corpuscular HGB Conc 32.9 GM/DL (32-36); Mean Corpuscular Volume 88.5 FL (87-102); Mean Platelet Volume 11.2 FL (9.6-12.0); Neutrophils % 87.2 % (38.7-73.9); Platelet Count 152 T/CUMM (130-400); Red Blood Count 3.23 MC/CUMM (3.8-5.5); Red Cell Distribution Width 16.4 % (9.3-17.3); White Blood Count 11.6 T/CUMM (4-12)
[2019-08-18] MEDS: PANTOPRAZOLE 40 MG VIAL IV SCH (10:14)
[2019-08-18] MEDS: PROPOFOL 1,000 MG/100 ML BOTTLE IV SCH (10:22)
[2019-08-18 10:29] LABS: Calcium 6.9 MG/DL (8.5-10.1); Osmolality,Calculated 291.8 MOS/KG (273-304)
[2019-08-18 10:34] LABS: Band Neutrophils 57 % (0-10); Lymphocytes 6 % (20-55); Metamyelocytes 6 %; Myelocytes 1 %; Segmented Neutrophils 28 % (50-85); Total Cells Counted 100
[2019-08-18 10:35] LABS: Anisocytosis 1+; Platelet Estimate Normal; Target Cells Few
[2019-08-18 10:43] LABS: ABG Base Excess 2.8 MMOL/L (-2.5-2.5); ABG HCO3 27.1 MMOL/L (20-26); ABG PCO2 40.1 MM HG (35-48); ABG PH 7.447 (7.35-7.45); ABG PO2 117.5 MM HG (80-95); ABG TCO2 28.3 MMOL/L (23-27)
[2019-08-18] MEDS: NOREPINEPHRINE 16 MG in SODIUM CHLORIDE 0.9% 234 ML IV PRN (11:50)
[2019-08-18] MEDS: ALBUTEROL 1.25 MG/3 ML NEB RESP TX SCH ×2 (12:27→19:37)
[2019-08-18] MEDS ORDERED: SODIUM CHLORIDE 0.9% 500 ML IV ONE ×3 (16:37→21:38)
[2019-08-18] MEDS: HYDROmorphone 2 MG/1 ML VIAL IV PRN (19:30)
[2019-08-19] MEDS: NOREPINEPHRINE 16 MG in SODIUM CHLORIDE 0.9% 234 ML IV PRN ×2 (00:15→13:15)
[2019-08-19] MEDS: ALBUTEROL 1.25 MG/3 ML NEB RESP TX SCH ×2 (00:43→06:58)
[2019-08-19] MEDS: metroNIDAZOLE INJ 500 MG in PREMIX 1 EACH IV SCH ×2 (01:50→10:22)
[2019-08-19 03:31] LABS: ABG Base Excess -1.4 MMOL/L (-2.5-2.5); ABG HCO3 23.4 MMOL/L (20-26); ABG Oxygen Saturation 96.9 % (95-100); ABG PCO2 39.3 MM HG (35-48); ABG PH 7.392 (7.35-7.45); ABG PO2 163.1 MM HG (80-95); ABG TCO2 24.6 MMOL/L (23-27)
[2019-08-19] MEDS: AZTREONAM 500 MG in SYRINGE 1 EACH IV SCH (03:37)
[2019-08-19 03:41] LABS: Basophils % 0.2 % (0.0-0.8); Eosinophils # 0.1 10*3/uL (0.0-0.87); Eosinophils % 0.7 % (0.00-10.9); Hematocrit 23.1 VOL% (35.7-47.0); Hemoglobin 7.7 GM/DL (12.0-16.0); Immature Granulocytes % 0.6 %; Immature Granulocytes Absolute 0.07 #; Lymphocytes # 0.9 10*3/uL (1.4-4.0); Lymphocytes % 7.3 % (21.3-54.2); Mean Corpuscular HGB Conc 33.3 GM/DL (32-36); Mean Corpuscular Volume 89.2 FL (87-102); Mean Platelet Volume 11.2 FL (9.6-12.0); Neutrophils % 84.2 % (38.7-73.9); Platelet Count 147 T/CUMM (130-400); Red Blood Count 2.59 MC/CUMM (3.8-5.5); Red Cell Distribution Width 16.6 % (9.3-17.3); White Blood Count 12.3 T/CUMM (4-12)
[2019-08-19 03:56] LABS: Osmolality,Calculated 285.7 MOS/KG (273-304)
[2019-08-19] MEDS ORDERED: SODIUM CHLORIDE 0.9% 500 ML IV ONE (05:41)
[2019-08-19] MEDS ORDERED: SODIUM CHLORIDE 0.9% 1,000 ML IV ONE ×2 (06:30→18:08)
[2019-08-19] MEDS: PROPOFOL 1,000 MG/100 ML BOTTLE IV SCH ×2 (08:15→18:37)
[2019-08-19] MEDS ORDERED: GENTAMICIN INJ 120 MG in PREMIX 1 EACH IV PRN (08:35)
[2019-08-19] MEDS ORDERED: GENTAMICIN INJ 200 MG in SODIUM CHLORIDE 0.9% 100 ML IV ONE (09:00)
[2019-08-19] MEDS: PANTOPRAZOLE 40 MG VIAL IV SCH (09:40)
[2019-08-19] MEDS: MEROPENEM 500 MG in SODIUM CHLORIDE 0.9% 100 ML IV SCH (09:49)
[2019-08-19] MEDS: LORazepam 2 MG/1 ML VIAL IV PRN (10:11)
[2019-08-19 11:44] LABS: Basophils % 0.3 % (0.0-0.8); Eosinophils # 0.2 10*3/uL (0.0-0.87); Eosinophils % 2.5 % (0.00-10.9); Hematocrit 22.9 VOL% (35.7-47.0); Hemoglobin 7.5 GM/DL (12.0-16.0); Immature Granulocytes % 1.1 %; Immature Granulocytes Absolute 0.08 #; Lymphocytes # 0.7 10*3/uL (1.4-4.0); Lymphocytes % 9.5 % (21.3-54.2); Mean Corpuscular HGB Conc 32.8 GM/DL (32-36); Mean Corpuscular Volume 88.8 FL (87-102); Mean Platelet Volume 10.2 FL (9.6-12.0); Monocytes % 1.6 % (1.7-12.7); Platelet Count 133 T/CUMM (130-400); Red Blood Count 2.58 MC/CUMM (3.8-5.5); Red Cell Distribution Width 16.2 % (9.3-17.3); White Blood Count 7.6 T/CUMM (4-12)
[2019-08-19 12:06] LABS: Anisocytosis 1+; Band Neutrophils 27 % (0-10); Eosinophils 3 % (0-10); Lymphocytes 5 % (20-55); Macrocytosis Slight; Platelet Estimate Adequate; Segmented Neutrophils 65 % (50-85); Target Cells Few; Total Cells Counted 100
[2019-08-19 17:44] LABS: Basophils % 0.2 % (0.0-0.8); Eosinophils # 0.1 10*3/uL (0.0-0.87); Eosinophils % 0.9 % (0.00-10.9); Hematocrit 29.5 VOL% (35.7-47.0); Hemoglobin 9.8 GM/DL (12.0-16.0); Immature Granulocytes % 1.4 %; Immature Granulocytes Absolute 0.21 #; Lymphocytes # 0.7 10*3/uL (1.4-4.0); Lymphocytes % 4.6 % (21.3-54.2); Mean Corpuscular HGB Conc 33.2 GM/DL (32-36); Mean Corpuscular Volume 86.5 FL (87-102); Mean Platelet Volume 10.7 FL (9.6-12.0); Monocytes % 5.3 % (1.7-12.7); Neutrophils % 87.6 % (38.7-73.9); Platelet Count 148 T/CUMM (130-400); Red Blood Count 3.41 MC/CUMM (3.8-5.5); Red Cell Distribution Width 15.8 % (9.3-17.3); White Blood Count 15.3 T/CUMM (4-12)
[2019-08-19] MEDS: HYDROmorphone 2 MG/1 ML VIAL IV PRN ×2 (18:15→20:58)
[2019-08-19 18:53] LABS: Band Neutrophils 4 % (0-10); Eosinophils 1 % (0-10); Lymphocytes 3 % (20-55); Metamyelocytes 1 %; Segmented Neutrophils 87 % (50-85); Smudge Cells Few; Total Cells Counted 100
[2019-08-19 18:54] LABS: Burr Cells Few; Platelet Estimate Adequate
[2019-08-20] MEDS: HYDROmorphone 2 MG/1 ML VIAL IV PRN ×7 (00:40→22:02)
[2019-08-20] MEDS: NOREPINEPHRINE 16 MG in SODIUM CHLORIDE 0.9% 234 ML IV PRN ×2 (00:41→10:46)
[2019-08-20 04:03] LABS: Basophils % 0.3 % (0.0-0.8); Eosinophils # 0.6 10*3/uL (0.0-0.87); Eosinophils % 4.1 % (0.00-10.9); Hemoglobin 9.4 GM/DL (12.0-16.0); Immature Granulocytes Absolute 0.15 #; Lymphocytes # 1.2 10*3/uL (1.4-4.0); Lymphocytes % 8.3 % (21.3-54.2); Mean Corpuscular HGB Conc 33.6 GM/DL (32-36); Mean Corpuscular Volume 86.7 FL (87-102); Mean Platelet Volume 10.7 FL (9.6-12.0); Monocytes % 5.7 % (1.7-12.7); Neutrophils % 80.6 % (38.7-73.9); Platelet Count 156 T/CUMM (130-400); Red Blood Count 3.23 MC/CUMM (3.8-5.5); Red Cell Distribution Width 16.3 % (9.3-17.3); White Blood Count 14.5 T/CUMM (4-12)
[2019-08-20 04:06] LABS: ABG Base Excess -4.9 MMOL/L (-2.5-2.5); ABG HCO3 20.3 MMOL/L (20-26); ABG PH 7.346 (7.35-7.45); ABG PO2 185.4 MM HG (80-95); ABG TCO2 21.5 MMOL/L (23-27)
[2019-08-20 04:20] LABS: Calcium 6.3 MG/DL (8.5-10.1); Osmolality,Calculated 296.5 MOS/KG (273-304)
[2019-08-20] MEDS: PROPOFOL 1,000 MG/100 ML BOTTLE IV SCH ×3 (05:11→15:34)
[2019-08-20] MEDS ORDERED: SODIUM CHLORIDE 0.9% 1,000 ML IV ONE (06:40)
[2019-08-20] MEDS ORDERED: NOREPINEPHRINE 4 MG/4 ML VIAL IV ONE (08:01)
[2019-08-20] MEDS ORDERED: MIDAZOLAM 2 MG/2 ML VIAL ONE (08:46)
[2019-08-20] MEDS ORDERED: fentaNYL 100 MCG/2 ML VIAL ONE (08:46)
[2019-08-20] MEDS ORDERED: ROCURONIUM 100 MG/10 ML VIAL IV ONE (08:47)
[2019-08-20] MEDS ORDERED: SEVOFLURANE 1 UNIT/15 MINUTE INH ONE (08:47)
[2019-08-20] MEDS ORDERED: SODIUM CHLORIDE 0.9% 500 ML IV ONE (08:47)
[2019-08-20] MEDS ORDERED: PHENYLEPHRINE 1 MG/10 ML SYRINGE IV ONE (08:48)
[2019-08-20] MEDS: PANTOPRAZOLE 40 MG VIAL IV SCH (09:20)
[2019-08-20] MEDS: MEROPENEM 500 MG in SODIUM CHLORIDE 0.9% 100 ML IV SCH (09:29)
[2019-08-20] MEDS ORDERED: ALUMINUM/MAGNES/SIMETH MAX STR 30 ML UDCUP PO PRN (15:17)
[2019-08-20] MEDS: ONDANSETRON 4 MG/2 ML VIAL IV PRN (19:50)
[2019-08-20] MEDS ORDERED: diphenhydrAMINE CAP 25 MG CAPSULE PO PRN (23:18)
[2019-08-20] MEDS ORDERED: diphenhydrAMINE 50 MG/1 ML VIAL IV PRN (23:22)
[2019-08-21] MEDS: PROPOFOL 1,000 MG/100 ML BOTTLE IV SCH (00:24)
[2019-08-21] MEDS: HYDROmorphone 2 MG/1 ML VIAL IV PRN ×6 (01:09→20:18)
[2019-08-21 04:23] LABS: Basophils % 0.3 % (0.0-0.8); Eosinophils # 0.4 10*3/uL (0.0-0.87); Eosinophils % 2.8 % (0.00-10.9); Hematocrit 26.7 VOL% (35.7-47.0); Hemoglobin 8.7 GM/DL (12.0-16.0); Immature Granulocytes % 2.2 %; Immature Granulocytes Absolute 0.28 #; Lymphocytes # 0.8 10*3/uL (1.4-4.0); Lymphocytes % 6.6 % (21.3-54.2); Mean Corpuscular HGB Conc 32.6 GM/DL (32-36); Mean Corpuscular Volume 88.1 FL (87-102); Mean Platelet Volume 10.2 FL (9.6-12.0); Monocytes % 5.3 % (1.7-12.7); Neutrophils % 82.8 % (38.7-73.9); Platelet Count 200 T/CUMM (130-400); Red Blood Count 3.03 MC/CUMM (3.8-5.5); Red Cell Distribution Width 16.6 % (9.3-17.3); White Blood Count 12.5 T/CUMM (4-12)
[2019-08-21 04:32] LABS: ABG Base Excess -5.9 MMOL/L (-2.5-2.5); ABG HCO3 19.6 MMOL/L (20-26); ABG PCO2 40.6 MM HG (35-48); ABG PH 7.303 (7.35-7.45); ABG TCO2 18.3 MMOL/L (23-27)
[2019-08-21 04:50] LABS: Calcium 6.3 MG/DL (8.5-10.1); Osmolality,Calculated 295.1 MOS/KG (273-304)
[2019-08-21] MEDS: MEROPENEM 500 MG in SODIUM CHLORIDE 0.9% 100 ML IV SCH (07:59)
[2019-08-21] MEDS ORDERED: GENTAMICIN INJ 120 MG in PREMIX 1 EACH IV ONE (09:00)
[2019-08-21] MEDS: NOREPINEPHRINE 16 MG in SODIUM CHLORIDE 0.9% 234 ML IV PRN (09:52)
[2019-08-21] MEDS: PANTOPRAZOLE 40 MG VIAL IV SCH (09:57)
[2019-08-21] MEDS ORDERED: AMIODARONE INJ 150 MG in DEXTROSE 5% 100 ML IV ONE (10:50)
[2019-08-21] MEDS ORDERED: AMIODARONE 150 MG/3 ML VIAL ONE (10:51)
[2019-08-21] MEDS ORDERED: DILTIAZEM 25 MG/5 ML VIAL IV ONE (10:55)
[2019-08-21] MEDS ORDERED: DILTIAZEM 50 MG/10 ML VIAL IV ONE ×2 (10:55→11:45)
[2019-08-21] MEDS ORDERED: AMIODARONE 450 MG/9 ML VIAL IV ONE (10:58)
[2019-08-21] MEDS ORDERED: AMIODARONE INJ 450 MG in DEXTROSE 5% 241 ML IV SCH (11:00)
[2019-08-21] MEDS ORDERED: SODIUM CHLORIDE 0.9% 500 ML IV ONE (11:15)
[2019-08-21] MEDS ORDERED: DIGOXIN 0.5 MG/2 ML AMP IV ONE (11:16)
[2019-08-21] MEDS: KETOROLAC 30 MG/1 ML VIAL IV SCH ×2 (11:28→16:59)
[2019-08-21 13:12] LABS: Troponin I < 0.015 NG/ML (0.00-0.045)
[2019-08-21] MEDS: ONDANSETRON 4 MG/2 ML VIAL IV PRN (13:47)
[2019-08-21] MEDS: AMIODARONE INJ 450 MG in DEXTROSE 5% 241 ML IV SCH (18:15)
[2019-08-22] MEDS: KETOROLAC 30 MG/1 ML VIAL IV SCH ×5 (00:05→23:23)
[2019-08-22 04:30] LABS: Basophils % 0.5 % (0.0-0.8); Eosinophils # 0.7 10*3/uL (0.0-0.87); Eosinophils % 8.2 % (0.00-10.9); Hematocrit 22.4 VOL% (35.7-47.0); Hemoglobin 7.1 GM/DL (12.0-16.0); Immature Granulocytes % 6.3 %; Immature Granulocytes Absolute 0.52 #; Lymphocytes # 0.7 10*3/uL (1.4-4.0); Lymphocytes % 8.6 % (21.3-54.2); Mean Corpuscular HGB Conc 31.7 GM/DL (32-36); Mean Corpuscular Volume 91.8 FL (87-102); Mean Platelet Volume 9.9 FL (9.6-12.0); Monocytes % 5.5 % (1.7-12.7); Neutrophils % 70.9 % (38.7-73.9); Platelet Count 156 T/CUMM (130-400); Red Blood Count 2.44 MC/CUMM (3.8-5.5); Red Cell Distribution Width 16.6 % (9.3-17.3); White Blood Count 8.2 T/CUMM (4-12)
[2019-08-22 04:49] LABS: Osmolality,Calculated 297.3 MOS/KG (273-304)
[2019-08-22 05:12] LABS: Free T4 (Free Thyroxine) 1.01 NG/DL (0.76-1.46); Thyroid Stimulating Hormone 0.759 uIU/ml (0.358-3.74)
[2019-08-22 05:34] LABS: Band Neutrophils 2 % (0-10); Eosinophils 12 % (0-10); Lymphocytes 9 % (20-55); Metamyelocytes 2 %; Platelet Estimate Adequate; Segmented Neutrophils 66 % (50-85); Total Cells Counted 100
[2019-08-22 05:35] LABS: Acanthocytes Few; Calcium 5.6 MG/DL (8.5-10.1)
[2019-08-22] MEDS: ONDANSETRON 4 MG/2 ML VIAL IV PRN (06:24)
[2019-08-22] MEDS: MEROPENEM 500 MG in SODIUM CHLORIDE 0.9% 100 ML IV SCH (07:57)
[2019-08-22] MEDS: HYDROmorphone 2 MG/1 ML VIAL IV PRN ×4 (07:57→21:07)
[2019-08-22] MEDS: PANTOPRAZOLE 40 MG VIAL IV SCH (08:06)
[2019-08-22] MEDS ORDERED: AMIODARONE 200 MG TABLET PO SCH (09:00)
[2019-08-22] MEDS: AMIODARONE 200 MG TABLET PO SCH ×2 (10:05→21:07)
[2019-08-22] MEDS: AMIODARONE INJ 450 MG in DEXTROSE 5% 241 ML IV SCH (11:08)
[2019-08-22] MEDS ORDERED: GENTAMICIN INJ 100 MG in PREMIX 1 EACH IV PRN (11:52)
[2019-08-22] MEDS ORDERED: GENTAMICIN INJ 100 MG in PREMIX 1 EACH IV ONE (18:00)
[2019-08-23] MEDS: HYDROmorphone 2 MG/1 ML VIAL IV PRN ×2 (04:05→08:40)
[2019-08-23 04:45] LABS: Basophils % 0.4 % (0.0-0.8); Eosinophils # 0.5 10*3/uL (0.0-0.87); Hematocrit 28.6 VOL% (35.7-47.0); Hemoglobin 9.2 GM/DL (12.0-16.0); Immature Granulocytes Absolute 0.47 #; Lymphocytes # 0.5 10*3/uL (1.4-4.0); Lymphocytes % 7.9 % (21.3-54.2); Mean Corpuscular HGB Conc 32.2 GM/DL (32-36); Mean Corpuscular Volume 89.4 FL (87-102); Monocytes % 3.6 % (1.7-12.7); Neutrophils % 73.1 % (38.7-73.9); Platelet Count 180 T/CUMM (130-400); Red Cell Distribution Width 15.8 % (9.3-17.3); White Blood Count 6.7 T/CUMM (4-12)
[2019-08-23 05:06] LABS: Calcium 6.1 MG/DL (8.5-10.1); Osmolality,Calculated 290.3 MOS/KG (273-304)
[2019-08-23 05:24] LABS: Band Neutrophils 2 % (0-10); Eosinophils 7 % (0-10); Lymphocytes 10 % (20-55); Platelet Estimate Adequate; Segmented Neutrophils 76 % (50-85); Total Cells Counted 100
[2019-08-23 05:25] LABS: Hypochromasia 1+
[2019-08-23] MEDS: KETOROLAC 30 MG/1 ML VIAL IV SCH ×4 (05:50→23:24)
[2019-08-23] MEDS: AMIODARONE 200 MG TABLET PO SCH ×2 (08:39→20:35)
[2019-08-23] MEDS: MEROPENEM 500 MG in SODIUM CHLORIDE 0.9% 100 ML IV SCH (08:39)
[2019-08-23] MEDS: PANTOPRAZOLE 40 MG VIAL IV SCH (08:41)
[2019-08-23] MEDS ORDERED: HYDROmorphone 2 MG/1 ML VIAL IV PRN (10:21)
[2019-08-23] MEDS: ONDANSETRON 4 MG/2 ML VIAL IV PRN ×2 (12:40→23:27)
[2019-08-24 04:53] LABS: Basophils % 0.4 % (0.0-0.8); Eosinophils # 0.7 10*3/uL (0.0-0.87); Eosinophils % 8.6 % (0.00-10.9); Hematocrit 28.3 VOL% (35.7-47.0); Hemoglobin 9.3 GM/DL (12.0-16.0); Immature Granulocytes % 8.9 %; Immature Granulocytes Absolute 0.69 #; Lymphocytes # 0.7 10*3/uL (1.4-4.0); Lymphocytes % 8.4 % (21.3-54.2); Mean Corpuscular HGB Conc 32.9 GM/DL (32-36); Mean Corpuscular Volume 89.8 FL (87-102); Mean Platelet Volume 9.6 FL (9.6-12.0); Neutrophils % 67.7 % (38.7-73.9); Platelet Count 222 T/CUMM (130-400); Red Blood Count 3.15 MC/CUMM (3.8-5.5); Red Cell Distribution Width 15.9 % (9.3-17.3); White Blood Count 7.8 T/CUMM (4-12)
[2019-08-24 05:16] LABS: Band Neutrophils 3 % (0-10); Eosinophils 3 % (0-10); Hypochromasia 1+; Lymphocytes 13 % (20-55); Ovalocytes Slight; Platelet Estimate Adequate; Segmented Neutrophils 75 % (50-85); Total Cells Counted 100
[2019-08-24 05:22] LABS: Calcium 5.9 MG/DL (8.5-10.1); Osmolality,Calculated 290.5 MOS/KG (273-304)
[2019-08-24] MEDS: KETOROLAC 30 MG/1 ML VIAL IV SCH ×2 (05:33→11:47)
[2019-08-24] MEDS ORDERED: PANTOPRAZOLE 40 MG TABLET PO SCH (09:00)
[2019-08-24] MEDS: MEROPENEM 500 MG in SODIUM CHLORIDE 0.9% 100 ML IV SCH (09:27)
[2019-08-24] MEDS: AMIODARONE 200 MG TABLET PO SCH (09:28)
[2019-08-24] MEDS: ONDANSETRON 4 MG/2 ML VIAL IV PRN (11:47)
[2019-08-24 16:05] VITALS: BP 133/73
== END 2019-08-24 17:10 | DRG 853 ==
LOC: N.ED 16:34 → N.EDINP 16:34 → SUATTDRO 20:29 → N.5E 21:20 → N.ICU 08-17 03:57 → SUATTDRO 08-17 12:39 → N.TELES 08-23 11:26
PROVIDERS: ADMIT Internal Medicine; ATTEND Internal Medicine

== ENCOUNTER 2020-03-24 19:39 | Inpatient (IN) ==
[2020-03-24] MEDS ORDERED: METHOCARBAMOL 1,000 MG/10 ML VIAL IV STA (20:30)
[2020-03-24] MEDS ORDERED: SODIUM CHLORIDE 0.9% 500 ML IV STA (20:30)
[2020-03-24] MEDS ORDERED: ONDANSETRON 4 MG/2 ML VIAL IV STA (20:30)
[2020-03-24 20:54] LABS: Basophils % 0.6 % (0.0-0.8); Eosinophils # 0.7 10*3/uL (0.0-0.87); Eosinophils % 10.4 % (0.00-10.9); Hematocrit 29.8 VOL% (35.7-47.0); Hemoglobin 9.3 GM/DL (12.0-16.0); Immature Granulocytes % 0.3 %; Immature Granulocytes Absolute 0.02 #; Lymphocytes # 1.9 10*3/uL (1.4-4.0); Lymphocytes % 29.6 % (21.3-54.2); Mean Corpuscular HGB Conc 31.2 GM/DL (32-36); Mean Corpuscular Volume 89.2 FL (87-102); Mean Platelet Volume 11.7 FL (9.6-12.0); Monocytes % 9.3 % (1.7-12.7); Neutrophils % 49.8 % (38.7-73.9); Platelet Count 126 T/CUMM (130-400); Red Blood Count 3.34 MC/CUMM (3.8-5.5); Red Cell Distribution Width 15.5 % (9.3-17.3); White Blood Count 6.2 T/CUMM (4-12)
[2020-03-24 21:03] LABS: PT Patient Result 10.3 SECS (9.8-11.9)
[2020-03-24 21:18] LABS: Alanine Aminotransferase 14 U/L (13-56); Albumin 3.4 G/DL (3.4-5.0); Alkaline Phosphatase 142 U/L (45-117); Aspartate Amino Transferase 21 U/L (0-37); Blood Urea Nitrogen 65 MG/DL (7-18); Calcium 7.2 MG/DL (8.5-10.1); Estimated Glom Filtration Rate 4 ML/MIN; Glucose 75 MG/DL (74-106); Osmolality,Calculated 292.7 MOS/KG (273-304); Total Protein 6.8 G/DL (6.4-8.3); Troponin I < 0.015 NG/ML (0.00-0.045)
[2020-03-24] MEDS ORDERED: methylPREDNISolone SOD SUC 125 MG/2 ML VIAL IV STA (21:29)
[2020-03-24 21:41] LABS: Free T4 (Free Thyroxine) 0.79 NG/DL (0.76-1.46); Thyroid Stimulating Hormone 1.71 uIU/ml (0.358-3.74)
[2020-03-25] MEDS ORDERED: PROMETHAZINE 25 MG/1 ML VIAL IM PRN (00:09)
[2020-03-25] MEDS ORDERED: ALBUTEROL 2.5 MG/3 ML NEB RESP TX PRN (00:09)
[2020-03-25] MEDS: SODIUM CHLORIDE 0.9% 1,000 ML IV SCH ×2 (00:15→10:30)
[2020-03-25] MEDS ORDERED: ENOXAPARIN 30 MG/0.3 ML SYRINGE SUBCUT SCH (00:30)
[2020-03-25 05:02] LABS: Basophils % 0.3 % (0.0-0.8); Eosinophils # 0.1 10*3/uL (0.0-0.87); Eosinophils % 2.4 % (0.00-10.9); Hematocrit 27.4 VOL% (35.7-47.0); Hemoglobin 8.7 GM/DL (12.0-16.0); Immature Granulocytes % 0.3 %; Immature Granulocytes Absolute 0.02 #; Lymphocytes # 0.9 10*3/uL (1.4-4.0); Lymphocytes % 14.6 % (21.3-54.2); Mean Corpuscular HGB Conc 31.8 GM/DL (32-36); Mean Platelet Volume 12.1 FL (9.6-12.0); Monocytes % 1.7 % (1.7-12.7); Neutrophils % 80.7 % (38.7-73.9); Platelet Count 113 T/CUMM (130-400); Red Blood Count 3.08 MC/CUMM (3.8-5.5); Red Cell Distribution Width 15.5 % (9.3-17.3)
[2020-03-25 05:12] LABS: Calcium 6.9 MG/DL (8.5-10.1); Osmolality,Calculated 294.8 MOS/KG (273-304)
[2020-03-25] MEDS ORDERED: DEXTROSE 50% 25 GM/50 ML VIAL IV STA (05:21)
[2020-03-25] MEDS ORDERED: INSULIN REGULAR 100 UNIT/ML IV STA (05:22)
[2020-03-25] MEDS ORDERED: SODIUM BICARBONATE 50 MEQ/50 ML VIAL IV STA (05:24)
[2020-03-25] MEDS ORDERED: SODIUM BICARBONATE 50 MEQ/50 ML VIAL IV ONE (05:25)
[2020-03-25] MEDS ORDERED: DEXTROSE 50% 25 GM/50 ML SYRINGE IV ONE (05:25)
[2020-03-25 08:32] LABS: Calcium 6.6 MG/DL (8.5-10.1); Osmolality,Calculated 298.7 MOS/KG (273-304)
[2020-03-25] MEDS: MIDODRINE 5 MG TABLET PO SCH ×5 (11:54→20:51)
[2020-03-25] MEDS: GABAPENTIN 100 MG CAPSULE PO SCH ×2 (20:28→20:51)
[2020-03-25] MEDS: CALCIUM ACETATE 667 MG CAPSULE PO SCH (20:50)
[2020-03-25] MEDS: DOCUSATE SODIUM 100 MG CAPSULE PO SCH (20:51)
[2020-03-25] MEDS: CYANOCOBALAMIN 500 MCG TABLET PO SCH (20:51)
[2020-03-25] MEDS: PANTOPRAZOLE 40 MG TABLET PO SCH (20:51)
[2020-03-26 06:44] LABS: Basophils % 0.5 % (0.0-0.8); Eosinophils # 0.2 10*3/uL (0.0-0.87); Eosinophils % 3.9 % (0.00-10.9); Hematocrit 26.5 VOL% (35.7-47.0); Hemoglobin 8.7 GM/DL (12.0-16.0); Immature Granulocytes % 0.3 %; Immature Granulocytes Absolute 0.02 #; Lymphocytes # 1.9 10*3/uL (1.4-4.0); Lymphocytes % 29.8 % (21.3-54.2); Mean Corpuscular HGB Conc 32.8 GM/DL (32-36); Mean Corpuscular Volume 86.3 FL (87-102); Mean Platelet Volume 11.9 FL (9.6-12.0); Monocytes % 6.3 % (1.7-12.7); Neutrophils % 59.2 % (38.7-73.9); Platelet Count 124 T/CUMM (130-400); Red Blood Count 3.07 MC/CUMM (3.8-5.5); Red Cell Distribution Width 15.6 % (9.3-17.3); White Blood Count 6.2 T/CUMM (4-12)
[2020-03-26 07:03] LABS: Osmolality,Calculated 286.5 MOS/KG (273-304)
[2020-03-26] MEDS: ONDANSETRON 4 MG/2 ML VIAL IV PRN ×2 (09:43→14:05)
[2020-03-26] MEDS: DOCUSATE SODIUM 100 MG CAPSULE PO SCH ×2 (09:44→21:47)
[2020-03-26] MEDS: PANTOPRAZOLE 40 MG TABLET PO SCH (09:44)
[2020-03-26] MEDS: GABAPENTIN 100 MG CAPSULE PO SCH ×2 (09:44→21:47)
[2020-03-26] MEDS: HEPARIN 5,000 UNIT/1 ML VIAL SUBCUT SCH ×2 (09:44→21:47)
[2020-03-26] MEDS: CALCIUM ACETATE 667 MG CAPSULE PO SCH ×3 (09:44→17:03)
[2020-03-26] MEDS: MIDODRINE 5 MG TABLET PO SCH ×6 (09:44→21:47)
[2020-03-26] MEDS: ASPIRIN EC 81 MG TABLET PO SCH (09:44)
[2020-03-26 11:54] LABS: Hypochromasia 2+; Platelet Estimate Adequate; Schistocytes Slight; Target Cells Few
[2020-03-26] MEDS: CYANOCOBALAMIN 500 MCG TABLET PO SCH (12:14)
[2020-03-26] MEDS ORDERED: KETOROLAC 15 MG/1 ML VIAL IV ONE (21:13)
[2020-03-27 06:22] LABS: Basophils % 0.4 % (0.0-0.8); Eosinophils # 0.4 10*3/uL (0.0-0.87); Eosinophils % 8.9 % (0.00-10.9); Hematocrit 26.8 VOL% (35.7-47.0); Hemoglobin 8.4 GM/DL (12.0-16.0); Immature Granulocytes % 0.2 %; Immature Granulocytes Absolute 0.01 #; Lymphocytes # 1.7 10*3/uL (1.4-4.0); Lymphocytes % 36.7 % (21.3-54.2); Mean Corpuscular HGB Conc 31.3 GM/DL (32-36); Mean Corpuscular Volume 89.6 FL (87-102); Monocytes % 7.4 % (1.7-12.7); Neutrophils % 46.4 % (38.7-73.9); Platelet Count 100 T/CUMM (130-400); Red Blood Count 2.99 MC/CUMM (3.8-5.5); Red Cell Distribution Width 15.5 % (9.3-17.3); White Blood Count 4.7 T/CUMM (4-12)
[2020-03-27 06:47] LABS: Calcium 6.9 MG/DL (8.5-10.1); Osmolality,Calculated 283.4 MOS/KG (273-304)
[2020-03-27] MEDS: CALCIUM ACETATE 667 MG CAPSULE PO SCH ×2 (09:21→11:53)
[2020-03-27] MEDS: PANTOPRAZOLE 40 MG TABLET PO SCH (09:21)
[2020-03-27] MEDS: CYANOCOBALAMIN 500 MCG TABLET PO SCH (09:21)
[2020-03-27] MEDS: MIDODRINE 5 MG TABLET PO SCH ×2 (09:21)
[2020-03-27] MEDS: ASPIRIN EC 81 MG TABLET PO SCH (09:21)
[2020-03-27] MEDS: HEPARIN 5,000 UNIT/1 ML VIAL SUBCUT SCH (09:21)
[2020-03-27] MEDS: DOCUSATE SODIUM 100 MG CAPSULE PO SCH (09:21)
[2020-03-27] MEDS: GABAPENTIN 100 MG CAPSULE PO SCH (09:21)
[2020-03-27 12:13] VITALS: BP 123/81
== END 2020-03-27 12:45 | disposition home or self-care (01) | DRG 312 ==
LOC: N.ED 19:39 → N.EDINP 22:48 → SUATTDRO 22:48 → N.EDINP 03-25 15:13 → N.3E 03-25 19:04
PROVIDERS: ADMIT Internal Medicine; ATTEND Internal Medicine

== ENCOUNTER 2020-07-18 10:28 | Inpatient (IN) ==
[2020-07-18] MEDS ORDERED: HYDROmorphone 2 MG/1 ML VIAL IV STA ×2 (12:04→14:16)
[2020-07-18] MEDS ORDERED: ONDANSETRON 4 MG/2 ML VIAL IV ONE (12:04)
[2020-07-18 12:09] LABS: Basophils % 0.3 % (0.0-0.8); Eosinophils # 0.4 10*3/uL (0.0-0.87); Eosinophils % 3.3 % (0.00-10.9); Hematocrit 26.7 VOL% (35.7-47.0); Hemoglobin 8.7 GM/DL (12.0-16.0); Immature Granulocytes % 0.8 %; Lymphocytes # 1.1 10*3/uL (1.4-4.0); Lymphocytes % 9.5 % (21.3-54.2); Mean Corpuscular HGB Conc 32.6 GM/DL (32-36); Mean Corpuscular Volume 88.1 FL (87-102); Mean Platelet Volume 9.7 FL (9.6-12.0); Monocytes % 8.5 % (1.7-12.7); Neutrophils % 77.6 % (38.7-73.9); Platelet Count 308 T/CUMM (130-400); Red Blood Count 3.03 MC/CUMM (3.8-5.5); Red Cell Distribution Width 16.6 % (9.3-17.3); White Blood Count 11.8 T/CUMM (4-12)
[2020-07-18 12:37] LABS: Albumin 3.3 G/DL (3.4-5.0); Calcium 9.5 MG/DL (8.5-10.1); Osmolality,Calculated 276.8 MOS/KG (273-304); Total Protein 8.5 G/DL (6.4-8.3)
[2020-07-18] MEDS ORDERED: ONDANSETRON 4 MG/2 ML VIAL IV STA (14:20)
[2020-07-18] MEDS ORDERED: DEXTROSE 50% 25 GM/50 ML VIAL IV PRN (15:52)
[2020-07-18] MEDS ORDERED: GLUCAGON 1 MG VIAL IM PRN (15:52)
[2020-07-18] MEDS ORDERED: CALCIUM ACETATE 667 MG CAPSULE PO SCH (16:30)
[2020-07-18] MEDS ORDERED: METOPROLOL TARTRATE 25 MG TABLET PO SCH (21:00)
[2020-07-18] MEDS ORDERED: GABAPENTIN 100 MG CAPSULE PO SCH (21:00)
[2020-07-18] MEDS: DOCUSATE SODIUM 100 MG CAPSULE PO SCH (21:48)
[2020-07-18] MEDS: HYDROmorphone 2 MG/1 ML VIAL IV PRN (21:52)
[2020-07-19] MEDS: HYDROmorphone 2 MG/1 ML VIAL IV PRN ×3 (03:15→17:27)
[2020-07-19] MEDS: ACETAMINOPHEN 325 MG TABLET PO PRN ×2 (03:42→13:51)
[2020-07-19 06:12] LABS: Basophils % 0.3 % (0.0-0.8); Eosinophils # 0.3 10*3/uL (0.0-0.87); Eosinophils % 2.3 % (0.00-10.9); Hematocrit 24.2 VOL% (35.7-47.0); Hemoglobin 7.8 GM/DL (12.0-16.0); Immature Granulocytes % 0.8 %; Immature Granulocytes Absolute 0.09 #; Lymphocytes # 0.6 10*3/uL (1.4-4.0); Lymphocytes % 5.7 % (21.3-54.2); Mean Corpuscular HGB Conc 32.2 GM/DL (32-36); Monocytes % 7.6 % (1.7-12.7); Neutrophils % 83.3 % (38.7-73.9); Platelet Count 316 T/CUMM (130-400); Red Blood Count 2.69 MC/CUMM (3.8-5.5); Red Cell Distribution Width 16.6 % (9.3-17.3); White Blood Count 10.9 T/CUMM (4-12)
[2020-07-19 06:28] LABS: Albumin 2.7 G/DL (3.4-5.0); Bilirubin,Total 0.9 MG/DL (0.2-1.0); Calcium 8.3 MG/DL (8.5-10.1); Osmolality,Calculated 269.7 MOS/KG (273-304); Total Protein 7.3 G/DL (6.4-8.3)
[2020-07-19] MEDS: DOCUSATE SODIUM 100 MG CAPSULE PO SCH ×2 (10:26→22:53)
[2020-07-19] MEDS: MEROPENEM 1,000 MG in SODIUM CHLORIDE 0.9% 100 ML IV SCH (13:28)
[2020-07-19] MEDS ORDERED: SODIUM CHLORIDE 0.9% 1,000 ML IV ONE (16:13)
[2020-07-19] MEDS: MORPHINE 4 MG/1 ML VIAL IV PRN (20:40)
[2020-07-20] MEDS: HYDROmorphone 2 MG/1 ML VIAL IV PRN ×4 (01:18→20:35)
[2020-07-20] MEDS: MORPHINE 4 MG/1 ML VIAL IV PRN (04:52)
[2020-07-20 06:31] LABS: Basophils % 0.2 % (0.0-0.8); Eosinophils # 0.7 10*3/uL (0.0-0.87); Hematocrit 21.8 VOL% (35.7-47.0); Hemoglobin 7.2 GM/DL (12.0-16.0); Immature Granulocytes % 0.7 %; Immature Granulocytes Absolute 0.07 #; Lymphocytes # 0.8 10*3/uL (1.4-4.0); Lymphocytes % 7.8 % (21.3-54.2); Mean Corpuscular Volume 88.6 FL (87-102); Mean Platelet Volume 9.7 FL (9.6-12.0); Monocytes % 9.9 % (1.7-12.7); Neutrophils % 74.4 % (38.7-73.9); Platelet Count 319 T/CUMM (130-400); Red Blood Count 2.46 MC/CUMM (3.8-5.5); Red Cell Distribution Width 16.3 % (9.3-17.3)
[2020-07-20 07:07] LABS: % Iron Saturation 17.7 % (18-50); Albumin 2.4 G/DL (3.4-5.0); Bilirubin,Total 0.9 MG/DL (0.2-1.0); Calcium 7.7 MG/DL (8.5-10.1); Ferritin 2471.5 ng/ml (8-252); Osmolality,Calculated 275.5 MOS/KG (273-304); Total Protein 6.7 G/DL (6.4-8.3)
[2020-07-20] MEDS: DOCUSATE SODIUM 100 MG CAPSULE PO SCH ×2 (09:09→20:35)
[2020-07-20] MEDS: MEROPENEM 1,000 MG in SODIUM CHLORIDE 0.9% 100 ML IV SCH (16:39)
[2020-07-21] MEDS: HYDROmorphone 2 MG/1 ML VIAL IV PRN ×5 (00:13→23:08)
[2020-07-21 06:06] LABS: INR 1.1; PT Patient Result 11.4 SECS (9.8-11.9)
[2020-07-21 06:08] LABS: Basophils % 0.3 % (0.0-0.8); Eosinophils # 0.7 10*3/uL (0.0-0.87); Eosinophils % 6.5 % (0.00-10.9); Hematocrit 21.9 VOL% (35.7-47.0); Immature Granulocytes % 0.9 %; Immature Granulocytes Absolute 0.09 #; Lymphocytes # 0.9 10*3/uL (1.4-4.0); Lymphocytes % 8.5 % (21.3-54.2); Mean Corpuscular Volume 90.5 FL (87-102); Mean Platelet Volume 9.9 FL (9.6-12.0); Monocytes % 9.1 % (1.7-12.7); Neutrophils % 74.7 % (38.7-73.9); Platelet Count 323 T/CUMM (130-400); Red Blood Count 2.42 MC/CUMM (3.8-5.5); Red Cell Distribution Width 16.3 % (9.3-17.3); White Blood Count 10.1 T/CUMM (4-12)
[2020-07-21 06:23] LABS: Albumin 2.3 G/DL (3.4-5.0); Bilirubin,Total 0.5 MG/DL (0.2-1.0); Calcium 7.9 MG/DL (8.5-10.1); Osmolality,Calculated 277.1 MOS/KG (273-304); Total Protein 6.8 G/DL (6.4-8.3)
[2020-07-21] MEDS ORDERED: INDOMETHACIN SUPP 50 MG SUPP RECTAL ONE (08:00)
[2020-07-21] MEDS ORDERED: SODIUM CHLORIDE 0.9% 1,000 ML IV SCH (08:00)
[2020-07-21] MEDS ORDERED: SODIUM CHLORIDE 0.9% 1,000 ML IV PRN (08:23)
[2020-07-21] MEDS: DOCUSATE SODIUM 100 MG CAPSULE PO SCH ×2 (09:11→21:06)
[2020-07-21] MEDS ORDERED: propofoL 200 MG/20 ML VIAL IV ONE (10:00)
[2020-07-21] MEDS ORDERED: LIDOCAINE 2% 5 ML VIAL ONE (10:00)
[2020-07-21] MEDS: MEROPENEM 1,000 MG in SODIUM CHLORIDE 0.9% 100 ML IV SCH (13:08)
[2020-07-21] MEDS ORDERED: ALUMINUM/MAGNES/SIMETH MAX STR 30 ML UDCUP PO PRN (22:32)
[2020-07-22] MEDS: HYDROmorphone 2 MG/1 ML VIAL IV PRN ×2 (04:28→21:29)
[2020-07-22 05:44] LABS: Basophils % 0.4 % (0.0-0.8); Eosinophils # 0.8 10*3/uL (0.0-0.87); Eosinophils % 8.2 % (0.00-10.9); Hematocrit 29.2 VOL% (35.7-47.0); Hemoglobin 9.5 GM/DL (12.0-16.0); Immature Granulocytes % 1.3 %; Immature Granulocytes Absolute 0.12 #; Lymphocytes # 0.9 10*3/uL (1.4-4.0); Mean Corpuscular HGB Conc 32.5 GM/DL (32-36); Mean Corpuscular Volume 89.6 FL (87-102); Mean Platelet Volume 9.8 FL (9.6-12.0); Monocytes % 7.6 % (1.7-12.7); Neutrophils % 72.5 % (38.7-73.9); Platelet Count 347 T/CUMM (130-400); Red Blood Count 3.26 MC/CUMM (3.8-5.5); Red Cell Distribution Width 15.6 % (9.3-17.3); White Blood Count 9.2 T/CUMM (4-12)
[2020-07-22 06:04] LABS: Albumin 2.5 G/DL (3.4-5.0); Bilirubin,Total 0.8 MG/DL (0.2-1.0); Calcium 8.1 MG/DL (8.5-10.1); Osmolality,Calculated 286.8 MOS/KG (273-304); Total Protein 7.2 G/DL (6.4-8.3)
[2020-07-22] MEDS: DOCUSATE SODIUM 100 MG CAPSULE PO SCH ×2 (08:41→21:29)
[2020-07-22] MEDS: MEROPENEM 1,000 MG in SODIUM CHLORIDE 0.9% 100 ML IV SCH (11:04)
[2020-07-22] MEDS: MORPHINE 4 MG/1 ML VIAL IV PRN ×2 (11:22→17:00)
[2020-07-22] MEDS: METOPROLOL TARTRATE 25 MG TABLET PO SCH (21:29)
[2020-07-23] MEDS: HYDROmorphone 2 MG/1 ML VIAL IV PRN ×5 (01:33→22:59)
[2020-07-23 05:56] LABS: Basophils # 0.1 10*3/uL (0.0-0.2); Basophils % 0.5 % (0.0-0.8); Eosinophils # 0.8 10*3/uL (0.0-0.87); Eosinophils % 9.2 % (0.00-10.9); Hematocrit 29.6 VOL% (35.7-47.0); Hemoglobin 9.5 GM/DL (12.0-16.0); Immature Granulocytes % 2.5 %; Immature Granulocytes Absolute 0.23 #; Lymphocytes # 0.9 10*3/uL (1.4-4.0); Lymphocytes % 10.3 % (21.3-54.2); Mean Corpuscular HGB Conc 32.1 GM/DL (32-36); Mean Corpuscular Volume 91.6 FL (87-102); Mean Platelet Volume 9.6 FL (9.6-12.0); Monocytes % 7.8 % (1.7-12.7); Neutrophils % 69.7 % (38.7-73.9); Platelet Count 372 T/CUMM (130-400); Red Blood Count 3.23 MC/CUMM (3.8-5.5); Red Cell Distribution Width 15.9 % (9.3-17.3); White Blood Count 9.1 T/CUMM (4-12)
[2020-07-23 06:16] LABS: Albumin 2.5 G/DL (3.4-5.0); Bilirubin,Total 0.6 MG/DL (0.2-1.0); Calcium 8.4 MG/DL (8.5-10.1); Osmolality,Calculated 278.8 MOS/KG (273-304); Total Protein 7.3 G/DL (6.4-8.3)
[2020-07-23] MEDS: METOPROLOL TARTRATE 25 MG TABLET PO SCH ×2 (09:29→22:59)
[2020-07-23] MEDS: DOCUSATE SODIUM 100 MG CAPSULE PO SCH ×2 (09:29→22:59)
[2020-07-23] MEDS: MEROPENEM 1,000 MG in SODIUM CHLORIDE 0.9% 100 ML IV SCH (11:16)
[2020-07-24 06:10] LABS: Basophils # 0.1 10*3/uL (0.0-0.2); Basophils % 0.7 % (0.0-0.8); Eosinophils # 0.8 10*3/uL (0.0-0.87); Eosinophils % 8.9 % (0.00-10.9); Hematocrit 29.2 VOL% (35.7-47.0); Hemoglobin 9.2 GM/DL (12.0-16.0); Immature Granulocytes % 4.3 %; Immature Granulocytes Absolute 0.38 #; Lymphocytes % 11.7 % (21.3-54.2); Mean Corpuscular HGB Conc 31.5 GM/DL (32-36); Mean Corpuscular Volume 90.1 FL (87-102); Mean Platelet Volume 9.5 FL (9.6-12.0); Monocytes % 7.5 % (1.7-12.7); Neutrophils % 66.9 % (38.7-73.9); Platelet Count 367 T/CUMM (130-400); Red Blood Count 3.24 MC/CUMM (3.8-5.5); Red Cell Distribution Width 16.1 % (9.3-17.3); White Blood Count 8.8 T/CUMM (4-12)
[2020-07-24] MEDS: HYDROmorphone 2 MG/1 ML VIAL IV PRN ×3 (06:25→18:37)
[2020-07-24 06:29] LABS: Albumin 2.2 G/DL (3.4-5.0); Bilirubin,Total 0.4 MG/DL (0.2-1.0); Calcium 7.7 MG/DL (8.5-10.1); Osmolality,Calculated 282.8 MOS/KG (273-304); Total Protein 6.6 G/DL (6.4-8.3)
[2020-07-24] MEDS: METOPROLOL TARTRATE 25 MG TABLET PO SCH ×2 (10:13→21:23)
[2020-07-24] MEDS: DOCUSATE SODIUM 100 MG CAPSULE PO SCH ×2 (10:13→21:23)
[2020-07-24] MEDS: MEROPENEM 1,000 MG in SODIUM CHLORIDE 0.9% 100 ML IV SCH (13:01)
[2020-07-25] MEDS: HYDROmorphone 2 MG/1 ML VIAL IV PRN ×3 (00:19→13:30)
[2020-07-25] MEDS: METOPROLOL TARTRATE 25 MG TABLET PO SCH (13:30)
[2020-07-25] MEDS: DOCUSATE SODIUM 100 MG CAPSULE PO SCH (13:30)
[2020-07-25 16:10] VITALS: BP 100/60
[2020-07-25] MEDS ORDERED: ceFAZolin 2,000 MG in PREMIX 1 EACH IV SCH (17:00)
[2020-07-29] MEDS ORDERED: ceFAZolin 3,000 MG in SYRINGE 1 EACH IV SCH (17:00)
== END 2020-07-25 18:42 | disposition home or self-care (01) | DRG 444 ==
LOC: N.ED 10:28 → N.EDINP 15:52 → N.TELEN 18:36
PROVIDERS: ADMIT Internal Medicine; ATTEND Internal Medicine

== ENCOUNTER 2020-09-17 03:36 | Inpatient (IN) ==
[2020-09-17] MEDS ORDERED: ACETAMINOPHEN 500 MG TABLET PO STA (03:56)
[2020-09-17] MEDS ORDERED: SODIUM CHLORIDE 0.9% 1,000 ML IV STA ×2 (03:56→06:43)
[2020-09-17 04:55] LABS: Basophils % 0.2 % (0.0-0.8); Eosinophils % 0.5 % (0.00-10.9); Hematocrit 33.6 VOL% (35.7-47.0); Hemoglobin 10.8 GM/DL (12.0-16.0); Immature Granulocytes % 1.4 %; Immature Granulocytes Absolute 0.06 #; Lymphocytes # 0.2 10*3/uL (1.4-4.0); Lymphocytes % 5.5 % (21.3-54.2); Mean Corpuscular HGB Conc 32.1 GM/DL (32-36); Mean Platelet Volume 10.2 FL (9.6-12.0); Monocytes % 0.5 % (1.7-12.7); Neutrophils % 91.9 % (38.7-73.9); Platelet Count 232 T/CUMM (130-400); Red Blood Count 3.82 MC/CUMM (3.8-5.5); Red Cell Distribution Width 16.9 % (9.3-17.3); White Blood Count 4.2 T/CUMM (4-12)
[2020-09-17 05:28] LABS: Band Neutrophils 4 % (0-10); Hypochromasia 1+; Lymphocytes 7 % (20-55); Microcytosis 1+; Platelet Estimate Adequate; Segmented Neutrophils 87 % (50-85); Total Cells Counted 100
[2020-09-17 05:34] LABS: Albumin 2.7 G/DL (3.4-5.0); Bilirubin,Total 0.9 MG/DL (0.2-1.0); Calcium 8.7 MG/DL (8.5-10.1); Osmolality,Calculated 280.8 MOS/KG (273-304); Total Protein 7.9 G/DL (6.4-8.3)
[2020-09-17 06:03] LABS: Ferritin 3746.2 ng/ml (8-252)
[2020-09-17] MEDS ORDERED: ONDANSETRON 4 MG/2 ML VIAL IV STA (06:43)
[2020-09-17] MEDS ORDERED: MORPHINE 4 MG/1 ML VIAL IV ONE (06:43)
[2020-09-17] MEDS ORDERED: DEXTROSE 50% 25 GM/50 ML VIAL IV PRN (09:18)
[2020-09-17] MEDS ORDERED: GLUCAGON 1 MG VIAL IM PRN (09:18)
[2020-09-17] MEDS ORDERED: HYDROmorphone 2 MG/1 ML VIAL IV ONE (11:26)
[2020-09-17] MEDS ORDERED: VANCOMYCIN INJ 500 MG in SODIUM CHLORIDE 0.9% 100 ML IV PRN (11:30)
[2020-09-17] MEDS: DEXTROSE 5% NACL 0.45% 1,000 ML IV SCH (11:36)
[2020-09-17] MEDS: ACETAMINOPHEN 325 MG TABLET PO PRN (11:36)
[2020-09-17] MEDS: CIPROFLOXACIN INJ 400 MG in PREMIX 1 EACH IV SCH (11:46)
[2020-09-17] MEDS ORDERED: VANCOMYCIN INJ 1,500 MG in SODIUM CHLORIDE 0.9% 500 ML IV ONE (13:00)
[2020-09-17] MEDS: metroNIDAZOLE INJ 500 MG in PREMIX 1 EACH IV SCH ×2 (13:15→20:11)
[2020-09-17] MEDS ORDERED: INFLUENZA VIRUS VACCINE 0.5 ML SYRINGE IM ONE (13:47)
[2020-09-18] MEDS: DEXTROSE 5% NACL 0.45% 1,000 ML IV SCH ×2 (04:08→16:08)
[2020-09-18] MEDS: metroNIDAZOLE INJ 500 MG in PREMIX 1 EACH IV SCH ×2 (04:09→13:20)
[2020-09-18 07:13] LABS: Basophils % 0.1 % (0.0-0.8); Eosinophils % 0.1 % (0.00-10.9); Hematocrit 21.5 VOL% (35.7-47.0); Immature Granulocytes % 0.7 %; Immature Granulocytes Absolute 0.11 #; Lymphocytes # 0.6 10*3/uL (1.4-4.0); Lymphocytes % 4.3 % (21.3-54.2); Mean Corpuscular HGB Conc 30.2 GM/DL (32-36); Mean Corpuscular Volume 93.9 FL (87-102); Monocytes % 5.7 % (1.7-12.7); Neutrophils % 89.1 % (38.7-73.9)
[2020-09-18 07:17] LABS: Hemoglobin 6.5 GM/DL (12.0-16.0); Platelet Count 214 T/CUMM (130-400); Red Blood Count 2.29 MC/CUMM (3.8-5.5); White Blood Count 14.8 T/CUMM (4-12)
[2020-09-18 07:49] LABS: Band Neutrophils 7 % (0-10); Hypochromasia 1+; Lymphocytes 5 % (20-55); Microcytosis Slight; Platelet Estimate Adequate; Segmented Neutrophils 84 % (50-85); Total Cells Counted 100
[2020-09-18 08:27] LABS: Albumin 1.7 G/DL (3.4-5.0); Bilirubin,Total 0.4 MG/DL (0.2-1.0); Total Protein 4.7 G/DL (6.4-8.3)
[2020-09-18 08:28] LABS: Osmolality,Calculated 317.1 MOS/KG (273-304)
[2020-09-18 08:29] LABS: Calcium 5.3 MG/DL (8.5-10.1)
[2020-09-18 10:24] LABS: Basophils % 0.2 % (0.0-0.8); Eosinophils % 0.2 % (0.00-10.9); Hematocrit 29.4 VOL% (35.7-47.0); Hemoglobin 9.5 GM/DL (12.0-16.0); Immature Granulocytes % 0.5 %; Immature Granulocytes Absolute 0.09 #; Lymphocytes # 0.8 10*3/uL (1.4-4.0); Lymphocytes % 4.2 % (21.3-54.2); Mean Corpuscular HGB Conc 32.3 GM/DL (32-36); Mean Platelet Volume 10.3 FL (9.6-12.0); Monocytes % 1.9 % (1.7-12.7); Platelet Count 294 T/CUMM (130-400); Red Blood Count 3.34 MC/CUMM (3.8-5.5); Red Cell Distribution Width 16.7 % (9.3-17.3); White Blood Count 18.6 T/CUMM (4-12)
[2020-09-18] MEDS: CALCIUM ACETATE 667 MG CAPSULE PO SCH ×3 (10:45→16:07)
[2020-09-18] MEDS: ASPIRIN EC 81 MG TABLET PO SCH (10:45)
[2020-09-18] MEDS: PANTOPRAZOLE 40 MG TABLET PO SCH (10:45)
[2020-09-18 10:51] LABS: Band Neutrophils 6 % (0-10); Hypochromasia 1+; Lymphocytes 3 % (20-55); Microcytosis 1+; Platelet Estimate Adequate; Segmented Neutrophils 89 % (50-85); Total Cells Counted 100
[2020-09-18 10:55] LABS: Calcium 7.7 MG/DL (8.5-10.1); Osmolality,Calculated 285.1 MOS/KG (273-304)
[2020-09-18] MEDS ORDERED: ONDANSETRON 4 MG/2 ML VIAL IV PRN (11:50)
[2020-09-18] MEDS: HYDROmorphone 2 MG/1 ML VIAL IV PRN ×2 (13:16→18:50)
[2020-09-18] MEDS: CIPROFLOXACIN INJ 400 MG in PREMIX 1 EACH IV SCH (13:18)
[2020-09-18] MEDS: ACETAMINOPHEN 325 MG TABLET PO PRN (17:08)
[2020-09-18] MEDS: metroNIDAZOLE 500 MG TABLET PO SCH (21:11)
[2020-09-18] MEDS ORDERED: diphenhydrAMINE CAP 25 MG CAPSULE PO ONE (23:30)
[2020-09-19] MEDS: HYDROmorphone 2 MG/1 ML VIAL IV PRN ×3 (00:38→19:15)
[2020-09-19 02:16] VITALS: BP 126/79
[2020-09-19] MEDS ORDERED: SODIUM CHLORIDE 0.9% 500 ML IV ONE (04:01)
[2020-09-19] MEDS ORDERED: PHENYLEPHRINE DRIP 40 MG/250 ML PREMIX IV ONE (04:28)
[2020-09-19] MEDS: PHENYLEPHRINE DRIP 40 MG/250 ML PREMIX IV PRN ×3 (04:51→13:53)
[2020-09-19 04:59] LABS: Basophils % 0.2 % (0.0-0.8); Eosinophils # 0.1 10*3/uL (0.0-0.87); Eosinophils % 0.7 % (0.00-10.9); Hematocrit 28.3 VOL% (35.7-47.0); Hemoglobin 9.2 GM/DL (12.0-16.0); Immature Granulocytes % 2.5 %; Immature Granulocytes Absolute 0.31 #; Lymphocytes # 0.2 10*3/uL (1.4-4.0); Lymphocytes % 1.8 % (21.3-54.2); Mean Corpuscular HGB Conc 32.5 GM/DL (32-36); Mean Corpuscular Volume 86.5 FL (87-102); Mean Platelet Volume 10.3 FL (9.6-12.0); Monocytes % 0.6 % (1.7-12.7); Neutrophils % 94.2 % (38.7-73.9); Platelet Count 235 T/CUMM (130-400); Red Blood Count 3.27 MC/CUMM (3.8-5.5); Red Cell Distribution Width 17.2 % (9.3-17.3); White Blood Count 12.6 T/CUMM (4-12)
[2020-09-19 05:24] LABS: Band Neutrophils 4 % (0-10); Hypochromasia 1+; Lymphocytes 1 % (20-55); Metamyelocytes 1 %; Segmented Neutrophils 91 % (50-85); Total Cells Counted 100
[2020-09-19 05:25] LABS: Microcytosis 1+
[2020-09-19 05:51] LABS: Albumin 1.9 G/DL (3.4-5.0); Bilirubin,Total 0.4 MG/DL (0.2-1.0); Calcium 7.4 MG/DL (8.5-10.1); Osmolality,Calculated 285.4 MOS/KG (273-304); Total Protein 6.4 G/DL (6.4-8.3)
[2020-09-19] MEDS: metroNIDAZOLE 500 MG TABLET PO SCH ×2 (06:04→14:00)
[2020-09-19] MEDS: DEXTROSE 5% NACL 0.45% 1,000 ML IV SCH (06:04)
[2020-09-19] MEDS: MIDODRINE 5 MG TABLET PO SCH ×3 (08:31→20:16)
[2020-09-19] MEDS: CALCIUM ACETATE 667 MG CAPSULE PO SCH ×3 (08:31→17:07)
[2020-09-19] MEDS: ASPIRIN EC 81 MG TABLET PO SCH (08:31)
[2020-09-19] MEDS: PANTOPRAZOLE 40 MG TABLET PO SCH (08:32)
[2020-09-19] MEDS ORDERED: CIPROFLOXACIN 500 MG TABLET PO SCH (09:00)
[2020-09-19] MEDS ORDERED: MEROPENEM 500 MG in SODIUM CHLORIDE 0.9% 100 ML IV SCH (14:00)
[2020-09-19] MEDS ORDERED: SODIUM BICARB INJ 100 MEQ in DEXTROSE 5% 1,000 ML IV SCH (14:00)
== END 2020-09-19 20:50 | disposition hospice, home (50) | DRG 441 ==
LOC: EDUNIT# → EDBD → N.ED 03:36 → SUATTDRO 09:18 → N.EDINP 09:18 → N.3E 10:53 → N.ICU 09-19 04:26
PROVIDERS: ADMIT Internal Medicine; ATTEND Internal Medicine

== ENCOUNTER 2020-12-18 03:31 | Observation (INO) ==
[2020-12-18 04:17] LABS: Basophils % 0.4 % (0.0-0.8); Eosinophils % 13.4 % (0.00-10.9); Hematocrit 25.2 VOL% (35.7-47.0); Hemoglobin 8.2 GM/DL (12.0-16.0); Immature Granulocytes % 0.3 %; Immature Granulocytes Absolute 0.02 #; Lymphocytes # 1.9 10*3/uL (1.4-4.0); Lymphocytes % 25.4 % (21.3-54.2); Mean Corpuscular HGB Conc 32.5 GM/DL (32-36); Mean Corpuscular Volume 88.1 FL (87-102); Mean Platelet Volume 11.1 FL (9.6-12.0); Monocytes % 8.7 % (1.7-12.7); Neutrophils % 51.8 % (38.7-73.9); Platelet Count 148 T/CUMM (130-400); Red Blood Count 2.86 MC/CUMM (3.8-5.5); White Blood Count 7.3 T/CUMM (4-12)
[2020-12-18 04:34] LABS: Bilirubin,Total 0.4 MG/DL (0.2-1.0); Calcium 7.9 MG/DL (8.5-10.1); Osmolality,Calculated 291.7 MOS/KG (273-304); Potassium 5.5 MMOL/L (3.5-5.1); Total Protein 6.8 G/DL (5.0-7.5)
[2020-12-18 04:55] LABS: PT Patient Result 10.6 SECS (9.8-11.9); Partial Thromboplastin Time 33.9 SECS (23.9-33.8)
[2020-12-18] MEDS ORDERED: GLUCAGON 1 MG VIAL IM PRN (05:07)
[2020-12-18] MEDS ORDERED: DEXTROSE 50% 25 GM/50 ML VIAL IV PRN (05:07)
[2020-12-18] MEDS ORDERED: ACETAMINOPHEN 325 MG TABLET PO PRN (05:07)
[2020-12-18] MEDS ORDERED: PROMETHAZINE 25 MG TABLET PO PRN (05:11)
[2020-12-18] MEDS ORDERED: GABAPENTIN 100 MG CAPSULE PO PRN (05:11)
[2020-12-18 07:21] LABS: Eosinophils 12 % (0-10); Lymphocytes 23 % (20-55); Platelet Estimate Decreased; Segmented Neutrophils 57 % (50-85); Total Cells Counted 100
[2020-12-18 07:22] LABS: Anisocytosis Slight; Macrocytosis Slight
[2020-12-18] MEDS: MIDODRINE 5 MG TABLET PO SCH ×4 (08:25→20:37)
[2020-12-18] MEDS: MULTIVITAMIN (OCUVITE) TABLET PO SCH (08:26)
[2020-12-18] MEDS: CYANOCOBALAMIN 500 MCG TABLET PO SCH (08:26)
[2020-12-18] MEDS: CALCIUM ACETATE 667 MG CAPSULE PO SCH ×3 (08:26→17:28)
[2020-12-18] MEDS: PANTOPRAZOLE 40 MG TABLET PO SCH (08:26)
[2020-12-18] MEDS: METOPROLOL TARTRATE 25 MG TABLET PO SCH ×2 (08:26→20:36)
[2020-12-18] MEDS: ChlordiazePOXIDE/CLIDINIUM 5-2.5 MG CAPSULE PO SCH ×3 (08:27→20:37)
[2020-12-18 10:22] LABS: Hematocrit 23.7 VOL% (35.7-47.0); Hemoglobin 7.7 GM/DL (12.0-16.0)
[2020-12-18] MEDS ORDERED: SODIUM CHLORIDE 0.9% 1,000 ML IV PRN (10:47)
[2020-12-18] MEDS ORDERED: EPOETIN ALFA-EPBX 10,000 UNIT/ML VIAL IV PRN (12:56)
[2020-12-18] MEDS: ONDANSETRON 4 MG/2 ML VIAL IV PRN (14:09)
[2020-12-18 19:39] LABS: Hematocrit 28.5 VOL% (35.7-47.0)
[2020-12-18 19:45] LABS: Hemoglobin 9.5 GM/DL (12.0-16.0)
[2020-12-18] MEDS: MULTIVITAMIN (BEROCCA) TABLET PO SCH (20:36)
[2020-12-18] MEDS: DOCUSATE SODIUM 100 MG CAPSULE PO SCH (20:37)
[2020-12-18 22:46] LABS: Hematocrit 28.1 VOL% (35.7-47.0); Hemoglobin 9.2 GM/DL (12.0-16.0)
[2020-12-19] MEDS: ONDANSETRON 4 MG/2 ML VIAL IV PRN ×2 (01:52→10:34)
[2020-12-19 05:29] LABS: Hematocrit 28.9 VOL% (35.7-47.0); Hemoglobin 9.5 GM/DL (12.0-16.0)
[2020-12-19 06:00] LABS: Bilirubin,Total 0.9 MG/DL (0.2-1.0); Total Protein 6.9 G/DL (5.0-7.5)
[2020-12-19 06:04] LABS: Potassium 6.4 MMOL/L (3.5-5.1)
[2020-12-19] MEDS ORDERED: SODIUM POLYSTYRENE SULFATE 15 GM/60 ML BOTTLE PO STA (07:39)
[2020-12-19] MEDS: CALCIUM ACETATE 667 MG CAPSULE PO SCH ×3 (08:00→17:44)
[2020-12-19] MEDS: ChlordiazePOXIDE/CLIDINIUM 5-2.5 MG CAPSULE PO SCH ×3 (09:00→21:51)
[2020-12-19] MEDS: MIDODRINE 5 MG TABLET PO SCH ×4 (09:00→21:45)
[2020-12-19] MEDS: METOPROLOL TARTRATE 25 MG TABLET PO SCH ×2 (09:04→21:45)
[2020-12-19] MEDS: MULTIVITAMIN (OCUVITE) TABLET PO SCH (16:07)
[2020-12-19] MEDS: PANTOPRAZOLE 40 MG TABLET PO SCH (16:07)
[2020-12-19] MEDS: CYANOCOBALAMIN 500 MCG TABLET PO SCH (16:07)
[2020-12-19] MEDS ORDERED: BUTALBITAL/ACETAMIN/CAFFEINE 50-325-40 MG TABLET PO ONE (16:45)
[2020-12-19] MEDS: MULTIVITAMIN (BEROCCA) TABLET PO SCH (21:45)
[2020-12-19] MEDS: DOCUSATE SODIUM 100 MG CAPSULE PO SCH (21:45)
[2020-12-20 03:58] LABS: Basophils % 0.4 % (0.0-0.8); Eosinophils # 0.9 10*3/uL (0.0-0.87); Eosinophils % 12.7 % (0.00-10.9); Hematocrit 29.1 VOL% (35.7-47.0); Hemoglobin 9.4 GM/DL (12.0-16.0); Immature Granulocytes % 0.3 %; Immature Granulocytes Absolute 0.02 #; Lymphocytes # 1.7 10*3/uL (1.4-4.0); Lymphocytes % 25.8 % (21.3-54.2); Mean Corpuscular HGB Conc 32.3 GM/DL (32-36); Mean Corpuscular Volume 86.9 FL (87-102); Mean Platelet Volume 11.7 FL (9.6-12.0); Monocytes % 8.7 % (1.7-12.7); Neutrophils % 52.1 % (38.7-73.9); Platelet Count 146 T/CUMM (130-400); Red Blood Count 3.35 MC/CUMM (3.8-5.5); Red Cell Distribution Width 14.8 % (9.3-17.3); White Blood Count 6.7 T/CUMM (4-12)
[2020-12-20 04:13] LABS: Calcium 7.6 MG/DL (8.5-10.1); Osmolality,Calculated 280.1 MOS/KG (273-304); Potassium 5.3 MMOL/L (3.5-5.1)
[2020-12-20 04:24] LABS: Band Neutrophils 2 % (0-10); Eosinophils 10 % (0-10); Lymphocytes 22 % (20-55); Segmented Neutrophils 60 % (50-85); Total Cells Counted 100
[2020-12-20 04:25] LABS: Atypical Lymphocytes Few; Hypochromasia 1+; Microcytosis 1+; Platelet Estimate Adequate
[2020-12-20] MEDS: MULTIVITAMIN (OCUVITE) TABLET PO SCH (08:53)
[2020-12-20] MEDS: METOPROLOL TARTRATE 25 MG TABLET PO SCH (08:53)
[2020-12-20] MEDS: CALCIUM ACETATE 667 MG CAPSULE PO SCH ×2 (08:53→12:50)
[2020-12-20] MEDS: MIDODRINE 5 MG TABLET PO SCH ×2 (08:54→12:51)
[2020-12-20] MEDS: CYANOCOBALAMIN 500 MCG TABLET PO SCH (08:54)
[2020-12-20] MEDS: PANTOPRAZOLE 40 MG TABLET PO SCH (08:54)
[2020-12-20] MEDS: ChlordiazePOXIDE/CLIDINIUM 5-2.5 MG CAPSULE PO SCH (09:00)
[2020-12-20 11:38] VITALS: BP 133/62
== END 2020-12-20 14:30 | disposition home or self-care (01) ==
LOC: N.EDINP 03:31 → N.ED 03:31 → SUATTDRO 05:07 → N.3E 06:17
PROVIDERS: ADMIT Internal Medicine; ATTEND Hospitalist

== ENCOUNTER 2021-09-26 09:55 | Inpatient (IN) ==
[2021-09-26 16:24] LABS: Basophils % 0.3 % (0.0-0.8); Eosinophils # 0.8 10*3/uL (0.0-0.87); Eosinophils % 9.9 % (0.00-10.9); Hematocrit 21.2 VOL% (35.7-47.0); Hemoglobin 6.9 GM/DL (12.0-16.0); Immature Granulocytes % 0.4 %; Immature Granulocytes Absolute 0.03 #; Lymphocytes # 1.8 10*3/uL (1.4-4.0); Lymphocytes % 23.5 % (21.3-54.2); Mean Corpuscular HGB Conc 32.5 GM/DL (32-36); Mean Corpuscular Volume 91.4 FL (87-102); Mean Platelet Volume 11.2 FL (9.6-12.0); Monocytes % 5.7 % (1.7-12.7); Neutrophils % 60.2 % (38.7-73.9); Platelet Count 172 T/CUMM (130-400); Red Blood Count 2.32 MC/CUMM (3.8-5.5); Red Cell Distribution Width 15.5 % (9.3-17.3); White Blood Count 7.5 T/CUMM (4-12)
[2021-09-26 16:36] LABS: Albumin 3.6 G/DL (3.4-5.0); Bilirubin,Total 0.5 MG/DL (0.20-1.00); Osmolality,Calculated 299.1 MOS/KG (273-304); Potassium 5.1 MMOL/L (3.5-5.1); Total Protein 7.6 G/DL (6.4-8.2)
[2021-09-26 16:42] LABS: INR 0.9; PT Patient Result 10.7 SECS (10.5-12.0)
[2021-09-26] MEDS ORDERED: ACETAMINOPHEN 325 MG TABLET PO PRN (17:52)
[2021-09-26] MEDS ORDERED: ONDANSETRON 4 MG/2 ML VIAL IV PRN (17:52)
[2021-09-26] MEDS ORDERED: GLUCAGON 1 MG VIAL IM PRN (17:52)
[2021-09-26] MEDS ORDERED: DEXTROSE 50% 25 GM/50 ML SYRINGE IV PRN (18:06)
[2021-09-26] MEDS ORDERED: FLUTICASONE 50 MCG NASAL SPRAY 16 GM BOTTLE BOTH NARES PRN (18:08)
[2021-09-26] MEDS ORDERED: GABAPENTIN 100 MG CAPSULE PO PRN (18:08)
[2021-09-26] MEDS ORDERED: CALCIUM ACETATE 667 MG CAPSULE PO SCH (18:30)
[2021-09-26] MEDS: METOPROLOL TARTRATE 25 MG TABLET PO SCH (20:47)
[2021-09-26] MEDS: MIDODRINE 5 MG TABLET PO SCH (20:47)
[2021-09-26] MEDS: MULTIVITAMIN (BEROCCA) TABLET PO SCH (20:47)
[2021-09-26] MEDS: PROMETHAZINE 25 MG TABLET PO PRN (20:48)
[2021-09-26 22:51] LABS: Hematocrit 18.9 VOL% (35.7-47.0)
[2021-09-26 22:55] LABS: Hemoglobin 6.1 GM/DL (12.0-16.0)
[2021-09-26] MEDS ORDERED: SODIUM CHLORIDE 0.9% 1,000 ML IV PRN (23:01)
[2021-09-27] MEDS ORDERED: SODIUM CHLORIDE 0.9% 1,000 ML IV PRN ×2 (08:52→11:00)
[2021-09-27] MEDS ORDERED: CYANOCOBALAMIN 5000 MCG PO SCH (09:00)
[2021-09-27] MEDS: MULTIVITAMIN (OCUVITE) TABLET PO SCH (09:53)
[2021-09-27] MEDS: CALCIUM ACETATE 667 MG CAPSULE PO SCH ×3 (09:53→16:02)
[2021-09-27] MEDS: METOPROLOL TARTRATE 25 MG TABLET PO SCH ×2 (09:55→20:19)
[2021-09-27] MEDS: MIDODRINE 5 MG TABLET PO SCH ×3 (09:55→20:19)
[2021-09-27] MEDS: PANTOPRAZOLE 40 MG VIAL IV SCH (11:13)
[2021-09-27 11:51] LABS: Basophils % 0.5 % (0.0-0.8); Eosinophils # 0.8 10*3/uL (0.0-0.87); Eosinophils % 9.6 % (0.00-10.9); Hematocrit 23.3 VOL% (35.7-47.0); Immature Granulocytes % 0.4 %; Immature Granulocytes Absolute 0.03 #; Lymphocytes # 1.1 10*3/uL (1.4-4.0); Lymphocytes % 13.8 % (21.3-54.2); Mean Corpuscular Volume 87.6 FL (87-102); Mean Platelet Volume 11.1 FL (9.6-12.0); Monocytes % 4.5 % (1.7-12.7); Neutrophils % 71.2 % (38.7-73.9); Platelet Count 162 T/CUMM (130-400); Red Blood Count 2.66 MC/CUMM (3.8-5.5); Red Cell Distribution Width 15.5 % (9.3-17.3); White Blood Count 8.3 T/CUMM (4-12)
[2021-09-27 11:53] LABS: Hemoglobin 7.7 GM/DL (12.0-16.0)
[2021-09-27 12:05] LABS: Albumin 3.4 G/DL (3.4-5.0); Osmolality,Calculated 301.4 MOS/KG (273-304); Potassium 5.7 MMOL/L (3.5-5.1)
[2021-09-27] MEDS: PROMETHAZINE 25 MG TABLET PO PRN (17:13)
[2021-09-27 18:15] LABS: Basophils % 0.6 % (0.0-0.8); Eosinophils # 0.6 10*3/uL (0.0-0.87); Eosinophils % 9.8 % (0.00-10.9); Hematocrit 30.4 VOL% (35.7-47.0); Hemoglobin 9.8 GM/DL (12.0-16.0); Immature Granulocytes % 0.3 %; Immature Granulocytes Absolute 0.02 #; Lymphocytes # 1.1 10*3/uL (1.4-4.0); Mean Corpuscular HGB Conc 32.2 GM/DL (32-36); Mean Corpuscular Volume 87.4 FL (87-102); Mean Platelet Volume 10.7 FL (9.6-12.0); Monocytes % 5.6 % (1.7-12.7); Neutrophils % 66.7 % (38.7-73.9); Platelet Count 130 T/CUMM (130-400); Red Blood Count 3.48 MC/CUMM (3.8-5.5); Red Cell Distribution Width 15.2 % (9.3-17.3); White Blood Count 6.3 T/CUMM (4-12)
[2021-09-27 18:28] LABS: Albumin 3.2 G/DL (3.4-5.0); Bilirubin,Total 0.6 MG/DL (0.20-1.00); Calcium 8.2 MG/DL (8.5-10.1); Osmolality,Calculated 284.5 MOS/KG (273-304); Potassium 4.5 MMOL/L (3.5-5.1); Total Protein 6.8 G/DL (6.4-8.2)
[2021-09-27] MEDS ORDERED: LORazepam 0.5 MG TABLET PO ONE (19:07)
[2021-09-27] MEDS: MULTIVITAMIN (BEROCCA) TABLET PO SCH (20:19)
[2021-09-28] MEDS: PANTOPRAZOLE 40 MG VIAL IV SCH (06:00)
[2021-09-28 07:42] VITALS: BP 122/72
[2021-09-28] MEDS: METOPROLOL TARTRATE 25 MG TABLET PO SCH (09:21)
[2021-09-28] MEDS: MULTIVITAMIN (OCUVITE) TABLET PO SCH (09:21)
[2021-09-28] MEDS: CALCIUM ACETATE 667 MG CAPSULE PO SCH (09:21)
[2021-09-28] MEDS: MIDODRINE 5 MG TABLET PO SCH (10:04)
== END 2021-09-28 11:40 | disposition home or self-care (01) | DRG 377 ==
LOC: N.ED 09:55 → N.5E 09:55
PROVIDERS: ADMIT Internal Medicine; ATTEND Internal Medicine

== ENCOUNTER 2022-05-11 13:32 | Observation (INO) ==
[2022-05-11] MEDS ORDERED: DILTIAZEM 25 MG/5 ML VIAL IV STA (14:03)
[2022-05-11 14:24] LABS: Basophils % 0.4 % (0.0-0.8); Eosinophils # 0.7 10*3/uL (0.0-0.87); Eosinophils % 8.9 % (0.00-10.9); Hematocrit 28.8 VOL% (35.7-47.0); Hemoglobin 9.4 GM/DL (12.0-16.0); Immature Granulocytes % 3.1 %; Immature Granulocytes Absolute 0.24 #; Lymphocytes % 13.2 % (21.3-54.2); Mean Corpuscular HGB Conc 32.6 GM/DL (32-36); Mean Platelet Volume 10.5 FL (9.6-12.0); Monocytes # 0.9 10*3/uL (0.11-0.8); Neutrophils % 62.4 % (38.7-73.9); Platelet Count 219 T/CUMM (130-400); Red Cell Distribution Width 15.8 % (9.3-17.3); White Blood Count 7.7 T/CUMM (4-12)
[2022-05-11] MEDS ORDERED: DILTIAZEM INJ 100 MG in SODIUM CHLORIDE 0.9% 100 ML IV SCH (14:30)
[2022-05-11 14:51] LABS: Alanine Aminotransferase 21 U/L (13-56); Albumin 2.7 G/DL (3.4-5.0); Alkaline Phosphatase 125 U/L (45-117); Aspartate Amino Transferase 23 U/L (0-37); Bilirubin,Total < 0.39 MG/DL (0.20-1.00); Blood Urea Nitrogen 21 MG/DL (7-18); Calcium 8.9 MG/DL (8.5-10.1); Carbon Dioxide 29 MMOL/L (21-32); Chloride 104 MMOL/L (98-107); Glucose 94 MG/DL (74-106); Osmolality,Calculated 281.4 MOS/KG (273-304); Potassium 4.1 MMOL/L (3.5-5.1); Sodium 140 MMOL/L (136-145)
[2022-05-11] MEDS ORDERED: ONDANSETRON 4 MG/2 ML VIAL IV PRN (16:08)
[2022-05-11] MEDS ORDERED: GLUCAGON 1 MG VIAL IM PRN (16:08)
[2022-05-11] MEDS ORDERED: GABAPENTIN 100 MG CAPSULE PO PRN (16:10)
[2022-05-11] MEDS ORDERED: DEXTROSE 10% 250 ML BAG IV PRN (16:25)
[2022-05-11] MEDS: DILTIAZEM 30 MG TABLET PO SCH ×2 (18:03→21:25)
[2022-05-11] MEDS: CALCIUM ACETATE 667 MG CAPSULE PO SCH (18:03)
[2022-05-11] MEDS ORDERED: ASPIRIN EC 81 MG TABLET PO SCH (19:00)
[2022-05-11] MEDS ORDERED: MULTIVITAMIN (BEROCCA) TABLET PO SCH (21:00)
[2022-05-11] MEDS: MIDODRINE 5 MG TABLET PO SCH (21:25)
[2022-05-11] MEDS: CYANOCOBALAMIN 500 MCG TABLET PO SCH (21:25)
[2022-05-11] MEDS: METOPROLOL TARTRATE 25 MG TABLET PO SCH (21:25)
[2022-05-11] MEDS: HEPARIN 5,000 UNIT/1 ML VIAL SUBCUT SCH (21:26)
[2022-05-12 04:58] LABS: Basophils % 0.4 % (0.0-0.8); Eosinophils # 0.8 10*3/uL (0.0-0.87); Eosinophils % 10.2 % (0.00-10.9); Hematocrit 27.1 VOL% (35.7-47.0); Hemoglobin 8.8 GM/DL (12.0-16.0); Immature Granulocytes % 3.6 %; Immature Granulocytes Absolute 0.27 #; Lymphocytes # 1.4 10*3/uL (1.4-4.0); Lymphocytes % 18.5 % (21.3-54.2); Mean Corpuscular HGB Conc 32.5 GM/DL (32-36); Mean Corpuscular Volume 91.2 FL (87-102); Mean Platelet Volume 10.4 FL (9.6-12.0); Monocytes # 0.8 10*3/uL (0.11-0.8); Monocytes % 10.1 % (1.7-12.7); Neutrophils % 57.2 % (38.7-73.9); Platelet Count 208 T/CUMM (130-400); Red Blood Count 2.97 MC/CUMM (3.8-5.5); Red Cell Distribution Width 15.7 % (9.3-17.3); White Blood Count 7.5 T/CUMM (4-12)
[2022-05-12 05:21] LABS: Calcium 8.6 MG/DL (8.5-10.1); Osmolality,Calculated 282.4 MOS/KG (273-304); Potassium 4.3 MMOL/L (3.5-5.1)
[2022-05-12] MEDS: CALCIUM ACETATE 667 MG CAPSULE PO SCH ×3 (07:57→16:58)
[2022-05-12] MEDS ORDERED: PANTOPRAZOLE 40 MG TABLET PO SCH (09:00)
[2022-05-12] MEDS ORDERED: DOCUSATE SODIUM 100 MG CAPSULE PO SCH (09:00)
[2022-05-12] MEDS: METOPROLOL TARTRATE 25 MG TABLET PO SCH (09:28)
[2022-05-12] MEDS: MIDODRINE 5 MG TABLET PO SCH ×2 (09:28→15:08)
[2022-05-12] MEDS: HEPARIN 5,000 UNIT/1 ML VIAL SUBCUT SCH (09:28)
[2022-05-12] MEDS: CYANOCOBALAMIN 500 MCG TABLET PO SCH (10:12)
[2022-05-12 16:57] VITALS: BP 137/79
[2022-05-12] MEDS ORDERED: ASPIRIN EC 81 MG TABLET PO SCH (21:00)
== END 2022-05-12 17:38 | disposition home or self-care (01) ==
LOC: EDBD → EDUNIT# → N.ED 13:32 → N.EDINP 13:32 → SUATTDRO 15:53 → N.TELES 19:21
PROVIDERS: ADMIT Internal Medicine Geriatric Medicine; ATTEND Family Medicine

== ENCOUNTER 2022-08-30 10:50 | Inpatient (IN) ==
[2022-08-30] MEDS ORDERED: METOPROLOL TARTRATE 5 MG/5 ML VIAL IV STA (11:39)
[2022-08-30 11:44] LABS: Basophils % 0.4 % (0.0-0.8); Eosinophils # 0.9 10*3/uL (0.0-0.87); Hematocrit 35.7 VOL% (35.7-47.0); Hemoglobin 11.6 GM/DL (12.0-16.0); Immature Granulocytes % 0.4 %; Immature Granulocytes Absolute 0.03 #; Lymphocytes % 13.4 % (21.3-54.2); Mean Corpuscular HGB Conc 32.5 GM/DL (32-36); Mean Corpuscular Volume 86.9 FL (87-102); Mean Platelet Volume 10.9 FL (9.6-12.0); Monocytes # 0.7 10*3/uL (0.11-0.8); Monocytes % 8.7 % (1.7-12.7); Neutrophils % 66.1 % (38.7-73.9); Platelet Count 206 T/CUMM (130-400); Red Blood Count 4.11 MC/CUMM (3.8-5.5); Red Cell Distribution Width 17.2 % (9.3-17.3); White Blood Count 7.7 T/CUMM (4-12)
[2022-08-30] MEDS ORDERED: LACTATED RINGERS 250 ML IV ONE (12:15)
[2022-08-30 12:26] LABS: Anisocytosis Slight; Eosinophils 12 % (0-10); Lymphocytes 19 % (20-55); Microcytosis Slight; Platelet Estimate Adequate; Polychromasia Slight; Total Cells Counted 100
[2022-08-30 13:00] LABS: Albumin 3.3 G/DL (3.4-5.0); Bilirubin,Total 0.5 MG/DL (0.20-1.00); Calcium 7.9 MG/DL (8.5-10.1); Osmolality,Calculated 290.5 MOS/KG (273-304); Potassium 5.5 MMOL/L (3.5-5.1); Thyroid Stimulating Hormone 1.18 uIU/ml (0.358-3.74); Total Protein 6.7 G/DL (6.4-8.2)
[2022-08-30] MEDS ORDERED: DOCUSATE SODIUM 100 MG CAPSULE PO PRN (15:09)
[2022-08-30] MEDS ORDERED: hydrALAZINE 20 MG/1 ML VIAL IV PRN (15:09)
[2022-08-30] MEDS: DILTIAZEM INJ 100 MG in SODIUM CHLORIDE 0.9% 100 ML IV SCH (15:35)
[2022-08-30] MEDS: ALBUTEROL 2.5 MG/3 ML NEB RESP TX SCH ×2 (19:32→23:37)
[2022-08-30] MEDS: SODIUM ZIRCONIUM CYCLOSILICATE 10 GM PACK PO SCH (20:50)
[2022-08-30] MEDS: METOPROLOL TARTRATE 25 MG TABLET PO SCH (20:51)
[2022-08-30] MEDS: HEPARIN 5,000 UNIT/1 ML VIAL SUBCUT SCH (20:51)
[2022-08-31] MEDS: ALBUTEROL 2.5 MG/3 ML NEB RESP TX SCH ×3 (07:15→20:13)
[2022-08-31] MEDS: ONDANSETRON 4 MG/2 ML VIAL IV PRN ×2 (08:22→18:04)
[2022-08-31] MEDS ORDERED: CALCIUM ACETATE 667 MG CAPSULE PO SCH (08:30)
[2022-08-31] MEDS ORDERED: ACETAMINOPHEN 325 MG TABLET PO PRN (08:34)
[2022-08-31] MEDS: SODIUM ZIRCONIUM CYCLOSILICATE 10 GM PACK PO SCH ×3 (09:49→21:11)
[2022-08-31] MEDS: HEPARIN 5,000 UNIT/1 ML VIAL SUBCUT SCH ×2 (09:49→21:11)
[2022-08-31] MEDS: MULTIVITAMIN (BEROCCA) TABLET PO SCH (09:50)
[2022-08-31] MEDS: PANTOPRAZOLE 40 MG TABLET PO SCH (09:50)
[2022-08-31] MEDS: DOCUSATE SODIUM 100 MG CAPSULE PO SCH (09:50)
[2022-08-31] MEDS: ASCORBIC ACID 500 MG TABLET PO SCH ×2 (09:50→21:10)
[2022-08-31] MEDS: METOPROLOL TARTRATE 25 MG TABLET PO SCH (09:50)
[2022-08-31] MEDS: NON-FORMULARY MEDICATION (Biotin 5 mg Capsule) PO SCH (10:35)
[2022-08-31] MEDS: CYANOCOBALAMIN 500 MCG TABLET PO SCH ×2 (10:35→21:10)
[2022-08-31] MEDS: DILTIAZEM INJ 100 MG in SODIUM CHLORIDE 0.9% 100 ML IV SCH (11:50)
[2022-08-31] MEDS: DILTIAZEM CD 120 MG CAPSULE PO SCH (13:30)
[2022-08-31] MEDS: CALCIUM ACETATE 667 MG CAPSULE PO SCH ×2 (13:33→17:58)
[2022-08-31 14:32] LABS: Basophils % 0.7 % (0.0-0.8); Eosinophils # 0.8 10*3/uL (0.0-0.87); Hematocrit 32.4 VOL% (35.7-47.0); Hemoglobin 10.7 GM/DL (12.0-16.0); Immature Granulocytes % 0.5 %; Immature Granulocytes Absolute 0.03 #; Lymphocytes # 0.9 10*3/uL (1.4-4.0); Lymphocytes % 15.6 % (21.3-54.2); Mean Corpuscular Volume 86.9 FL (87-102); Monocytes # 0.4 10*3/uL (0.11-0.8); Monocytes % 6.6 % (1.7-12.7); Neutrophils % 63.6 % (38.7-73.9); Platelet Count 206 T/CUMM (130-400); Red Blood Count 3.73 MC/CUMM (3.8-5.5); White Blood Count 5.8 T/CUMM (4-12)
[2022-08-31 14:50] LABS: Calcium 7.8 MG/DL (8.5-10.1); Osmolality,Calculated 291.4 MOS/KG (273-304); Potassium 4.8 MMOL/L (3.5-5.1)
[2022-08-31 14:51] LABS: % Iron Saturation 32.1 % (18-50)
[2022-08-31 15:03] LABS: Band Neutrophils 1 % (0-10); Eosinophils 16 % (0-10); Lymphocytes 20 % (20-55); Total Cells Counted 100
[2022-08-31 15:04] LABS: Platelet Estimate Normal; Reactive Lymphocytes Slight; Target Cells Slight
[2022-08-31 20:23] LABS: Folate > 24.00 NG/ML (5.38-24.0); Vitamin B12 > 2000 PG/ML (211-911)
[2022-08-31] MEDS: ASPIRIN EC 81 MG TABLET PO SCH (21:09)
[2022-08-31] MEDS: GABAPENTIN 100 MG CAPSULE PO SCH (21:10)
[2022-08-31] MEDS: METOPROLOL SUCCINATE XL 25 MG TABLET PO SCH (21:10)
[2022-09-01] MEDS: ALBUTEROL 2.5 MG/3 ML NEB RESP TX SCH ×4 (05:22→20:39)
[2022-09-01] MEDS ORDERED: METOPROLOL TARTRATE 5 MG/5 ML VIAL IV ONE (05:30)
[2022-09-01 06:48] LABS: Basophils % 0.6 % (0.0-0.8); Eosinophils # 0.8 10*3/uL (0.0-0.87); Eosinophils % 14.6 % (0.00-10.9); Hematocrit 36.1 VOL% (35.7-47.0); Hemoglobin 11.6 GM/DL (12.0-16.0); Immature Granulocytes % 0.2 %; Immature Granulocytes Absolute 0.01 #; Lymphocytes # 0.8 10*3/uL (1.4-4.0); Lymphocytes % 15.2 % (21.3-54.2); Mean Corpuscular HGB Conc 32.1 GM/DL (32-36); Mean Corpuscular Volume 88.7 FL (87-102); Mean Platelet Volume 10.7 FL (9.6-12.0); Monocytes # 0.5 10*3/uL (0.11-0.8); Monocytes % 8.8 % (1.7-12.7); Neutrophils % 60.6 % (38.7-73.9); Platelet Count 203 T/CUMM (130-400); Red Blood Count 4.07 MC/CUMM (3.8-5.5); Red Cell Distribution Width 16.9 % (9.3-17.3); White Blood Count 5.2 T/CUMM (4-12)
[2022-09-01 07:11] LABS: Osmolality,Calculated 289.4 MOS/KG (273-304); Potassium 4.6 MMOL/L (3.5-5.1)
[2022-09-01 07:15] LABS: Eosinophils 13 % (0-10); Lymphocytes 14 % (20-55); Platelet Estimate Normal; Total Cells Counted 100
[2022-09-01 07:27] LABS: Risk Ratio 2.7; VLDL Cholesterol 13.6 MG/DL
[2022-09-01] MEDS: SODIUM ZIRCONIUM CYCLOSILICATE 10 GM PACK PO SCH ×2 (08:46→15:00)
[2022-09-01] MEDS: MULTIVITAMIN (BEROCCA) TABLET PO SCH (08:47)
[2022-09-01] MEDS: DILTIAZEM CD 120 MG CAPSULE PO SCH (08:47)
[2022-09-01] MEDS: HEPARIN 5,000 UNIT/1 ML VIAL SUBCUT SCH ×2 (08:47→21:11)
[2022-09-01] MEDS: ASCORBIC ACID 500 MG TABLET PO SCH ×2 (08:47→21:10)
[2022-09-01] MEDS: CALCIUM ACETATE 667 MG CAPSULE PO SCH ×3 (08:47→16:46)
[2022-09-01] MEDS: PANTOPRAZOLE 40 MG TABLET PO SCH (08:48)
[2022-09-01] MEDS: METOPROLOL SUCCINATE XL 25 MG TABLET PO SCH (08:48)
[2022-09-01] MEDS: DOCUSATE SODIUM 100 MG CAPSULE PO SCH (08:48)
[2022-09-01] MEDS: NON-FORMULARY MEDICATION (Biotin 5 mg Capsule) PO SCH (08:54)
[2022-09-01] MEDS: CYANOCOBALAMIN 500 MCG TABLET PO SCH ×3 (08:54→22:46)
[2022-09-01] MEDS: DILTIAZEM INJ 100 MG in SODIUM CHLORIDE 0.9% 100 ML IV SCH (14:12)
[2022-09-01] MEDS: ONDANSETRON 4 MG/2 ML VIAL IV PRN (16:50)
[2022-09-01] MEDS: METOPROLOL SUCCINATE XL 50 MG TABLET PO SCH (21:10)
[2022-09-01] MEDS: ASPIRIN EC 81 MG TABLET PO SCH (21:10)
[2022-09-01] MEDS: GABAPENTIN 100 MG CAPSULE PO SCH (21:10)
[2022-09-02] MEDS: ALBUTEROL 2.5 MG/3 ML NEB RESP TX SCH ×2 (01:11→07:24)
[2022-09-02 06:35] LABS: Basophils % 0.6 % (0.0-0.8); Eosinophils % 16.2 % (0.00-10.9); Hematocrit 34.7 VOL% (35.7-47.0); Hemoglobin 11.2 GM/DL (12.0-16.0); Immature Granulocytes % 0.6 %; Immature Granulocytes Absolute 0.04 #; Lymphocytes % 15.9 % (21.3-54.2); Mean Corpuscular HGB Conc 32.3 GM/DL (32-36); Mean Corpuscular Volume 87.6 FL (87-102); Mean Platelet Volume 10.9 FL (9.6-12.0); Monocytes # 0.6 10*3/uL (0.11-0.8); Neutrophils % 56.7 % (38.7-73.9); Platelet Count 215 T/CUMM (130-400); Red Blood Count 3.96 MC/CUMM (3.8-5.5); Red Cell Distribution Width 16.8 % (9.3-17.3); White Blood Count 6.3 T/CUMM (4-12)
[2022-09-02 06:56] LABS: Calcium 8.4 MG/DL (8.5-10.1); Osmolality,Calculated 291.5 MOS/KG (273-304); Potassium 4.9 MMOL/L (3.5-5.1)
[2022-09-02 08:14] LABS: Band Neutrophils 1 % (0-10); Eosinophils 16 % (0-10); Lymphocytes 18 % (20-55); Total Cells Counted 100
[2022-09-02 08:15] LABS: Microcytosis Slight; Platelet Estimate Normal; Target Cells Slight
[2022-09-02] MEDS ORDERED: CHOLECALCIFEROL 1,000 UNIT TABLET PO SCH (09:00)
[2022-09-02] MEDS: PANTOPRAZOLE 40 MG TABLET PO SCH (09:29)
[2022-09-02] MEDS: NON-FORMULARY MEDICATION (Biotin 5 mg Capsule) PO SCH (09:29)
[2022-09-02] MEDS: METOPROLOL SUCCINATE XL 50 MG TABLET PO SCH (09:30)
[2022-09-02] MEDS: MULTIVITAMIN (BEROCCA) TABLET PO SCH (09:30)
[2022-09-02] MEDS: CYANOCOBALAMIN 500 MCG TABLET PO SCH (09:30)
[2022-09-02] MEDS: DILTIAZEM CD 120 MG CAPSULE PO SCH (09:30)
[2022-09-02] MEDS: CALCIUM ACETATE 667 MG CAPSULE PO SCH ×2 (09:30→12:34)
[2022-09-02] MEDS: HEPARIN 5,000 UNIT/1 ML VIAL SUBCUT SCH (09:31)
[2022-09-02] MEDS: ASCORBIC ACID 500 MG TABLET PO SCH (09:36)
[2022-09-02] MEDS: DOCUSATE SODIUM 100 MG CAPSULE PO SCH (09:36)
[2022-09-02 12:26] VITALS: BP 164/79
[2022-09-02] MEDS: ONDANSETRON 4 MG/2 ML VIAL IV PRN (12:33)
[2022-09-02] MEDS: DILTIAZEM INJ 100 MG in SODIUM CHLORIDE 0.9% 100 ML IV SCH (14:28)
== END 2022-09-02 14:41 | disposition home or self-care (01) | DRG 308 ==
LOC: N.ED 10:50 → SUATTDRO 15:09 → INTOOBSV 15:09 → N.EDINP 15:09 → N.TELEN 15:56
PROVIDERS: ADMIT Internal Medicine; ATTEND Hospitalist

== ENCOUNTER 2022-09-02 15:25 | Inpatient (IN) ==
[2022-09-02 17:55] LABS: Calcium 8.4 MG/DL (8.5-10.1); Osmolality,Calculated 294.5 MOS/KG (273-304); Potassium 5.9 MMOL/L (3.5-5.1)
[2022-09-02] MEDS ORDERED: DILTIAZEM CD 120 MG CAPSULE PO STA (17:55)
[2022-09-02] MEDS ORDERED: METOPROLOL SUCCINATE XL 50 MG TABLET PO ONE (17:55)
[2022-09-02] MEDS ORDERED: SODIUM POLYSTYRENE SULFATE 15 GM/60 ML BOTTLE PO STA (19:48)
[2022-09-02] MEDS ORDERED: CALCIUM GLUCONATE RIDER 1,000 MG/50 ML PREMIX IV ONE (19:48)
[2022-09-02] MEDS ORDERED: DEXTROSE 50% 25 GM/50 ML VIAL IV STA (19:49)
[2022-09-02] MEDS ORDERED: INSULIN REGULAR 100 UNIT/ML IV STA (19:49)
[2022-09-02] MEDS ORDERED: INSULIN REGULAR 10 UNIT, CALCIUM GLUCONATE 1,000 MG in DEXTROSE 10% 250 ML IV ONE (19:56)
[2022-09-02] MEDS ORDERED: CALCIUM ACETATE 667 MG CAPSULE PO SCH (20:00)
[2022-09-02] MEDS ORDERED: SODIUM BICARB INJ 50 MEQ in DEXTROSE 5% 1,000 ML IV SCH (20:00)
[2022-09-02] MEDS ORDERED: PROMETHAZINE 25 MG TABLET PO PRN (20:00)
[2022-09-02] MEDS ORDERED: ACETAMINOPHEN 325 MG TABLET PO PRN (20:31)
[2022-09-02] MEDS: ASCORBIC ACID 500 MG TABLET PO SCH (20:47)
[2022-09-02] MEDS: PANTOPRAZOLE 40 MG TABLET PO SCH (20:48)
[2022-09-02] MEDS: METOPROLOL SUCCINATE XL 50 MG TABLET PO SCH (20:48)
[2022-09-02] MEDS: HEPARIN 5,000 UNIT/1 ML VIAL SUBCUT SCH (20:48)
[2022-09-02] MEDS: CYANOCOBALAMIN 500 MCG TABLET PO SCH (20:48)
[2022-09-02] MEDS ORDERED: DILTIAZEM 50 MG/10 ML VIAL IV STA (21:11)
[2022-09-02] MEDS ORDERED: DILTIAZEM 25 MG/5 ML VIAL IV ONE (21:16)
[2022-09-03 06:06] LABS: Basophils % 0.6 % (0.0-0.8); Eosinophils # 0.8 10*3/uL (0.0-0.87); Hematocrit 31.9 VOL% (35.7-47.0); Hemoglobin 10.5 GM/DL (12.0-16.0); Immature Granulocytes % 0.5 %; Immature Granulocytes Absolute 0.03 #; Lymphocytes # 1.2 10*3/uL (1.4-4.0); Mean Corpuscular HGB Conc 32.9 GM/DL (32-36); Mean Corpuscular Volume 85.8 FL (87-102); Mean Platelet Volume 10.8 FL (9.6-12.0); Monocytes # 0.6 10*3/uL (0.11-0.8); Monocytes % 8.5 % (1.7-12.7); Neutrophils % 60.4 % (38.7-73.9); Platelet Count 204 T/CUMM (130-400); Red Blood Count 3.72 MC/CUMM (3.8-5.5); Red Cell Distribution Width 16.7 % (9.3-17.3); White Blood Count 6.5 T/CUMM (4-12)
[2022-09-03 06:28] LABS: Eosinophils 17 % (0-10); Hypochromia Slight; Lymphocytes 14 % (20-55); Microcytosis Slight; Platelet Estimate Adequate; Total Cells Counted 100
[2022-09-03 06:41] LABS: Albumin 2.5 G/DL (3.4-5.0); Bilirubin,Total 0.4 MG/DL (0.20-1.00); Calcium 8.2 MG/DL (8.5-10.1); Osmolality,Calculated 299.4 MOS/KG (273-304); Potassium 5.9 MMOL/L (3.5-5.1); Thyroid Stimulating Hormone 1.55 uIU/ml (0.358-3.74); Total Protein 6.2 G/DL (6.4-8.2)
[2022-09-03] MEDS: ASCORBIC ACID 500 MG TABLET PO SCH ×2 (08:32→21:32)
[2022-09-03] MEDS: CYANOCOBALAMIN 500 MCG TABLET PO SCH ×2 (08:32→21:32)
[2022-09-03] MEDS: HEPARIN 5,000 UNIT/1 ML VIAL SUBCUT SCH ×2 (08:32→21:32)
[2022-09-03] MEDS: DOCUSATE SODIUM 100 MG CAPSULE PO SCH (08:32)
[2022-09-03] MEDS: CALCIUM ACETATE 667 MG CAPSULE PO SCH ×3 (08:33→16:15)
[2022-09-03] MEDS: CHOLECALCIFEROL 1,000 UNIT TABLET PO SCH (08:33)
[2022-09-03] MEDS: MULTIVITAMIN (BEROCCA) TABLET PO SCH (08:33)
[2022-09-03] MEDS: PANTOPRAZOLE 40 MG TABLET PO SCH ×2 (08:33→21:32)
[2022-09-03] MEDS: NON-FORMULARY MEDICATION (Biotin 5 mg Capsule) PO SCH (08:33)
[2022-09-03] MEDS: METOPROLOL SUCCINATE XL 50 MG TABLET PO SCH (08:33)
[2022-09-03] MEDS ORDERED: DILTIAZEM CD 120 MG CAPSULE PO SCH (09:00)
[2022-09-03] MEDS: FLECAINIDE 50 MG TABLET PO SCH (21:32)
[2022-09-03] MEDS: ASPIRIN EC 81 MG TABLET PO SCH (21:32)
[2022-09-04 05:25] LABS: Basophils # 0.1 10*3/uL (0.0-0.2); Basophils % 0.8 % (0.0-0.8); Eosinophils # 0.9 10*3/uL (0.0-0.87); Eosinophils % 14.8 % (0.00-10.9); Hematocrit 32.3 VOL% (35.7-47.0); Hemoglobin 10.6 GM/DL (12.0-16.0); Immature Granulocytes % 0.6 %; Immature Granulocytes Absolute 0.04 #; Lymphocytes # 1.2 10*3/uL (1.4-4.0); Mean Corpuscular HGB Conc 32.8 GM/DL (32-36); Mean Corpuscular Volume 86.1 FL (87-102); Mean Platelet Volume 10.9 FL (9.6-12.0); Monocytes # 0.6 10*3/uL (0.11-0.8); Monocytes % 9.7 % (1.7-12.7); Neutrophils % 55.1 % (38.7-73.9); Platelet Count 207 T/CUMM (130-400); Red Blood Count 3.75 MC/CUMM (3.8-5.5); Red Cell Distribution Width 16.7 % (9.3-17.3); White Blood Count 6.4 T/CUMM (4-12)
[2022-09-04 05:49] LABS: Calcium 8.1 MG/DL (8.5-10.1); Osmolality,Calculated 286.7 MOS/KG (273-304); Potassium 5.2 MMOL/L (3.5-5.1)
[2022-09-04 06:02] LABS: Eosinophils 15 % (0-10); Hypochromia Slight; Lymphocytes 18 % (20-55); Microcytosis Slight; Platelet Estimate Adequate; Total Cells Counted 100
[2022-09-04] MEDS: CALCIUM ACETATE 667 MG CAPSULE PO SCH ×3 (08:07→17:02)
[2022-09-04] MEDS: FLECAINIDE 50 MG TABLET PO SCH ×2 (08:09→21:30)
[2022-09-04] MEDS: CYANOCOBALAMIN 500 MCG TABLET PO SCH ×2 (08:09→21:30)
[2022-09-04] MEDS: CHOLECALCIFEROL 1,000 UNIT TABLET PO SCH (08:09)
[2022-09-04] MEDS: MULTIVITAMIN (BEROCCA) TABLET PO SCH (08:09)
[2022-09-04] MEDS: PANTOPRAZOLE 40 MG TABLET PO SCH ×2 (08:09→21:29)
[2022-09-04] MEDS: ASCORBIC ACID 500 MG TABLET PO SCH ×2 (08:10→21:29)
[2022-09-04] MEDS: DOCUSATE SODIUM 100 MG CAPSULE PO SCH (08:10)
[2022-09-04] MEDS: HEPARIN 5,000 UNIT/1 ML VIAL SUBCUT SCH ×2 (08:10→21:28)
[2022-09-04] MEDS: NON-FORMULARY MEDICATION (Biotin 5 mg Capsule) PO SCH (12:28)
[2022-09-04] MEDS: ASPIRIN EC 81 MG TABLET PO SCH (21:29)
[2022-09-05 05:13] LABS: Basophils % 0.4 % (0.0-0.8); Eosinophils % 14.3 % (0.00-10.9); Hematocrit 33.5 VOL% (35.7-47.0); Immature Granulocytes % 0.4 %; Immature Granulocytes Absolute 0.03 #; Lymphocytes # 1.4 10*3/uL (1.4-4.0); Lymphocytes % 19.5 % (21.3-54.2); Mean Corpuscular HGB Conc 32.8 GM/DL (32-36); Mean Corpuscular Volume 86.1 FL (87-102); Mean Platelet Volume 9.9 FL (9.6-12.0); Monocytes # 0.6 10*3/uL (0.11-0.8); Monocytes % 7.9 % (1.7-12.7); Neutrophils % 57.5 % (38.7-73.9); Platelet Count 233 T/CUMM (130-400); Red Blood Count 3.89 MC/CUMM (3.8-5.5); Red Cell Distribution Width 16.7 % (9.3-17.3)
[2022-09-05 05:29] LABS: Calcium 8.5 MG/DL (8.5-10.1); Osmolality,Calculated 294.7 MOS/KG (273-304); Potassium 5.2 MMOL/L (3.5-5.1)
[2022-09-05 05:34] LABS: Band Neutrophils 1 % (0-10); Eosinophils 16 % (0-10); Lymphocytes 22 % (20-55); Total Cells Counted 100
[2022-09-05 05:35] LABS: Hypochromia Slight; Microcytosis 1+; Target Cells Slight
[2022-09-05] MEDS: CALCIUM ACETATE 667 MG CAPSULE PO SCH (07:58)
[2022-09-05] MEDS: CHOLECALCIFEROL 1,000 UNIT TABLET PO SCH (08:00)
[2022-09-05] MEDS: MULTIVITAMIN (BEROCCA) TABLET PO SCH (08:00)
[2022-09-05] MEDS: PANTOPRAZOLE 40 MG TABLET PO SCH (08:00)
[2022-09-05] MEDS: CYANOCOBALAMIN 500 MCG TABLET PO SCH (08:00)
[2022-09-05] MEDS: FLECAINIDE 50 MG TABLET PO SCH (08:00)
[2022-09-05] MEDS: ASCORBIC ACID 500 MG TABLET PO SCH (08:00)
[2022-09-05] MEDS: DOCUSATE SODIUM 100 MG CAPSULE PO SCH (08:00)
[2022-09-05] MEDS: HEPARIN 5,000 UNIT/1 ML VIAL SUBCUT SCH (08:01)
[2022-09-05] MEDS: NON-FORMULARY MEDICATION (Biotin 5 mg Capsule) PO SCH (08:01)
[2022-09-05 09:11] VITALS: BP 157/98
== END 2022-09-05 15:23 | disposition home or self-care (01) | DRG 308 ==
LOC: N.EDINP 15:25 → N.ED 15:25 → N.EDINP 23:05 → N.2W 23:29 → SUATTDRO 09-03 14:29 → N.TELES 09-03 17:29
PROVIDERS: ADMIT Internal Medicine; ATTEND Hospitalist